=== PATIENT | female | born 1950 | race Caucasian/White ===

== ENCOUNTER 2021-09-20 16:02 | Emergency (ER) | payer OTHER, MEDICAID ==
[~2021-09-20] VITALS: Ht 149.9 cm; Wt 44.0 kg
[2021-09-20 16:42] VITALS: BP_SYST 117
--- NOTE | 2021-09-20 16:49 | NUR ---
Pt triaged and placed in waiting room. Dr. Madsen made aware.
--- NOTE | 2021-09-20 17:08 | NUR ---
Dr Madsen to waiting room to see patient.
--- NOTE | 2021-09-20 17:10 | NUR ---
Pt came in from home reporting lower back pain, chronic, due to skating roller derby in the past. Also reports PMH sz. Alert and oriented x 3. Ambulates with steady gait. Awaiting diagnostics per Dr Madsen.
[2021-09-20] MEDS ORDERED: levETIRAcetam 500 MG TABLET PO ONE (17:15)
[2021-09-20] MEDS ORDERED: HYDROcodone/ACETAMIN 10-325 MG TAB PO ONE (17:15)
--- NOTE | 2021-09-20 17:23 | NUR ---
Jose Juan that was ordered by Dr. Madsen has been given.
--- NOTE | 2021-09-20 17:24 | NUR ---
tax map technician drawing blood work in triage room. pt has no c/o.
[2021-09-20 17:41] LABS: BASOPHILS % (AUTO) 0.6 % (0.0-2.0); EOSINOPHILS # (AUTO) 0.4 K/uL (0.0-0.4); EOSINOPHILS % (AUTO) 5.7 % (0.0-4.0); HEMATOCRIT 35.3 % (36-48); HEMOGLOBIN 11.8 g/dL (12.0-16.0); LYMPHOCYTES # (AUTO) 1.6 K/uL (1.0-5.5); LYMPHOCYTES % (AUTO) 24.3 % (20.5-51.5); MEAN CORPUSCULAR HEMOGLOBIN 32 pg (27-31); MEAN CORPUSCULAR HGB CONC 34 % (32-36); MEAN CORPUSCULAR VOLUME 95 fL (79.0-98.0); MONOCYTES # (AUTO) 0.4 K/uL (0.0-1.0); MONOCYTES % (AUTO) 6.5 % (1.7-9.3); NEUTROPHILS % (AUTO) 62.9 % (40.0-70.0); PLATELET COUNT (AUTO) 431 K/uL (130-430); RED BLOOD CELL COUNT(AUTO) 3.72 MIL/uL (4.2-6.2); RED CELL DISTRIBUTION WIDTH 16.1 % (9.0-15.0); WHITE BLOOD COUNT (AUTO) 6.4 K/uL (4.8-10.8)
[2021-09-20 17:47] LABS: ANION GAP 5 (5-15); CALCIUM 9.8 mg/dL (8.4-11.0); CHLORIDE 107 mmol/L (98-107); CREATININE 0.81 mg/dL (0.55-1.30); GLUCOSE 94 mg/dL (70-99); POTASSIUM 4.1 mmol/L (3.5-5.1); SODIUM SERUM 138 mmol/L (136-145); UREA NITROGEN, BLOOD 12 mg/dL (8-21)
[2021-09-20 17:53] LABS: ALANINE AMINOTRANSFERASE 15 U/L (12-78); ALBUMIN 3.5 g/dL (3.4-4.8); ASPARTATE AMINOTRANSFERASE 17 U/L (10-37); TOTAL BILIRUBIN < 0.1 mg/dL (0.0-1.0)
[2021-09-20] MEDS ORDERED: HYDR-3917 PO (18:54)
[2021-09-20 19:21] VITALS: BP_SYST 117
--- NOTE | 2021-09-20 19:23 | NUR ---
Patient given written and verbal discharge instructions and verbalizes understanding. ER MD discussed with patient the results and treatment provided. Patient in stable condition. ID arm band removed. Rx of NORCO given. Patient educated on pain management and to follow up with PMD. Pain Scale 0/10. Opportunity for questions provided and answered. Medication side effect fact sheet provided.
== END 2021-09-20 19:21 | disposition home or self-care (01) ==
LOC: SED 16:02
DX: M54.9 Dorsalgia, unspecified (principal); R56.9 Unspecified convulsions
CPT/HCPCS: 36415; 80053; 85025; 99283

== ENCOUNTER 2021-09-21 13:23 | Emergency (ER) | payer OTHER, MEDICAID ==
[~2021-09-21] VITALS: Ht 149.9 cm; Wt 43.5 kg
[~2021-09-21 13:23] MED LIST: HYDR-3917 PO
[2021-09-21 14:18] VITALS: BP_SYST 129
--- NOTE | 2021-09-21 14:30 | NUR ---
pt triaged, vs stable, place pt back in waiting room adv that once we have room available we will call
--- NOTE | 2021-09-21 15:45 | NUR ---
PT AMBULATING IN LOBBY WITH STEADY GAIT
--- NOTE | 2021-09-21 16:38 | NUR ---
PT PLACED IN ER H1
--- NOTE | 2021-09-21 17:04 | NUR ---
ER DR. CHAPA EXAMINING PT
[2021-09-21] MEDS ORDERED: KETOROLAC TROMETHAMINE 30 MG VIAL IM ONE (17:30)
[2021-09-21 17:34] VITALS: BP_SYST 129
== END 2021-09-21 17:34 | disposition home or self-care (01) ==
LOC: SED 13:23
DX: S93.402A Sprain of unspecified ligament of left ankle, initial encounter (principal); M54.50 Low back pain, unspecified; F17.210 Nicotine dependence, cigarettes, uncomplicated; R56.9 Unspecified convulsions; X58.XXXA Exposure to other specified factors, initial encounter; Y93.89 Activity, other specified; Y92.89 Other specified places as the place of occurrence of the external cause; Y99.8 Other external cause status
CPT/HCPCS: 29540; 96372; 99283; J1885

== ENCOUNTER 2021-09-27 12:25 | Emergency (ER) | payer OTHER, MEDICAID ==
[~2021-09-27] VITALS: Ht 149.9 cm; Wt 44.5 kg
[2021-09-27 12:43] VITALS: BP_SYST 112
[2021-09-27] MEDS ORDERED: IPRATROPIUM/ALBUTEROL SULFATE 3 ML AMPUL.NEB (DUONEB) INH ONE (13:45)
[2021-09-27] MEDS ORDERED: LIDOCAINE PATCH 5% 1 EA TP SCH (13:45)
[2021-09-27] MEDS ORDERED: ALBUTEROL SULFATE 0.083% 2.5 MG/3 ML VIAL.NEB INH ONE (13:45)
[2021-09-27] MEDS ORDERED: predniSONE 20 MG TABLET PO ONE (13:45)
[2021-09-27] MEDS ORDERED: KETOROLAC TROMETHAMINE 15 MG VIAL IM ONE (13:45)
[2021-09-27] MEDS ORDERED: ALBMDI INH (14:13)
[2021-09-27] MEDS ORDERED: GUAI-723 PO (14:13)
[2021-09-27] MEDS ORDERED: PRED20TA PO (14:13)
[2021-09-27] MEDS ORDERED: BENZ100C92 PO (14:13)
[2021-09-27 14:33] VITALS: BP_SYST 112
== END 2021-09-27 14:33 | disposition home or self-care (01) ==
LOC: SED 12:25
DX: J06.9 Acute upper respiratory infection, unspecified (principal); G89.29 Other chronic pain; M54.6 Pain in thoracic spine; Z79.899 Other long term (current) drug therapy
CPT/HCPCS: 71046; 94640; 96372; 99283; J1885; J7512; J7613

== ENCOUNTER 2021-10-27 09:51 | Emergency (ER) | payer OTHER, MEDICAID ==
[~2021-10-27] VITALS: Ht 149.9 cm; Wt 44.0 kg
[~2021-10-27 09:51] MED LIST changes: +ALBMDI INH; +BENZ100C92 PO; +GUAI-723 PO; +PRED20TA PO
--- NOTE | 2021-10-27 09:55 | NUR ---
Patient to ER bed 2 to gown for evaluation. Side rails up. Report given to Marika.
[2021-10-27 10:01] VITALS: BP_SYST 139
--- NOTE | 2021-10-27 10:02 | NUR ---
Pt in bed #2 coming from home ambulatory with steady gait. Pt is A&Ox4. Pt c/o having sob x2 days. Pt's O2 saturation currently at 95% RA. No s/s of distress noted. Not using accessory muscles and respirations even and unlabored. No chest pain and denies n/v. Skin intact. NKA. Pt has hx of Bronchitis, CVA, Anuerysm, and seizures. Pt states she smokes about a pack of cigarettes a day. Connected pt to waste water worker. Bed in lowest position.
--- NOTE | 2021-10-27 10:14 | NUR ---
HAIDER Murrieta at bedside examining patient.
[2021-10-27] MEDS ORDERED: IPRATROPIUM BROM 0.5 MG/2.5 ML VIAL.NEB (ATROVENT) INH ONE (10:30)
--- NOTE | 2021-10-27 10:34 | NUR ---
RT at bedside providing breathing tx to pt.
--- NOTE | 2021-10-27 10:36 | NUR ---
computer systems technician at bedside.
[2021-10-27] MEDS ORDERED: NS 500 ML IV ONE (10:45)
[2021-10-27] MEDS ORDERED: cefTRIAXone 1 GM in D5W 50 ML IV ONE (10:45)
[2021-10-27] MEDS ORDERED: methylPREDNISolone SOD SUCC/PF 62.5 MG/ML VIAL IVP ONE (10:45)
[2021-10-27] MEDS ORDERED: AZITHROMYCIN 500 MG in NS 250 ML IV ONE (10:45)
[2021-10-27] MEDS ORDERED: ALBUTEROL SULFATE 0.083% 2.5 MG/3 ML VIAL.NEB INH ONE ×2 (10:45→13:00)
--- NOTE | 2021-10-27 10:46 | NUR ---
EKG performed at BS by myself (Marika LOPEZ). Physician given copy of EKG for review.
--- NOTE | 2021-10-27 10:58 | NUR ---
# 22 gauge angiocath placed to left wrist. Use of asceptic technique. Opsite placed over site. Blood return noted. Flushed with 10 cc of normal saline. No evidence of infiltration noted. Patient tolerated well.
[2021-10-27 11:04] LABS: BASOPHILS # (AUTO) 0.1 K/uL (0.0-0.2); BASOPHILS % (AUTO) 1.9 % (0.0-2.0); EOSINOPHILS # (AUTO) 0.4 K/uL (0.0-0.4); EOSINOPHILS % (AUTO) 8.9 % (0.0-4.0); HEMATOCRIT 34.7 % (36-48); HEMOGLOBIN 11.7 g/dL (12.0-16.0); LYMPHOCYTES # (AUTO) 1.1 K/uL (1.0-5.5); LYMPHOCYTES % (AUTO) 25.7 % (20.5-51.5); MEAN CORPUSCULAR HEMOGLOBIN 31 pg (27-31); MEAN CORPUSCULAR HGB CONC 34 % (32-36); MEAN CORPUSCULAR VOLUME 93 fL (79.0-98.0); MONOCYTES # (AUTO) 0.3 K/uL (0.0-1.0); MONOCYTES % (AUTO) 6.6 % (1.7-9.3); NEUTROPHILS # (AUTO) 2.4 K/uL (1.8-7.7); NEUTROPHILS % (AUTO) 56.9 % (40.0-70.0); PLATELET COUNT (AUTO) 268 K/uL (130-430); RED BLOOD CELL COUNT(AUTO) 3.74 MIL/uL (4.2-6.2); RED CELL DISTRIBUTION WIDTH 14.7 % (9.0-15.0); WHITE BLOOD COUNT (AUTO) 4.3 K/uL (4.8-10.8)
[2021-10-27] MEDS ORDERED: cefTRIAXone 1 GM VIAL ONE (11:09)
--- NOTE | 2021-10-27 11:15 | NUR ---
Chest X-Ray being done at bedside.
[2021-10-27 11:41] LABS: INR 0.9 (0.8-1.2); PROTHROMBIN TIME 9.9 SECS (9.5-12.5)
[2021-10-27] MEDS ORDERED: AZITHROMYCIN 500 MG/VIAL (ZITHROMAX) IV ONE (11:42)
[2021-10-27 12:14] LABS: ANION GAP 10 (5-15); CALCIUM 8.7 mg/dL (8.4-11.0); CHLORIDE 104 mmol/L (98-107); CREATININE 0.73 mg/dL (0.55-1.30); GLUCOSE 81 mg/dL (70-99); POTASSIUM 4.3 mmol/L (3.5-5.1); SODIUM SERUM 137 mmol/L (136-145); UREA NITROGEN, BLOOD 13 mg/dL (8-21)
[2021-10-27 12:25] LABS: ALANINE AMINOTRANSFERASE 15 U/L (12-78); ALBUMIN 3.6 g/dL (3.4-4.8); ASPARTATE AMINOTRANSFERASE 17 U/L (10-37)
[2021-10-27 12:55] LABS: TOTAL BILIRUBIN < 0.1 mg/dL (0.0-1.0)
[2021-10-27] MEDS ORDERED: PRED20TA PO (14:10)
[2021-10-27] MEDS ORDERED: ALBMDI INH (14:10)
[2021-10-27] MEDS ORDERED: ZIT250 PO (14:10)
[2021-10-27 14:29] VITALS: BP_SYST 129
--- NOTE | 2021-10-27 14:29 | NUR ---
Patient given written and verbal discharge instructions and verbalizes understanding. ER MD discussed with patient the results and treatment provided. Patient in stable condition. ID arm band removed. IV catheter removed intact and dressing applied, no active bleeding. Rx of ALBUTEROL, PREDNISONE, AND ZPAK given. Patient educated COPD SIGNS SYMPTOMS AND LIFESTYLE CHANGE. Opportunity for questions provided and answered. Medication side effect fact sheet provided.
== END 2021-10-27 14:29 | disposition home or self-care (01) ==
LOC: SED 09:51
DX: J20.9 Acute bronchitis, unspecified (principal); J44.1 Chronic obstructive pulmonary disease with (acute) exacerbation; F17.210 Nicotine dependence, cigarettes, uncomplicated
CPT/HCPCS: 36415; 71045; 80053; 83605; 83880; 84484; 85025; 85610; 87040; 93005; 94640; 96365; 96367; 96375; 99285; J0456; J0696; J2930; J7613; 96368

== ENCOUNTER 2022-09-30 12:30 | Emergency (ER) | payer OTHER, MEDICAID ==
[~2022-09-30] VITALS: Ht 149.9 cm; Wt 40.4 kg
[~2022-09-30 12:30] MED LIST changes: +ZIT250 PO
[2022-09-30 12:38] VITALS: BP_SYST 135
[2022-09-30] MEDS ORDERED: ALBMDI INH (12:42)
[2022-09-30] MEDS ORDERED: SOM350 PO (12:42)
[2022-09-30 12:50] VITALS: BP_SYST 135
[2022-10-01] MEDS ORDERED: ALBMDI INH (08:15)
[2022-10-01] MEDS ORDERED: SOM350 PO (08:15)
[2022-10-01] MEDS ORDERED: PRED20TA PO (08:15)
== END 2022-09-30 12:50 | disposition home or self-care (01) ==
LOC: SED 12:30
DX: J44.9 Chronic obstructive pulmonary disease, unspecified (principal); M54.50 Low back pain, unspecified; G89.29 Other chronic pain; R06.02 Shortness of breath; Z79.899 Other long term (current) drug therapy
CPT/HCPCS: 99283

== ENCOUNTER 2022-10-01 06:30 | Emergency (ER) | payer OTHER, MEDICAID ==
[~2022-10-01 06:30] MED LIST changes: +SOM350 PO
--- NOTE | 2022-10-01 06:30 | NUR ---
ER at bedside examining patient.
--- NOTE | 2022-10-01 06:30 | NUR ---
PT ROOMED TO BED 7, PT WAS PLACED ON CARDIAC MONITTORING. PT IN GOWN.
[2022-10-01 06:35] VITALS: BP_SYST 139
--- NOTE | 2022-10-01 06:50 | NUR ---
PT BIB SELF FROM HOME, AMBULATED TO BED 7. PT A&Ox4, ABLE TO MAKE NEEDS KNOWN. PT C/O LOWER BACK PAIN x3 DAYS. PT RATES PAIN 10/10/ PT DESCRIBES PAIN THROBBING. PT STATES SHE HAS SOB. PT DENIES N/V/D, FEVER AND CHILLS. PT DENIES CHEST PAIN. PT STATES SHE TOOK EXCEDRINE AT 0200. SAFETY MEASURES IN PLACE.
--- NOTE | 2022-10-01 07:24 | NUR ---
PT AWAKE AND ALERT, NO S/S OF DISCOMFORT NOTED AT THIS TIME. ENDORSED PT AND CARE TO ONCOMING NURSE JESSICA KRAUSE.
[2022-10-01 07:29] LABS: BASOPHILS # (AUTO) 0.1 K/uL (0.0-0.2); BASOPHILS % (AUTO) 0.9 % (0.0-2.0); EOSINOPHILS # (AUTO) 0.2 K/uL (0.0-0.4); EOSINOPHILS % (AUTO) 3.8 % (0.0-4.0); HEMOGLOBIN 13.8 g/dL (12.0-16.0); LYMPHOCYTES # (AUTO) 1.8 K/uL (1.0-5.5); LYMPHOCYTES % (AUTO) 30.7 % (20.5-51.5); MEAN CORPUSCULAR HEMOGLOBIN 31 pg (27-31); MEAN CORPUSCULAR HGB CONC 33 % (32-36); MEAN CORPUSCULAR VOLUME 95 fL (79.0-98.0); MONOCYTES # (AUTO) 0.5 K/uL (0.0-1.0); MONOCYTES % (AUTO) 8.4 % (1.7-9.3); NEUTROPHILS # (AUTO) 3.3 K/uL (1.8-7.7); NEUTROPHILS % (AUTO) 56.2 % (40.0-70.0); PLATELET COUNT (AUTO) 218 K/uL (130-430); RED BLOOD CELL COUNT(AUTO) 4.44 MIL/uL (4.2-6.2); RED CELL DISTRIBUTION WIDTH 14.9 % (9.0-15.0); WHITE BLOOD COUNT (AUTO) 5.9 K/uL (4.8-10.8)
[2022-10-01 07:48] LABS: ANION GAP 13 (5-15); CALCIUM 8.8 mg/dL (8.4-11.0); CHLORIDE 109 mmol/L (98-107); CREATININE 0.71 mg/dL (0.55-1.30); GLUCOSE 98 mg/dL (70-99); UREA NITROGEN, BLOOD 15 mg/dL (8-21)
[2022-10-01 07:54] LABS: ALANINE AMINOTRANSFERASE 14 U/L (12-78); ALBUMIN 3.9 g/dL (3.4-4.8); ASPARTATE AMINOTRANSFERASE 23 U/L (10-37); TOTAL BILIRUBIN 0.3 mg/dL (0.0-1.0)
[2022-10-01 08:08] LABS: BILIRUBIN,URINE NEGATIVE (NEGATIVE); BLOOD, URINE NEGATIVE (NEGATIVE); CLARITY/URINE CLEAR (CLEAR); COLOR,URINE YELLOW (YELLOW); GLUCOSE,URINE NEGATIVE (NEGATIVE); KETONES,URINE NEGATIVE (NEGATIVE); LEUKOCYTE ESTERASE ,URINE NEGATIVE (NEGATIVE); NITRITE, URINE NEGATIVE (NEGATIVE); PROTEIN URINE NEGATIVE (NEGATIVE); UROBILINOGEN,URINE 0.2 (0.2-1.0)
[2022-10-01] MEDS ORDERED: SOM350 PO (08:15)
[2022-10-01] MEDS ORDERED: PRED20TA PO (08:15)
[2022-10-01] MEDS ORDERED: ALBMDI INH (08:15)
[2022-10-01 08:29] LABS: ACETONE, SERUM NEGATIVE (NEGATIVE)
[2022-10-01] MEDS ORDERED: KETOROLAC TROMETHAMINE 30 MG VIAL IM ONE (08:30)
[2022-10-01 08:50] LABS: CREATINE KINASE MB 2.7 ng/mL (0-3.6)
[2022-10-01 08:53] VITALS: BP_SYST 135
--- NOTE | 2022-10-01 08:54 | NUR ---
Patient given written and verbal discharge instructions and verbalizes understanding. ER MD DR LATHAM discussed with patient the results and treatment provided. Patient in stable condition. ID arm band removed. Rx of ALBUTEROL, PREDNISONE, SOMA given. Patient educated on pain management and to follow up with PMD. Pain Scale 6/10. Opportunity for questions provided and answered. Medication side effect fact sheet provided.
== END 2022-10-01 08:54 | disposition home or self-care (01) ==
LOC: SED 06:30
DX: R53.1 Weakness (principal); Z79.899 Other long term (current) drug therapy
CPT/HCPCS: 99285; 71045; 80053; 82009; 82550; 82553; 85025; 84484; 36415; 93005; 96372; 83605; 81003; J1885

== ENCOUNTER 2022-10-05 08:26 | Emergency (ER) | payer OTHER, MEDICAID ==
[~2022-10-05] VITALS: Ht 149.9 cm; Wt 43.1 kg
[2022-10-05 08:30] VITALS: BP_SYST 161
--- NOTE | 2022-10-05 08:30 | NUR ---
Placed in room 07 . Placed on mini shifter, blood pressure machine and pulse oximeter. To gown for exam. Side rails up. Report given to TAMIE FLYNN AND TAMIE LUU.
--- NOTE | 2022-10-05 08:35 | NUR ---
Pt BIB self. C/O SOB with activity. Pt states hx of heavy smoking for past 40 years. pt states to smoke a pack a day. pt has hx of SOB. Pt denies NVD. AAOX4. PERRLA. No coughing noted. Accessory muscles being used upon inhalation. Pt able to speak full complete sentences. Pt in bed with side rails up.
--- NOTE | 2022-10-05 08:45 | NUR ---
ER at bedside examining patient.
[2022-10-05] MEDS ORDERED: KETOROLAC TROMETHAMINE 30 MG VIAL IM ONE (09:00)
[2022-10-05] MEDS ORDERED: predniSONE 20 MG TABLET PO ONE (09:00)
[2022-10-05] MEDS ORDERED: IPRATROPIUM/ALBUTEROL SULFATE 3 ML AMPUL.NEB (DUONEB) INH ONE (09:00)
--- NOTE | 2022-10-05 09:17 | NUR ---
RESPIRATORY THERAPIST BEDSIDE ADMINISTERING MEDICATION.
[2022-10-05] MEDS ORDERED: IPRATROPIUM/ALBUTEROL SULFATE 3 ML AMPUL.NEB (DUONEB) ONE (09:18)
[2022-10-05] MEDS ORDERED: PRED20TA PO (10:23)
[2022-10-05] MEDS ORDERED: PHEDM120 PO (10:29)
--- NOTE | 2022-10-05 10:31 | NUR ---
Patient given written and verbal discharge instructions and verbalizes understanding. ER MD discussed with patient the results and treatment provided. Patient in stable condition. ID arm band removed. Rx of PREDNISONE given. Patient educated on pain management and to follow up with PMD. Opportunity for questions provided and answered. Medication side effect fact sheet provided.
[2022-10-05 10:32] VITALS: BP_SYST 161
== END 2022-10-05 10:31 | disposition home or self-care (01) ==
LOC: SED 08:26
DX: J44.1 Chronic obstructive pulmonary disease with (acute) exacerbation (principal); F17.200 Nicotine dependence, unspecified, uncomplicated; Z79.899 Other long term (current) drug therapy
CPT/HCPCS: 99283; 96372; J7512; J1885

== ENCOUNTER 2022-10-11 15:57 | Emergency (ER) | payer OTHER, MEDICAID ==
[~2022-10-11] VITALS: Ht 149.9 cm; Wt 44.5 kg
[~2022-10-11 15:57] MED LIST changes: +PHEDM120 PO
[2022-10-11 16:10] VITALS: BP_SYST 121
[2022-10-11] MEDS ORDERED: LIDOCAINE PATCH 5% 1 EA TP ONE (19:15)
[2022-10-11] MEDS ORDERED: KETOROLAC TROMETHAMINE 30 MG VIAL IM ONE (19:15)
[2022-10-11] MEDS ORDERED: ACET-2634 PO (20:16)
[2022-10-11] MEDS ORDERED: LIDO1ADH77 TP (20:16)
[2022-10-11 20:22] VITALS: BP_SYST 132
[2022-10-12] MEDS ORDERED: NEU400 PO (21:05)
[2022-10-12] MEDS ORDERED: LEVE250T2 PO (21:05)
== END 2022-10-11 20:22 | disposition home or self-care (01) ==
LOC: SED 15:57
DX: M54.32 Sciatica, left side (principal); M54.50 Low back pain, unspecified; F17.200 Nicotine dependence, unspecified, uncomplicated; Z79.899 Other long term (current) drug therapy
CPT/HCPCS: 99283; 96372; J1885

== ENCOUNTER 2022-10-12 18:43 | Inpatient (IN) | payer OTHER, MEDICAID ==
[~2022-10-12] VITALS: Ht 149.9 cm; Wt 39.0 kg
[~2022-10-12 18:43] MED LIST changes: +ACET-2634 PO; +LIDO1ADH77 TP
[2022-10-12 18:52] VITALS: BP_SYST 132
--- NOTE | 2022-10-12 18:55 | NUR ---
Placed in room 06 . Placed on toy stuffer, blood pressure machine and pulse oximeter. To gown for exam. Side rails up.
[2022-10-12] MEDS ORDERED: IPRATROPIUM BROM 0.5 MG/2.5 ML VIAL.NEB (ATROVENT) INH ONE ×2 (19:22→19:30)
[2022-10-12] MEDS ORDERED: ALBUTEROL SULFATE 0.083% 2.5 MG/3 ML VIAL.NEB INH ONE ×2 (19:22→19:30)
--- NOTE | 2022-10-12 19:27 | NUR ---
RT at bedside.
[2022-10-12] MEDS ORDERED: ONDANSETRON HCL 4 MG/2 ML VIAL IVP ONE (19:30)
[2022-10-12] MEDS ORDERED: MORPHINE 4 MG INJ. 4 MG/ML VIAL IVP ONE (19:30)
--- NOTE | 2022-10-12 19:30 | NUR ---
PT PRESENTS TO ED WITH BACK PAIN AND ABD PAIN AND DIFFICULTY BREATHING PT STATES HER LOWER/MID RIGHT ABD FEELS LIKE SHE IS BEING PUNCHED IN HER STOMACH. 03/07 PAIN, ED MD MADE AWARE. CONNECTED TO VS MONITOR. BED LOWERED SAFETY RAILS UP, URINE COLLECTED STRAIGHT CATH URINE ELIGIO COLOR 20CC COLLECTED URINE DIP DOCUMENTED PT TOLERATED WELL, ED MD AWARE
[2022-10-12 19:52] LABS: HEMATOCRIT 38.2 % (36-48); HEMOGLOBIN 13.1 g/dL (12.0-16.0); MEAN CORPUSCULAR HEMOGLOBIN 32 pg (27-31); MEAN CORPUSCULAR HGB CONC 34 % (32-36); MEAN CORPUSCULAR VOLUME 93 fL (79.0-98.0); PLATELET COUNT (AUTO) 326 K/uL (130-430); RED CELL DISTRIBUTION WIDTH 14.8 % (9.0-15.0); WHITE BLOOD COUNT (AUTO) 2.4 K/uL (4.8-10.8)
--- NOTE | 2022-10-12 19:55 | NUR ---
# 20 gauge angiocath placed to LFA. Use of asceptic technique. Opsite placed over site. Blood return noted. Blood for lab drawn from site. Flushed with 10 cc of normal saline. No evidence of infiltration noted. Patient tolerated well.
[2022-10-12 20:10] LABS: ALANINE AMINOTRANSFERASE 7 U/L (12-78); ALBUMIN 2.7 g/dL (3.4-4.8); ANION GAP 14 (5-15); ASPARTATE AMINOTRANSFERASE 14 U/L (10-37); CALCIUM 8.3 mg/dL (8.4-11.0); CHLORIDE 99 mmol/L (98-107); CREATININE 0.82 mg/dL (0.55-1.30); GLUCOSE 110 mg/dL (70-99); TOTAL BILIRUBIN 0.5 mg/dL (0.0-1.0); UREA NITROGEN, BLOOD 37 mg/dL (8-21)
[2022-10-12 20:12] LABS: BAND % (MANUAL) 43 % (0-6); BASOPHILS % (MANUAL) 0 % (0-2); EOSINOPHILS % (MANUAL) 2 % (0-7); LYMPHOCYTES % (MANUAL) 9 % (20-46); MONOCYTES % (MANUAL) 20 % (0-11)
--- NOTE | 2022-10-12 20:46 | NUR ---
Patient taken to CT.
[2022-10-12] MEDS ORDERED: LEVE250T2 PO (21:05)
[2022-10-12] MEDS ORDERED: NEU400 PO (21:05)
--- NOTE | 2022-10-12 21:05 | NUR ---
Med Rec completed. Information provided by patient.
[2022-10-12] MEDS ORDERED: NACL 0.9% 1,000 ML IV ONE (21:15)
--- NOTE | 2022-10-12 21:40 | NUR ---
MD DR BENTON STATED THE NG TUBE ORDER IS A NURSING INTERVENTION TO BE STARTED IN THE CASE PT EXHIBITS N/V. CURRENTLY PT DENIES N/V. ORDER IS FOR LOW INTERMITENT SUCTION.
[2022-10-12] MEDS ORDERED: KCL 20 mEq in D5/0.45NS 1000mL 1,000 ML IV ONE ×2 (21:45→23:10)
--- NOTE | 2022-10-12 21:45 | NUR ---
Admit bed requested Patient will be admitted to care of Dr. BENTON. Admitted to TELEMETRY unit. Diagnosis ABDOMINAL PAIN Inpatient (Yes or No) YES Observation (Yes or No) NO Orientation concerns or request close to nursing station (Yes or No) NO Covid Status PENDING On vent or bipap NO Isolation requirements NO Needs a sitter NO From Home (Yes or if No enter name of facility) YES Requires Dialysis (Yes or No) NO Med Rec Completed (Yes of No) COMPLETED
--- NOTE | 2022-10-12 22:49 | NUR ---
Patient will be admitted to care of DR BENTON. Admitted to TELE unit. Will go to room 116A. Belongings list completed. Complete and up to date summary report printed. SBAR report to JOSE RN be given at bedside with opportunity for questions.
[2022-10-12] MEDS: PANTOPRAZOLE SODIUM 40 MG/VIAL (PROTONIX) IVP SCH (22:50)
[2022-10-12] MEDS: MORPHINE 4 MG INJ. 4 MG/ML VIAL IVP PRN (22:51)
[2022-10-12] MEDS ORDERED: PANTOPRAZOLE SODIUM 40 MG/VIAL (PROTONIX) ONE (22:51)
[2022-10-12 23:08] VITALS: BP_SYST 104
[2022-10-12] MEDS ORDERED: metroNIDAZOLE 500 mg/NS 200 ML IV ONE (23:09)
[2022-10-12] MEDS ORDERED: PIPERACILLIN/TAZOBACTAM 4.5 GM/VIAL (ZOSYN) IV ONE (23:10)
[2022-10-12] MEDS: metroNIDAZOLE 500 mg/NS 100 ML IV SCH (23:13)
[2022-10-12] MEDS: PIPERACILLIN/TAZO 4.5 GM in NS 100 ML IV SCH (23:56)
[2022-10-13 00:34] VITALS: BP_SYST 93
[2022-10-13] MEDS ORDERED: NS 500 ML IV ONE (01:30)
[2022-10-13] MEDS ORDERED: HYDROcodone/ACETAMIN 7.5-325 MG TAB PO PRN (01:30)
[2022-10-13 02:08] VITALS: BP_SYST 93
[2022-10-13] MEDS: ALBUTEROL SULFATE 0.083% 2.5 MG/3 ML VIAL.NEB INH PRN ×2 (03:08→15:40)
[2022-10-13] MEDS: IPRATROPIUM BROM 0.5 MG/2.5 ML VIAL.NEB (ATROVENT) INH PRN ×2 (03:09→15:40)
[2022-10-13 05:16] LABS: BASOPHILS % (AUTO) 0.1 % (0.0-2.0); EOSINOPHILS % (AUTO) 0.5 % (0.0-4.0); HEMATOCRIT 32.4 % (36-48); HEMOGLOBIN 10.9 g/dL (12.0-16.0); LYMPHOCYTES # (AUTO) 0.2 K/uL (1.0-5.5); LYMPHOCYTES % (AUTO) 9.5 % (20.5-51.5); MEAN CORPUSCULAR HEMOGLOBIN 31 pg (27-31); MEAN CORPUSCULAR HGB CONC 34 % (32-36); MEAN CORPUSCULAR VOLUME 93 fL (79.0-98.0); MONOCYTES # (AUTO) 0.1 K/uL (0.0-1.0); NEUTROPHILS # (AUTO) 1.4 K/uL (1.8-7.7); PLATELET COUNT (AUTO) 264 K/uL (130-430); RED BLOOD CELL COUNT(AUTO) 3.48 MIL/uL (4.2-6.2); RED CELL DISTRIBUTION WIDTH 14.9 % (9.0-15.0)
--- NOTE | 2022-10-13 05:20 | NUR ---
HOOK CATH: #16 FR Hook catheter with inserted with use of sterile technique. Bulb inflated with 10 cc sterile water. Immediate return of 200 cc virginia urine noted. Bedside drainage bag placed below level of bladder. Urine sample collected and sent to lab at 0535. Pt tolerated procedure well.
[2022-10-13 05:43] LABS: BILIRUBIN,URINE 3+ (NEGATIVE); BLOOD, URINE NEGATIVE (NEGATIVE); COLOR,URINE ORANGE (YELLOW); GLUCOSE,URINE NEGATIVE (NEGATIVE); KETONES,URINE NEGATIVE (NEGATIVE); LEUKOCYTE ESTERASE ,URINE NEGATIVE (NEGATIVE); PROTEIN URINE 2+ (NEGATIVE)
--- NOTE | 2022-10-13 05:45 | NUR ---
NG TUBE PLACEMENT: # 14 FR NG tube placed to right nare. Placement checked by auscultation of instilled air into stomach and aspiration of gastric contents. Tubing taped in place to prevent dislodging. Patient tolerated well.
[2022-10-13 05:48] LABS: ALANINE AMINOTRANSFERASE 8 U/L (12-78); ANION GAP 14 (5-15); ASPARTATE AMINOTRANSFERASE 11 U/L (10-37); CHLORIDE 105 mmol/L (98-107); CREATININE 0.77 mg/dL (0.55-1.30); GLUCOSE 112 mg/dL (70-99); TOTAL BILIRUBIN 0.5 mg/dL (0.0-1.0); UREA NITROGEN, BLOOD 29 mg/dL (8-21)
[2022-10-13 05:54] LABS: PROTHROMBIN TIME 10.5 SECS (9.5-12.5)
[2022-10-13] MEDS: LR 1,000 ML IV SCH ×3 (05:54→15:59)
--- NOTE | 2022-10-13 06:15 | NUR ---
PATIENT RESTING: Patient resting quietly. No acute distress noted. Vital signs within normal range.
[2022-10-13] MEDS: metroNIDAZOLE 500 mg/NS 100 ML IV SCH ×3 (06:19→22:29)
[2022-10-13] MEDS: PIPERACILLIN/TAZO 4.5 GM in NS 100 ML IV SCH ×3 (06:59→22:30)
[2022-10-13 07:28] LABS: CLARITY/URINE HAZY (CLEAR)
[2022-10-13 07:38] LABS: NEUTROPHILS % (AUTO) 81.9 % (40.0-70.0); WHITE BLOOD COUNT (AUTO) 1.8 K/uL (4.8-10.8)
--- NOTE | 2022-10-13 08:00 | NUR ---
Dr. Sheth came rounds and assessed the patient, made aware of patient's WBC 1.8. No new order at this time.
[2022-10-13 08:28] LABS: BACTERIA,URINE None Seen /HPF (None Seen)
[2022-10-13 08:29] LABS: NITRITE, URINE POSITIVE (NEGATIVE); RBC,URINE 0-3 /HPF (0-3); WBC,URINE 0-3 /HPF (0-3)
[2022-10-13 08:49] VITALS: BP_SYST 94
--- NOTE | 2022-10-13 08:53 | NUR ---
PULMONARY CONSUL CALLED AYANA GUTHRIE FOR A CNSULT DX COPD.
--- NOTE | 2022-10-13 08:56 | NUR ---
HEMATOLOGY /ONCOLOGY CALLED CONSULTED FOR NEUTROPENIA SPOKE WITH VI.
[2022-10-13] MEDS ORDERED: DIATR MEGLU/DIATRIZ SOD 30 ML SOLUTION PO ONE (09:59)
[2022-10-13] MEDS: PANTOPRAZOLE SODIUM 40 MG/VIAL (PROTONIX) IVP SCH (10:33)
[2022-10-13 11:30] VITALS: BP_SYST 96
[2022-10-13] MEDS: MORPHINE 4 MG INJ. 4 MG/ML VIAL IVP PRN ×2 (15:51→22:29)
[2022-10-13 17:33] VITALS: BP_SYST 111
[2022-10-13] MEDS ORDERED: LR 500 ML IV ONE (19:00)
--- NOTE | 2022-10-13 19:15 | NUR ---
RECEIVED REPORT ON PATIENT FROM JESSICA LOPEZ, ASSUMED CARE, AND STARTED ASSESSMENT.
[2022-10-13] MEDS: IPRATROPIUM/ALBUTEROL SULFATE 3 ML AMPUL.NEB (DUONEB) INH SCH (19:43)
[2022-10-13] MEDS: BUDESONIDE 0.5 MG/2 ML AMPUL.NEB INH SCH (19:44)
[2022-10-13 20:22] LABS: ANION GAP 11 (5-15); CALCIUM 7.9 mg/dL (8.4-11.0); CHLORIDE 100 mmol/L (98-107); CREATININE 0.79 mg/dL (0.55-1.30); GLUCOSE 74 mg/dL (70-99); UREA NITROGEN, BLOOD 31 mg/dL (8-21)
--- NOTE | 2022-10-13 22:30 | NUR ---
PATIENT C/O ABDOMINAL PAIN @ 03/07 AND REQUESTED PAIN MEDICATION. MEDICATED PT WITH MORPHINE 4MG IVP FOR PAIN PER MD ORDERS. WILL CONTINUE TO MONITOR AND ASSESS FOR SAFETY AND COMFORT.
[2022-10-14 00:16] VITALS: BP_SYST 95
[2022-10-14] MEDS: IPRATROPIUM/ALBUTEROL SULFATE 3 ML AMPUL.NEB (DUONEB) INH SCH ×4 (01:42→19:26)
[2022-10-14] MEDS: MORPHINE 4 MG INJ. 4 MG/ML VIAL IVP PRN ×3 (03:14→20:28)
--- NOTE | 2022-10-14 03:27 | NUR ---
PATIENT CONTINUE TO REQUEST PAIN MEDICATION FOR THE PAST TWO HOURS. IN SPITE OF REPEATEDLY BEING TOLD THAT THE MEDICATION CON ONLY BE GIVEN EVERY 4 HOURS SHE CONTINUES TO MAKE THE REQUEST. MEDICATED PATIENT WITH MORPHINE 4MG IVP FOR PAIN PER MD ORDERS. WILL CONTINUE TO MNITOR AND ASSESS FOR SAFETY AND COMFORT.
[2022-10-14 05:24] LABS: BASOPHILS % (AUTO) 0.2 % (0.0-2.0); EOSINOPHILS % (AUTO) 0.4 % (0.0-4.0); HEMATOCRIT 33.7 % (36-48); HEMOGLOBIN 11.3 g/dL (12.0-16.0); LYMPHOCYTES # (AUTO) 0.2 K/uL (1.0-5.5); LYMPHOCYTES % (AUTO) 3.4 % (20.5-51.5); MEAN CORPUSCULAR HEMOGLOBIN 31 pg (27-31); MEAN CORPUSCULAR HGB CONC 34 % (32-36); MEAN CORPUSCULAR VOLUME 93 fL (79.0-98.0); MONOCYTES # (AUTO) 0.2 K/uL (0.0-1.0); MONOCYTES % (AUTO) 2.9 % (1.7-9.3); NEUTROPHILS # (AUTO) 6.1 K/uL (1.8-7.7); NEUTROPHILS % (AUTO) 93.1 % (40.0-70.0); PLATELET COUNT (AUTO) 291 K/uL (130-430); RED BLOOD CELL COUNT(AUTO) 3.62 MIL/uL (4.2-6.2); RED CELL DISTRIBUTION WIDTH 15.6 % (9.0-15.0); WHITE BLOOD COUNT (AUTO) 6.5 K/uL (4.8-10.8)
[2022-10-14 05:51] LABS: ANION GAP 10 (5-15); CHLORIDE 103 mmol/L (98-107); GLUCOSE 79 mg/dL (70-99); UREA NITROGEN, BLOOD 32 mg/dL (8-21)
[2022-10-14] MEDS: metroNIDAZOLE 500 mg/NS 100 ML IV SCH ×3 (06:50→22:20)
[2022-10-14] MEDS: PIPERACILLIN/TAZO 4.5 GM in NS 100 ML IV SCH ×3 (06:58→22:20)
[2022-10-14] MEDS: BUDESONIDE 0.5 MG/2 ML AMPUL.NEB INH SCH ×2 (07:33→19:28)
[2022-10-14 08:00] VITALS: BP_SYST 105
--- NOTE | 2022-10-14 08:00 | NUR ---
No complaints,v/s stable
--- NOTE | 2022-10-14 08:05 | NUR ---
REPORT GIVEN TO JESSICA JAIME, AND CARE WAS TURNED OVER TO HIM.
[2022-10-14 08:09] LABS: TOTAL IRON BIND. CAPACITY 132 ug/dL (250-450)
[2022-10-14] MEDS: PANTOPRAZOLE SODIUM 40 MG/VIAL (PROTONIX) IVP SCH (09:00)
[2022-10-14] MEDS ORDERED: NALOXONE HCL 0.4 MG/ML AMP (NARCAN) IVP PRN ×2 (10:45)
[2022-10-14] MEDS ORDERED: HYDROmorphone 1 MG/ML INJ. CARTRIDGE IVP PRN ×2 (10:45)
[2022-10-14] MEDS ORDERED: BUPIVACAINE LIPOSOME/PF 266 MG/20 ML VIAL INFIL ONE (10:46)
[2022-10-14] MEDS ORDERED: ACETAMINOPHEN I.V. 1000 MG 100 ML IV ONE (10:49)
--- NOTE | 2022-10-14 11:00 | NUR ---
Transferred to OR,family notified
[2022-10-14 11:18] VITALS: BP_SYST 110
[2022-10-14] MEDS ORDERED: SUCCINYLCHOLINE CHLORIDE 20 MG/ML(QUELICIN) ONE (11:44)
[2022-10-14] MEDS ORDERED: ROCURONIUM BROMIDE 10 MG/ML (ZEMURON) ONE (11:44)
[2022-10-14] MEDS ORDERED: DEXAMETHASONE SOD PHOSPHATE 4 MG/ML VIAL ONE (11:44)
[2022-10-14] MEDS ORDERED: fentaNYL CITRATE/PF 100 MCG/2 ML AMP ONE (11:44)
[2022-10-14] MEDS ORDERED: WATER FOR IRRIGATION,STERILE 1,000 ML IRRIG.SOLN IR ONE (11:44)
[2022-10-14] MEDS ORDERED: PROPOFOL 200MG/ 20ML VIAL (DIPRIVAN) IV ONE (11:44)
[2022-10-14] MEDS ORDERED: NS 1000 ML IV.SOLN IV ONE (11:44)
[2022-10-14] MEDS ORDERED: DESFLURANE 15 MIN GAS INH ONE (11:44)
[2022-10-14] MEDS ORDERED: CEFAZOLIN 1 GM IVPB PREMIX 50 ML IV ONE (11:44)
[2022-10-14] MEDS ORDERED: SUGAMMADEX SODIUM 200 MG/2 ML VIAL IV ONE (11:44)
[2022-10-14] MEDS ORDERED: ONDANSETRON HCL 4 MG/2 ML VIAL ONE (11:44)
[2022-10-14] MEDS ORDERED: NS IRRIG SOLN 5000 ML IR ONE (11:44)
[2022-10-14 13:10] VITALS: BP_SYST 123
--- NOTE | 2022-10-14 14:00 | NUR ---
Returned from pacu ,received report from naren Goodrich stable,no complaints,abdominal dressing clean dry ,intact.
[2022-10-14] MEDS ORDERED: D5LR IV SCH (15:00)
[2022-10-14] MEDS ORDERED: POTASSIUM CHLORIDE IV SCH (15:00)
--- NOTE | 2022-10-14 19:00 | NUR ---
Medicated once for abdominal pain with good results,no output from n/g to liws,report given to Hussain
[2022-10-14 20:00] VITALS: BP_SYST 122
--- NOTE | 2022-10-14 23:15 | NUR ---
PT REMOVED IV FOUND IV CATHETER OUT. PT STATED SHE TOOK IT OUR BECAUSE IT WAS HURT. NEED TO OBTAIN NEW IV.
[2022-10-14 23:19] VITALS: BP_SYST 122
[2022-10-15] MEDS: IPRATROPIUM/ALBUTEROL SULFATE 3 ML AMPUL.NEB (DUONEB) INH SCH ×4 (01:43→19:25)
[2022-10-15] MEDS: MORPHINE 4 MG INJ. 4 MG/ML VIAL IVP PRN ×5 (01:53→20:36)
--- NOTE | 2022-10-15 02:10 | NUR ---
IV REMOVED AGAIN PT HAD IV AT [facility] BUT ACCIDENTLY PT REMOVED IT AGAIN. NEED NEW IV. PT REPORTED SHE IS THIRSTY. PT IS NPO. BED IS LOWEST POSITION. SAFETY CHECKS IN PLACE. CONTINUE TO MONITOR
--- NOTE | 2022-10-15 02:24 | NUR ---
Opening Note PT LYING IN BED AND EYES OPEN. TOW FAMILY MEMBERS AT THE BEDSIDE. BREATHING EVEN AND NONLABORED VIA NASAL CANNULAR 2L. REPORTED BACK PAIN AND 10/10. SURGICAL INCISION IS COVERED DRESSING. IV IS PATENT AND IV RUNNING AT RFA. BED ALARM ON. SAFETY CHECKS IN PLACE. CALL LIGHT IN REACH. CONTINUE TO MONITOR Addendum: 10/15/22 at 0239 by Hussain Pettit LVN TIME CORRECTION 10/14/[id number]
[2022-10-15 06:34] LABS: BASOPHILS % (AUTO) 0.2 % (0.0-2.0); HEMATOCRIT 32.1 % (36-48); HEMOGLOBIN 10.8 g/dL (12.0-16.0); LYMPHOCYTES # (AUTO) 0.2 K/uL (1.0-5.5); MEAN CORPUSCULAR HEMOGLOBIN 32 pg (27-31); MEAN CORPUSCULAR HGB CONC 34 % (32-36); MEAN CORPUSCULAR VOLUME 94 fL (79.0-98.0); MONOCYTES # (AUTO) 0.3 K/uL (0.0-1.0); MONOCYTES % (AUTO) 2.9 % (1.7-9.3); NEUTROPHILS # (AUTO) 8.2 K/uL (1.8-7.7); NEUTROPHILS % (AUTO) 94.9 % (40.0-70.0); PLATELET COUNT (AUTO) 290 K/uL (130-430); RED BLOOD CELL COUNT(AUTO) 3.43 MIL/uL (4.2-6.2); RED CELL DISTRIBUTION WIDTH 15.8 % (9.0-15.0); WHITE BLOOD COUNT (AUTO) 8.6 K/uL (4.8-10.8)
[2022-10-15 06:46] LABS: ALANINE AMINOTRANSFERASE 15 U/L (12-78); ALBUMIN 1.9 g/dL (3.4-4.8); ANION GAP 13 (5-15); ASPARTATE AMINOTRANSFERASE 30 U/L (10-37); CALCIUM 8.5 mg/dL (8.4-11.0); CHLORIDE 110 mmol/L (98-107); CREATININE 0.79 mg/dL (0.55-1.30); GLUCOSE 99 mg/dL (70-99); TOTAL BILIRUBIN 0.4 mg/dL (0.0-1.0); UREA NITROGEN, BLOOD 39 mg/dL (8-21)
[2022-10-15] MEDS: PIPERACILLIN/TAZO 4.5 GM in NS 100 ML IV SCH ×3 (06:55→21:04)
[2022-10-15] MEDS: metroNIDAZOLE 500 mg/NS 100 ML IV SCH ×3 (06:55→22:38)
[2022-10-15] MEDS: BUDESONIDE 0.5 MG/2 ML AMPUL.NEB INH SCH ×2 (07:19→19:45)
--- NOTE | 2022-10-15 07:30 | NUR ---
Initial notes Received patient AAOx4 with periods of forgetfulness. Complain of mild abdominal discomfort, respiration even and unlabored oxygen saturation 92% on 2L nasal canula. NGT to right nares intact noted brown drainage in tubing line. Abdominal surgical site covered with abdominal pad no drainage noted, bowel sounds hypoactive. Vera catheter draining virginia color urine to gravity. IV infusing left forearm patient. Continue to maintain safety precaution, bed in low position and call light w/in reached.
--- NOTE | 2022-10-15 07:36 | NUR ---
CLOSING NOTE PT LYING IN BED AND EYES OPEN. PT CONFUSED AND FORGETFUL. NEW IV ACCESS ON LEFT FOREARM 24G. NO S/S OF ACUTE DISTRESS OR PAIN. BREATHING EVEN AND NONLABORED. SAFETY CHECKS IN PLACE. CALL LIGHT IN REACH. ENDORSED TO DAY SHIFT NURSE.
[2022-10-15 07:55] VITALS: BP_SYST 132
[2022-10-15 08:06] LABS: FOLATE (FOLIC ACID) 7.2 ng/mL (>3.0)
[2022-10-15] MEDS: PANTOPRAZOLE SODIUM 40 MG/VIAL (PROTONIX) IVP SCH (09:10)
[2022-10-15 12:00] VITALS: BP_SYST 128
[2022-10-15] MEDS: KCL 30mEq in D5/0.45NS 1000 mL 1,000 ML IV SCH ×3 (14:00→20:37)
[2022-10-15 16:00] VITALS: BP_SYST 130
[2022-10-15 20:00] VITALS: BP_SYST 137
[2022-10-16] VITALS: BP_SYST 129
[2022-10-16] MEDS: IPRATROPIUM/ALBUTEROL SULFATE 3 ML AMPUL.NEB (DUONEB) INH SCH ×4 (00:40→19:41)
[2022-10-16] MEDS: KCL 30mEq in D5/0.45NS 1000 mL 1,000 ML IV SCH (04:19)
[2022-10-16] MEDS: MORPHINE 4 MG INJ. 4 MG/ML VIAL IVP PRN ×6 (04:19→20:53)
--- NOTE | 2022-10-16 04:30 | NUR ---
Called RT for a breathing treatment.
[2022-10-16] MEDS: metroNIDAZOLE 500 mg/NS 100 ML IV SCH ×3 (05:17→21:13)
[2022-10-16 06:05] LABS: BASOPHILS % (AUTO) 0.1 % (0.0-2.0); EOSINOPHILS % (AUTO) 0.6 % (0.0-4.0); HEMATOCRIT 29.6 % (36-48); LYMPHOCYTES # (AUTO) 0.4 K/uL (1.0-5.5); LYMPHOCYTES % (AUTO) 6.9 % (20.5-51.5); MEAN CORPUSCULAR HEMOGLOBIN 31 pg (27-31); MEAN CORPUSCULAR HGB CONC 34 % (32-36); MEAN CORPUSCULAR VOLUME 93 fL (79.0-98.0); MONOCYTES # (AUTO) 0.3 K/uL (0.0-1.0); MONOCYTES % (AUTO) 4.9 % (1.7-9.3); NEUTROPHILS # (AUTO) 5.4 K/uL (1.8-7.7); NEUTROPHILS % (AUTO) 87.5 % (40.0-70.0); PLATELET COUNT (AUTO) 251 K/uL (130-430); RED CELL DISTRIBUTION WIDTH 15.6 % (9.0-15.0); WHITE BLOOD COUNT (AUTO) 6.2 K/uL (4.8-10.8)
[2022-10-16] MEDS: PIPERACILLIN/TAZO 4.5 GM in NS 100 ML IV SCH ×3 (06:10→22:10)
[2022-10-16 06:13] LABS: ANION GAP 10 (5-15); CALCIUM 7.8 mg/dL (8.4-11.0); CHLORIDE 114 mmol/L (98-107); CREATININE 0.63 mg/dL (0.55-1.30); GLUCOSE 130 mg/dL (70-99); UREA NITROGEN, BLOOD 31 mg/dL (8-21)
--- NOTE | 2022-10-16 06:25 | NUR ---
NGT re-inserted Pt pulled out NG tube. Pt stated she was dreaming and just pulled it out. Re-inserted 16F NG tube. Placement confirmed with another RN. Pt tolerated procedure.
--- NOTE | 2022-10-16 06:32 | NUR ---
CXR at bedside to confirm NGT placement.
[2022-10-16] MEDS: BUDESONIDE 0.5 MG/2 ML AMPUL.NEB INH SCH ×2 (07:11→19:55)
[2022-10-16 07:36] VITALS: BP_SYST 155
--- NOTE | 2022-10-16 08:00 | NUR ---
Initial notes Received patient AAOx4 with periods of forgetfulness. Complain of mild abdominal discomfort, respiration even and unlabored oxygen saturation 92-94% on 2L nasal canula. NGT to right nares intermittent suction noted brown drainage in tubing line. Abdominal surgical site covered with abdominal pad no drainage noted, bowel sounds hypoactive. Vera catheter draining virginia color urine to gravity. IV infusing right forearm patient. Continue to maintain safety precaution, bed in low position and call light w/in reached.
[2022-10-16] MEDS: PANTOPRAZOLE SODIUM 40 MG/VIAL (PROTONIX) IVP SCH (08:04)
[2022-10-16] MEDS: DEXTROMET/BENZOCAIN/MENTHOL SF 1 LOZENGE MM PRN ×2 (09:55→17:00)
[2022-10-16] MEDS ORDERED: KCL 20 mEq in D5/0.45NS 1000mL 1,000 ML IV SCH (11:00)
[2022-10-16 11:19] VITALS: BP_SYST 158
[2022-10-16 15:23] VITALS: BP_SYST 135
--- NOTE | 2022-10-16 16:00 | NUR ---
Charge nurse verbalizes if patient remove NGT do not insert per , will endorse to oncoming nurse
[2022-10-16] MEDS: KCL 10 mEq in D5/0.45NS 1000mL 1,000 ML IV SCH (17:00)
[2022-10-16 19:00] VITALS: BP_SYST 149
--- NOTE | 2022-10-16 19:00 | NUR ---
closing Patient resting in bed with family at bedside, respiration even and unlabored oxygen saturation 92-94% on 2L nasal canula. NGT to right nares intermittent suction noted brown drainage in tubing line. Abdominal surgical site covered with abdominal dressing intact. Vera catheter draining virginia color urine to gravity. IV infusing right forearm patient. Medicated throughout shift Continue to maintain safety precaution, bed in low position and call light w/in reached.
--- NOTE | 2022-10-16 19:15 | NUR ---
change of shift.pt.presents s/p surgery.pt.presents dsg intact absent drainage/inflammation.pt.presents blevins cath intact; patent.pt.presents iv access intact;patent iv fluids infusing.02 therapy administered via nasal cannulae 02-sat%=94%. call light/telephone w/in access of the pt.
[2022-10-16 20:00] VITALS: BP_SYST 143
--- NOTE | 2022-10-16 20:00 | NUR ---
pt.assessed.v/s assessed values wnl.o2 sat%=94%.pt.stated pain present pt.apprised pain medication morphine due@2030p. pt's presents npo diet status.ngtube intact location rt.nares suction low.blevins cath intact.pt.assessed for cleanliness pt. repositioned.call light/telephone placed w/in access of the pt.
--- NOTE | 2022-10-16 21:00 | NUR ---
2200p medication flagyl abx ivpb administered@this hour.
--- NOTE | 2022-10-16 22:00 | NUR ---
pt.assessed.pt.quiescent.02-mon%=94%.per flacc pain mgx pt.absent facial grimaces/body posturing.pt.assessed for cleanliness pt.repositioned.gen jones.call light/telephone placed w/in access of the pt. Addendum: 10/16/22 at 2304 by Juan Manuel Castellanos RN zosyn abx ivpb 2200p dose administered.
--- NOTE | 2022-10-17 | NUR ---
pt.assessed.v/s assessed values wnl.pt.suctioned.02-sat%=94%.iv access/blevins cath intact;patent.pt.assessed for cleanliness pt.repositioned.call light/telephone placed w/in access of the pt.
[2022-10-17] MEDS: guaiFENesin 200 MG/CODEINE 20 MG/ 10 ML UDC PO PRN ×2 (00:23→05:15)
[2022-10-17] MEDS: IPRATROPIUM/ALBUTEROL SULFATE 3 ML AMPUL.NEB (DUONEB) INH SCH ×4 (01:00→19:36)
[2022-10-17 01:25] VITALS: BP_SYST 143
--- NOTE | 2022-10-17 01:30 | NUR ---
pt.requested medication;pain.morphine;4mg ivp administered.to assess the efficacy of the pain medication per pain mgx protocol.
[2022-10-17] MEDS: MORPHINE 4 MG INJ. 4 MG/ML VIAL IVP PRN ×6 (01:36→20:20)
--- NOTE | 2022-10-17 02:00 | NUR ---
pt.assessed.pt.quiescent.per flacc pain mgx pt.absent facial grimaces/body posturing.ng-tube,iv access, blevins cath intact;patent.pt.assessed for cleanliness pt.repositioned.call light/telephone placed w/in access of the pt.
--- NOTE | 2022-10-17 04:00 | NUR ---
pt.assessed.pt.quiescent;awake.02-sat%=94%.no c/o pain,nausea.no requests posited@this hour.iv access,blevins cath intact;patent.pt.assessed for cleanliness pt.repositioned.call light/telephone placed w/in access of the pt.
[2022-10-17 04:32] LABS: BASOPHILS % (AUTO) 0.1 % (0.0-2.0); EOSINOPHILS # (AUTO) 0.1 K/uL (0.0-0.4); EOSINOPHILS % (AUTO) 1.7 % (0.0-4.0); HEMATOCRIT 30.1 % (36-48); LYMPHOCYTES # (AUTO) 0.4 K/uL (1.0-5.5); LYMPHOCYTES % (AUTO) 7.8 % (20.5-51.5); MEAN CORPUSCULAR HEMOGLOBIN 31 pg (27-31); MEAN CORPUSCULAR HGB CONC 33 % (32-36); MEAN CORPUSCULAR VOLUME 93 fL (79.0-98.0); MONOCYTES # (AUTO) 0.3 K/uL (0.0-1.0); MONOCYTES % (AUTO) 5.3 % (1.7-9.3); NEUTROPHILS # (AUTO) 4.6 K/uL (1.8-7.7); NEUTROPHILS % (AUTO) 85.1 % (40.0-70.0); PLATELET COUNT (AUTO) 228 K/uL (130-430); RED BLOOD CELL COUNT(AUTO) 3.23 MIL/uL (4.2-6.2); RED CELL DISTRIBUTION WIDTH 16.1 % (9.0-15.0); WHITE BLOOD COUNT (AUTO) 5.4 K/uL (4.8-10.8)
[2022-10-17 04:43] LABS: ANION GAP 9 (5-15); CALCIUM 8.1 mg/dL (8.4-11.0); CHLORIDE 112 mmol/L (98-107); CREATININE 0.49 mg/dL (0.55-1.30); GLUCOSE 85 mg/dL (70-99); UREA NITROGEN, BLOOD 18 mg/dL (8-21)
[2022-10-17] MEDS: KCL 10 mEq in D5/0.45NS 1000mL 1,000 ML IV SCH ×3 (05:14→16:18)
[2022-10-17] MEDS: metroNIDAZOLE 500 mg/NS 100 ML IV SCH ×3 (05:14→23:58)
[2022-10-17] MEDS: DEXTROMET/BENZOCAIN/MENTHOL SF 1 LOZENGE MM PRN ×2 (05:15→23:56)
[2022-10-17] MEDS: PIPERACILLIN/TAZO 4.5 GM in NS 100 ML IV SCH ×3 (05:18→23:59)
--- NOTE | 2022-10-17 06:00 | NUR ---
pt.assessed.pt.requested medication pain,throat lozenge,robitussin.medications administered.morphine;4mg ivp administered. to assess the efficacy of the pain medication per pain mgx protocol.iv access,blevins cath intact;patent.pt.assessed for cleanliness pt.repositioned.o2-sat%=94%.call light/telephone placed w/in access of the pt.
[2022-10-17] MEDS: BUDESONIDE 0.5 MG/2 ML AMPUL.NEB INH SCH ×2 (06:56→19:00)
[2022-10-17 08:32] VITALS: BP_SYST 162
[2022-10-17] MEDS: ONDANSETRON HCL 4 MG/2 ML VIAL IVP PRN (09:31)
[2022-10-17] MEDS: PANTOPRAZOLE SODIUM 40 MG/VIAL (PROTONIX) IVP SCH (09:32)
[2022-10-17 11:33] VITALS: BP_SYST 149
[2022-10-17 11:35] VITALS: BP_SYST 148; BP_SYST 153
[2022-10-17] MEDS ORDERED: ENOXAPARIN SODIUM 30 MG/0.3 ML SYRINGE SUBCUT ONE (12:15)
[2022-10-17 12:36] LABS: FERRITIN 289 ng/mL (15-150)
[2022-10-17 15:31] VITALS: BP_SYST 135
--- NOTE | 2022-10-17 20:00 | NUR ---
Received pt in bed. Pt awake and oriented. Noticed o2 sat only 77-78% w/o o2. Encouraged to keep N/C O2 2l/min. Mid-abdomen incision intact with beto.Tolerated clear liquid diet. Breathing treatment given by RT. Medicated Morphine 4 mg and Zofran 4 mg ivp for abdominal pain and nausea.
--- NOTE | 2022-10-17 22:24 | NUR ---
RD Recommendation RD Recommendations * Continue on clear liquid diet per MD Rx * Advance diet within 1-3 days as tolerated and appropriate per MD Rx -If unable to advance diet, consider alternative nutrition support * Recommend Ensure Clear TID + Gil TID to help meet nutrient needs Monitor & evaluate diet advancement, PO intake, GI, skin, labs Please refer to RD Assessment for details RODRIGO HODGSON Addendum: 10/17/22 at [address] Amended: Links added.
[2022-10-18 00:12] VITALS: BP_SYST 137
[2022-10-18] MEDS: IPRATROPIUM/ALBUTEROL SULFATE 3 ML AMPUL.NEB (DUONEB) INH SCH ×4 (00:40→19:55)
[2022-10-18] MEDS: MORPHINE 4 MG INJ. 4 MG/ML VIAL IVP PRN ×7 (04:01→22:20)
[2022-10-18 04:54] LABS: ANION GAP 8 (5-15); CALCIUM 7.8 mg/dL (8.4-11.0); CHLORIDE 110 mmol/L (98-107); CREATININE 0.52 mg/dL (0.55-1.30); GLUCOSE 122 mg/dL (70-99); UREA NITROGEN, BLOOD 20 mg/dL (8-21)
[2022-10-18] MEDS: metroNIDAZOLE 500 mg/NS 100 ML IV SCH ×3 (05:43→21:05)
[2022-10-18] MEDS: ONDANSETRON HCL 4 MG/2 ML VIAL IVP PRN ×3 (05:46→22:35)
--- NOTE | 2022-10-18 06:07 | NUR ---
Pt slept after Morphine. Used bedpan- virginia colored urine. No BM and no flatus. Cont IVF and Zosyn/ Flagyl as ordered. Educated pt stop smoking.Cont Seizure precaution. Side rails padded. Tolerated clear liquid diet.
--- NOTE | 2022-10-18 06:42 | NUR ---
Updated pt's condition to Dr Sheth this am. Changed diet to Full liquid with ensure with each meal.
[2022-10-18] MEDS: PIPERACILLIN/TAZO 4.5 GM in NS 100 ML IV SCH ×3 (06:57→22:21)
[2022-10-18] MEDS: BUDESONIDE 0.5 MG/2 ML AMPUL.NEB INH SCH ×2 (07:25→19:55)
[2022-10-18 07:51] VITALS: BP_SYST 139
[2022-10-18] MEDS: PANTOPRAZOLE SODIUM 40 MG/VIAL (PROTONIX) IVP SCH (08:31)
[2022-10-18] MEDS: ENOXAPARIN SODIUM 30 MG/0.3 ML SYRINGE SUBCUT SCH (08:32)
[2022-10-18] MEDS ORDERED: NALOXONE HCL 0.4 MG/ML AMP (NARCAN) IVP PRN (11:00)
[2022-10-18] MEDS: KCL 10 mEq in D5/0.45NS 1000mL 1,000 ML IV SCH ×2 (11:00→17:26)
[2022-10-18 12:48] VITALS: BP_SYST 121
--- NOTE | 2022-10-18 15:36 | NUR ---
PHYSICAL THERAPY CO-SIGN The Physical Therapy Progress Notes documented by Sales Representative [facility] To Door have been reviewed. Reviewed/Co-Signed by: Pio Ramos Documentation Done by:NOREEN PENG Addendum: 10/18/22 at 1536 by Pio Ramos PT Amended: Links added.
[2022-10-18] MEDS: DEXTROMET/BENZOCAIN/MENTHOL SF 1 LOZENGE MM PRN (16:34)
[2022-10-18 17:17] VITALS: BP_SYST 119
[2022-10-18] MEDS: guaiFENesin 200 MG/CODEINE 20 MG/ 10 ML UDC PO PRN (17:21)
[2022-10-18 18:51] VITALS: BP_SYST 126
[2022-10-18 20:34] VITALS: BP_SYST 130
[2022-10-19] MEDS: IPRATROPIUM/ALBUTEROL SULFATE 3 ML AMPUL.NEB (DUONEB) INH SCH ×4 (00:22→19:26)
[2022-10-19 00:30] VITALS: BP_SYST 119
--- NOTE | 2022-10-19 03:05 | NUR ---
Patient reporting shortness of breath. Wheezes noted. O2 93% on 2L NC, BP 128/81, HR 102. Patient repositioned and head of bed elevated with some relief. Called RT for PRN breathing treatment.
[2022-10-19] MEDS: ALBUTEROL SULFATE 0.083% 2.5 MG/3 ML VIAL.NEB INH PRN (03:18)
[2022-10-19 05:01] LABS: BASOPHILS % (AUTO) 0.2 % (0.0-2.0); EOSINOPHILS # (AUTO) 0.1 K/uL (0.0-0.4); EOSINOPHILS % (AUTO) 1.7 % (0.0-4.0); HEMATOCRIT 30.2 % (36-48); HEMOGLOBIN 10.2 g/dL (12.0-16.0); LYMPHOCYTES # (AUTO) 0.5 K/uL (1.0-5.5); LYMPHOCYTES % (AUTO) 9.8 % (20.5-51.5); MEAN CORPUSCULAR HEMOGLOBIN 31 pg (27-31); MEAN CORPUSCULAR HGB CONC 34 % (32-36); MEAN CORPUSCULAR VOLUME 93 fL (79.0-98.0); MONOCYTES # (AUTO) 0.2 K/uL (0.0-1.0); MONOCYTES % (AUTO) 3.6 % (1.7-9.3); NEUTROPHILS # (AUTO) 4.7 K/uL (1.8-7.7); NEUTROPHILS % (AUTO) 84.7 % (40.0-70.0); PLATELET COUNT (AUTO) 205 K/uL (130-430); RED BLOOD CELL COUNT(AUTO) 3.24 MIL/uL (4.2-6.2); RED CELL DISTRIBUTION WIDTH 15.9 % (9.0-15.0); WHITE BLOOD COUNT (AUTO) 5.6 K/uL (4.8-10.8)
[2022-10-19] MEDS: metroNIDAZOLE 500 mg/NS 100 ML IV SCH ×2 (05:21→15:53)
[2022-10-19] MEDS: MORPHINE 4 MG INJ. 4 MG/ML VIAL IVP PRN (05:21)
--- NOTE | 2022-10-19 05:23 | NUR ---
Page Dr. Domenic Lambert waiting for call back
[2022-10-19 05:25] LABS: ANION GAP 9 (5-15); CHLORIDE 109 mmol/L (98-107); CREATININE 0.61 mg/dL (0.55-1.30); GLUCOSE 129 mg/dL (70-99); UREA NITROGEN, BLOOD 27 mg/dL (8-21)
--- NOTE | 2022-10-19 05:48 | NUR ---
DR. BENTON Patient's urine output is red this morning. Still having shortness of breath that improved slightly after PRN breathing treatment, but crackles noted. 93% on 3L NC, HR 113, BP 132/75. Notified Dr. Benton. Received order to hold IV fluids, chest X-ray this morning, and UA/urine culture.
[2022-10-19] MEDS: PIPERACILLIN/TAZO 4.5 GM in NS 100 ML IV SCH ×2 (06:11→15:53)
[2022-10-19] MEDS: BUDESONIDE 0.5 MG/2 ML AMPUL.NEB INH SCH ×2 (07:15→19:40)
[2022-10-19 08:47] VITALS: BP_SYST 131
[2022-10-19] MEDS ORDERED: traMADol HCL HCL 50 MG TABLET (ULTRAM) PO ONE (09:15)
[2022-10-19] MEDS: PANTOPRAZOLE SODIUM 40 MG/VIAL (PROTONIX) IVP SCH (09:44)
[2022-10-19] MEDS: ENOXAPARIN SODIUM 30 MG/0.3 ML SYRINGE SUBCUT SCH (09:45)
[2022-10-19 11:14] VITALS: BP_SYST 132
[2022-10-19] MEDS: traMADol HCL HCL 50 MG TABLET (ULTRAM) PO SCH ×2 (13:00→19:10)
--- NOTE | 2022-10-19 14:12 | NUR ---
PHYSICAL THERAPY CO-SIGN The Physical Therapy Progress Notes documented by Respiratory Therapist have been reviewed. Reviewed/Co-Signed by: Pio Ramos Documentation Done by:NOREEN PENG Addendum: 10/19/22 at 1412 by Pio Ramos PT Amended: Links added.
[2022-10-19 15:03] VITALS: BP_SYST 120
[2022-10-19 20:00] VITALS: BP_SYST 119
[2022-10-20] MEDS: IPRATROPIUM/ALBUTEROL SULFATE 3 ML AMPUL.NEB (DUONEB) INH SCH ×4 (00:01→20:01)
[2022-10-20] MEDS: traMADol HCL HCL 50 MG TABLET (ULTRAM) PO SCH ×4 (00:07→21:44)
[2022-10-20] MEDS: guaiFENesin 200 MG/CODEINE 20 MG/ 10 ML UDC PO PRN ×2 (01:11→23:49)
[2022-10-20 01:38] VITALS: BP_SYST 125
--- NOTE | 2022-10-20 03:30 | NUR ---
DR. BENTON called ordered a 12 lead EKG for the patient. Order noted and carried out.
[2022-10-20] MEDS: BUDESONIDE 0.5 MG/2 ML AMPUL.NEB INH SCH ×2 (07:21→20:01)
[2022-10-20 08:35] LABS: ANION GAP 5 (5-15); CALCIUM 8.2 mg/dL (8.4-11.0); CHLORIDE 110 mmol/L (98-107); CREATININE 0.41 mg/dL (0.55-1.30); GLUCOSE 100 mg/dL (70-99); UREA NITROGEN, BLOOD 24 mg/dL (8-21)
[2022-10-20 08:37] VITALS: BP_SYST 145
[2022-10-20] MEDS: PANTOPRAZOLE SODIUM 40 MG/VIAL (PROTONIX) IVP SCH (10:28)
[2022-10-20] MEDS: ENOXAPARIN SODIUM 30 MG/0.3 ML SYRINGE SUBCUT SCH (10:29)
[2022-10-20 11:16] VITALS: BP_SYST 152
--- NOTE | 2022-10-20 13:24 | NUR ---
SENT PACKET TO [facility] 2 WEEKS. WAITING APPOVEAL
--- NOTE | 2022-10-20 14:33 | NUR ---
PATIENT WAS ACCEPTED [facility] SHE WILL BE IN ROOM 102B
--- NOTE | 2022-10-20 14:54 | NUR ---
PHYSICAL THERAPY CO-SIGN The Physical Therapy Progress Notes documented by Freight Flow Sales Leader have been reviewed. Reviewed/Co-Signed by: Pio Ramos Documentation Done by:NOREEN PENG Addendum: 10/20/22 at 1454 by Pio Ramos PT Amended: Links added.
[2022-10-20 16:17] VITALS: BP_SYST 141
[2022-10-20] MEDS ORDERED: BENZOCAINE/MENTHOL 1 EACH LOZENGE MM PRN (17:30)
--- NOTE | 2022-10-20 19:55 | NUR ---
Nutrition F/U Admitting Diagnosis Abdominal Pain Reviewed Pertinent Medical/Surgical Hx Medical Record Patient Medical History Comment: Per H&P, History of cerebral aneurysm clipped at age 37 on the right side, peptic ulcer disease in the past, especially at age 20, migraine headaches, stroke, age of 16, frequent pneumonias and bronchitis, gastroesophageal reflux disease, polyarthritis, chronic anemia and now with significant neutropenia. Per progress note (10/17/22), Dr. Wayne, COPD stable, s/p perforated bowel secondary to duodenal ulcer status post surgery doing well. G-tube has been removed, patient currently on clear liquid diet. Subjective Information: RD met w/ pt at bedside this evening. Pt is POD 6 s/p ex lap w/ narayan patch d/t abd pain/perforated duodenal ulcer. Pt had a hoarse voice but was able to communicate w/ simple answers. She reported some N this morning, which subsided. BM x1 today, bit of D reported. She stated she is eating little by little, and trying her best. She attested to appetite for solid foods as well. RD weighed pt w/ bedscale: 114# -- pt did not feel this was accurate and stated she is closer to 90#. Current Diet Order/Nutrition Support: Full liquid, Ensure Sx TID x2 days Patient/Significant Other Able To Verbalize Education Provided Not Indicated Pertinent Medications: Reviewed Pertinent Labs: H/H 10.2 L/30.2 L, Cl 110 H, CRE 0.41 L, Ca 8.2 L, ALB 1.9 L, Vit B12 >2000H Height (Feet) 4 feet Height (Inches) 11.00 inches Weight (Pounds) 86 pounds -- stable since 10/17 Patient Weight 39.009 kg Body Mass Index 17.37 kg/m2 Usual Weight 100 lbs %UBW 86 %IBW 88 [place]/Adjusted Body Weight IBW 98 lbs. +/- 10%; ABW 109 lbs. for geriatric maintenance Recent Weight Change Yes - Patient reports weight loss in the past couple of weeks Weight Status Underweight Gastrointestinal Symptoms Constipation Last BM October 12, 2022 Food Allergies per patient NKFA Usual Diet At Home Regular Skin Integrity Comment: Pedro score: 15 -- Sx wound noted to abd; L/R foot w/ scabs Current % PO 24% average x8 meal records Estimated Energy Expenditure (kcals/day) 2251-7790 kcals/day (30-32 kcals/kg of ABW 50 kg for geriatric maintenance/Sx healing) Estimated Protein Required (g/day) 50-75 gm/day (1.0-1.5 gm/kg of ABW 50 gm for geriatric maintenance/Sx healing) Estimated Fluid Required (l/day) 1.5-1.6 L/day (1 mL/kcal or per MD Rx) Problem/Etiology/Signs/Symptoms * Inadequate protein/energy intake r/t diet Rx AEB previously NPO, currently on clear liquid diet, inadequate PO intake x4 days. *Diet advanced * Altered nutrition-related lab values r/t current medical condition AEB labs Hgb 10L, Hct 30.1L, Cl 112H, Creat 0.49L, Ca 8.1L, Alb 1.9L. *Ongoing * Altered GI function r/t alteration in gastrointestinal tract function AEB limitation of PO intakes due to GI symptoms. *Improving Expected Outcomes/Goals * Advance diet as tolerated/per MD Rx within 1-3 days; PO intake to meet at least 75% of estimated nutrient needs without GI complications * Improved/stable nutrition-related lab values (ongoing) * Maintain skin integrity (ongoing/met) * Stabilize weight, no significant weight changes during hospital stay (ongoing) Dietitian Recommendations * Continue Full Liquid diet (ONS Ensure TID comes standard w/ current diet; ONS yields 1050 kcal/day) * Gil BID to promote wound healing * Consider advance diet as tolerated (Soft (low-fiber/bland) diet) Follow Up High Risk: F/U in 2-3 days
--- NOTE | 2022-10-20 19:55 | NUR ---
OPENING NOTE PT LYING IN BED AND ON BREATHING TREATMENT. A/OX3. BREATHING EVEN AND NONLABORED VIA NASAL CANNULAR 2L. LUNG SOUNDS DIMINISHED ON BILATERAL UPPER LOBES. NO S/S OF ACUTE DISTRESS. PT REPORTED CHRONIC BACK PAIN. SURGICAL INCISION WITH DEYVI ON MIDLINE ABD.SKIN IS INTACT. SAFETY CHECKS IN PLACE. CALL LIGHT IN REACH. CONTINUE TO MONITOR
--- NOTE | 2022-10-20 20:05 | NUR ---
Dietitian Recommendations * Continue Full Liquid diet (ONS Ensure TID comes standard w/ current diet; ONS yields 1050 kcal/day) * Gil BID to promote wound healing * Consider advance diet as tolerated (Soft (low-fiber/bland) diet) LP, MS, RD Please refer to Nutrition F/U for details.
[2022-10-20] MEDS: ALBUTEROL SULFATE 0.083% 2.5 MG/3 ML VIAL.NEB INH PRN (22:37)
[2022-10-20] MEDS: IPRATROPIUM BROM 0.5 MG/2.5 ML VIAL.NEB (ATROVENT) INH PRN (22:37)
--- NOTE | 2022-10-20 23:30 | NUR ---
COUGH MED PT REQUESTED COUGH AND PAIN MEDICATION. GIVEN ROBITUSSIN PRESCRIBED. INFORMED PT THAT SHE NEEDS TO WAIT 3HRS FOR NEXT AVAILABLE NEXT DOSE.
[2022-10-21 00:11] VITALS: BP_SYST 150
[2022-10-21] MEDS: IPRATROPIUM/ALBUTEROL SULFATE 3 ML AMPUL.NEB (DUONEB) INH SCH ×5 (01:30→20:09)
[2022-10-21 02:56] VITALS: BP_SYST 138
[2022-10-21] MEDS: traMADol HCL HCL 50 MG TABLET (ULTRAM) PO SCH (03:31)
[2022-10-21] MEDS: ALBUTEROL SULFATE 0.083% 2.5 MG/3 ML VIAL.NEB INH PRN (03:44)
[2022-10-21] MEDS: IPRATROPIUM BROM 0.5 MG/2.5 ML VIAL.NEB (ATROVENT) INH PRN (03:44)
[2022-10-21 05:08] LABS: BASOPHILS % (AUTO) 0.5 % (0.0-2.0); EOSINOPHILS # (AUTO) 0.1 K/uL (0.0-0.4); EOSINOPHILS % (AUTO) 1.1 % (0.0-4.0); HEMATOCRIT 25.3 % (36-48); HEMOGLOBIN 8.5 g/dL (12.0-16.0); LYMPHOCYTES # (AUTO) 0.5 K/uL (1.0-5.5); LYMPHOCYTES % (AUTO) 8.9 % (20.5-51.5); MEAN CORPUSCULAR HEMOGLOBIN 32 pg (27-31); MEAN CORPUSCULAR HGB CONC 34 % (32-36); MEAN CORPUSCULAR VOLUME 94 fL (79.0-98.0); MONOCYTES # (AUTO) 0.5 K/uL (0.0-1.0); MONOCYTES % (AUTO) 9.3 % (1.7-9.3); NEUTROPHILS # (AUTO) 4.2 K/uL (1.8-7.7); NEUTROPHILS % (AUTO) 80.2 % (40.0-70.0); PLATELET COUNT (AUTO) 302 K/uL (130-430); RED BLOOD CELL COUNT(AUTO) 2.71 MIL/uL (4.2-6.2); RED CELL DISTRIBUTION WIDTH 15.8 % (9.0-15.0); WHITE BLOOD COUNT (AUTO) 5.2 K/uL (4.8-10.8)
[2022-10-21 05:58] LABS: ANION GAP 5 (5-15); CALCIUM 7.9 mg/dL (8.4-11.0); CHLORIDE 105 mmol/L (98-107); CREATININE 0.37 mg/dL (0.55-1.30); GLUCOSE 97 mg/dL (70-99); UREA NITROGEN, BLOOD 18 mg/dL (8-21)
[2022-10-21] MEDS: BUDESONIDE 0.5 MG/2 ML AMPUL.NEB INH SCH ×3 (07:17→20:09)
--- NOTE | 2022-10-21 07:41 | NUR ---
CLOSING NOTE PT LYING IN BED AND EYES OPEN. BREATHING EVEN AND NONLABORED VIA NASAL CANNULAR 2L.. NO S/S OF ACUTE DISTRESS. SURGICAL INCISION ON ABD IS INTACT. SAFETY CHECKS IN PLACE. CALL LIGHT IN REACH. ENDORSED DAY SHIFT NURSE
[2022-10-21 09:04] VITALS: BP_SYST 138
[2022-10-21] MEDS: FERROUS SULFATE 325 MG TABLET.DR PO SCH ×2 (10:07→22:07)
[2022-10-21] MEDS: traMADol HCL HCL 50 MG TABLET (ULTRAM) PO PRN ×3 (10:07→22:09)
[2022-10-21] MEDS: ENOXAPARIN SODIUM 30 MG/0.3 ML SYRINGE SUBCUT SCH (10:07)
[2022-10-21] MEDS: PANTOPRAZOLE SODIUM 40 MG/VIAL (PROTONIX) IVP SCH (10:08)
[2022-10-21 11:18] VITALS: BP_SYST 133
--- NOTE | 2022-10-21 15:13 | NUR ---
DR. BENTON MADE AWARE THAT PATIENT'S HAVING LOOSE STOOLS, DARK THAT SMELLS BLOOD. ALSO, MD'S AWARE OF THE H/H GOING DOWN. ORDER RECEIVED TO COLLECT STOOL FOR OB, ANTI -ACID MED, AND TYPE AND SCREEN. PATIENT AND DAUGHTER, JEFF UPDATED ON NEW MEDICATION AND PLAN OF CARE. PATIENT ENDORSED TO MARK ANTHONY FOR CONTINUITY OF CARE.
--- NOTE | 2022-10-21 15:15 | NUR ---
Transfer Nurse Notes: Patient laying in bed. A/O x 4, patient speaks Icelandic. Patient breathing even on room air. No pain, mild distress, no SOB. Patient is on a clear liquid diet, RFA 20G. Bed is locked in lowest position. Call light within reach, all needs met, will continue with plan of care. Report given by Khloe.
[2022-10-21 16:01] VITALS: BP_SYST 132
--- NOTE | 2022-10-21 16:30 | NUR ---
Late Noon Nurse Notes: Patient laying in bed. No pain, no distress, no SOB. Bed is locked in lowest position. Call light within reach, all needs met, will continue with plan of care.
[2022-10-21] MEDS: SUCRALFATE 1 GM TABLET PO SCH (18:04)
--- NOTE | 2022-10-21 18:28 | NUR ---
Spirometer Nurse Notes: Reminded patient of importance of using the spirometer every hour and encouraged patient to turn, deep breath and cough.
--- NOTE | 2022-10-21 18:45 | NUR ---
Closing Nurse Notes: Patient stable, A/O x4, Turkish speaking. Patient breathing even and unlabored on 2L nasal cannula. No pain, no distress, no SOB. Bed is locked in lowest position. Patient's occult stool tested positive, awaiting urine results. Call light within reach, all needs met, will endorse to shift mechanic nurse.
--- NOTE | 2022-10-21 19:36 | NUR ---
Stat CBC Order Nurse Notes: Dr. Sheth called and ordered a CBC stat for patient. Dr. Sheth wants a return call with results to
[2022-10-21 20:00] VITALS: BP_SYST 116
[2022-10-21 21:10] LABS: HEMATOCRIT 22.2 % (36-48); HEMOGLOBIN 7.7 g/dL (12.0-16.0); MEAN CORPUSCULAR HEMOGLOBIN 32 pg (27-31); MEAN CORPUSCULAR HGB CONC 35 % (32-36); MEAN CORPUSCULAR VOLUME 93 fL (79.0-98.0); PLATELET COUNT (AUTO) 352 K/uL (130-430); RED BLOOD CELL COUNT(AUTO) 2.39 MIL/uL (4.2-6.2); RED CELL DISTRIBUTION WIDTH 15.4 % (9.0-15.0); WHITE BLOOD COUNT (AUTO) 6.2 K/uL (4.8-10.8)
[2022-10-21 21:24] LABS: BAND % (MANUAL) 11 % (0-6); LYMPHOCYTES % (MANUAL) 10 % (20-46); MONOCYTES % (MANUAL) 11 % (0-11)
[2022-10-21 21:49] LABS: BASOPHILS % (MANUAL) 0 % (0-2); EOSINOPHILS % (MANUAL) 0 % (0-7)
[2022-10-21] MEDS: PANTOPRAZOLE SODIUM 40 MG TAB PO SCH (22:38)
--- NOTE | 2022-10-21 23:21 | NUR ---
OPENING NOTES: Patient received from AM shift nurse during shift change. Patient is AAA&Ox4 able to make needs with family at beside and call light within reach. Chest rise is even and unlabored on 2L via NC but was noted to be receiving a breathing TX. Patient has ABD SUGERY ON 10/14 and surgical site is JM clean dry with noted sutures no redness or discharge noted. New orders were placed for stat CBC and to call Dr. Sheth when results were in. Will resume care and continue to monitor. 2229: Patient has been assessed as indicated, patient care has been provided and patient has received scheduled 2100 medications and requested PRN. CBC labs results were in and spoke to Dr. Cormier. Received new TO orders for. 2 UNITS of PRBC, PT,PTT, Protonix to be switched from IV to PO starting tonight, hold Lovenox, and to follow up with GI consult in the morning. Orders noted and carried out. 2300: Consent was obtained for Blood. Consent and Blood requisitions were completed and take to BLOOD BANK. Patient is in bed resting with no noted s/s of distress at this time and CASH ROOM CLERK is providing care.
[2022-10-22] MEDS: SUCRALFATE 1 GM TABLET PO SCH ×4 (00:15→17:41)
[2022-10-22 00:16] VITALS: BP_SYST 142
[2022-10-22] MEDS: IPRATROPIUM/ALBUTEROL SULFATE 3 ML AMPUL.NEB (DUONEB) INH SCH ×3 (00:32→19:58)
[2022-10-22] MEDS: [UNRECOGNIZED DRUG - OTHER] MM PRN (00:38)
--- NOTE | 2022-10-22 00:45 | NUR ---
BLOOD TRANSFUSION: 1 of 2 units PRBC started at 0010 as ordered. V/S were assessed and were noted WNL. 0015: IV site noted to be leaking blood transfusion was stopped and new IV started on different site. 0025: BLOOD was restarted as ordered. 0045: V/S were reassessed as indicated after 15 minutes. V/S WNL. Infusion rate was increased to 150ml/hr. Patient is tolerating infusion well. No s/s of distress is noted. RT at bedside administrating scheduled breathing TX. Will continue to monitor.
--- NOTE | 2022-10-22 02:53 | NUR ---
BLOOD TRANSFUSION: 1 OUT 2 UNITS OF PRBC completed ended at 0245. V/S were assessed and noted WNL. Patient tolerated infusion well. 0250: 2 OUT 2 unit of PRBC started at 0250. Will continue to monitor.
--- NOTE | 2022-10-22 03:15 | NUR ---
CONSULTATION PAGED REASON FOR CONSULTATION: BLOOD IN STOOL WAS CONSULT CALLED? Y PERSON WHO WAS NOTIFIED: LARRY CONSULTING PHYSICIAN: DR ANGELA PETER SYSTEM OPERATOR INDUSTRIAL WASTE TREATMENT TECHNICIAN SPECIALTY: GI INDUSTRIAL WASTE TREATMENT TECHNICIAN PHONE NUMBER: [phone] REQUESTING PHYSICIAN: NOLA BENTON
--- NOTE | 2022-10-22 05:57 | NUR ---
BLOOD TRANSFUSION: 2 UNITS OF PRBC completed 2/2 bag ended at 0545. Patient is now resting, V/S noted WNL, chest rise is even and unlabored on 2L via NC.
--- NOTE | 2022-10-22 07:30 | NUR ---
MORNING ROUNDS: PATIENT AWAKE,LYING ON THE BED. BLOOD TRANSFUSION JUST FINISHED. VITAL SIGNS TAKEN,AFEBRILE. STABLE. CALL LIGHT WITH IN REACH. BED LOCKED AT LOWEST POSITION. CONDITION GUARDED.
[2022-10-22 07:50] LABS: BASOPHILS % (AUTO) 0.5 % (0.0-2.0); EOSINOPHILS % (AUTO) 0.7 % (0.0-4.0); HEMOGLOBIN 11.9 g/dL (12.0-16.0); LYMPHOCYTES # (AUTO) 0.5 K/uL (1.0-5.5); LYMPHOCYTES % (AUTO) 8.5 % (20.5-51.5); MEAN CORPUSCULAR HEMOGLOBIN 31 pg (27-31); MEAN CORPUSCULAR HGB CONC 34 % (32-36); MONOCYTES # (AUTO) 0.5 K/uL (0.0-1.0); MONOCYTES % (AUTO) 9.6 % (1.7-9.3); NEUTROPHILS # (AUTO) 4.6 K/uL (1.8-7.7); NEUTROPHILS % (AUTO) 80.7 % (40.0-70.0); PLATELET COUNT (AUTO) 308 K/uL (130-430); RED CELL DISTRIBUTION WIDTH 15.2 % (9.0-15.0); WHITE BLOOD COUNT (AUTO) 5.6 K/uL (4.8-10.8)
[2022-10-22 07:55] LABS: PROTHROMBIN TIME 10.8 SECS (9.5-12.5)
[2022-10-22 07:59] LABS: ALANINE AMINOTRANSFERASE 11 U/L (12-78); ALBUMIN 1.6 g/dL (3.4-4.8); ANION GAP 4 (5-15); ASPARTATE AMINOTRANSFERASE 17 U/L (10-37); CHLORIDE 103 mmol/L (98-107); CREATININE 0.37 mg/dL (0.55-1.30); GLUCOSE 96 mg/dL (70-99); TOTAL BILIRUBIN 0.6 mg/dL (0.0-1.0); UREA NITROGEN, BLOOD 17 mg/dL (8-21)
[2022-10-22 08:00] VITALS: BP_SYST 147
[2022-10-22 08:11] LABS: MEAN CORPUSCULAR VOLUME 90 fL (79.0-98.0)
[2022-10-22] MEDS: PANTOPRAZOLE SODIUM 40 MG TAB PO SCH ×2 (09:34→20:43)
[2022-10-22] MEDS: FERROUS SULFATE 325 MG TABLET.DR PO SCH ×2 (09:35→20:43)
[2022-10-22] MEDS: guaiFENesin 200 MG/CODEINE 20 MG/ 10 ML UDC PO PRN ×2 (09:38→14:34)
[2022-10-22 11:49] VITALS: BP_SYST 146
--- NOTE | 2022-10-22 12:08 | NUR ---
CONSULT ENT HOARSENESS OF THE VOICE DEVON DANIELS [phone] S/W SOFIE BANKS
[2022-10-22] MEDS: NYSTATIN 500,000 UNITS/5 ML UDC PO SCH ×2 (12:19→17:41)
--- NOTE | 2022-10-22 12:30 | NUR ---
ENT CALLED BACK: SPOKE WITH DR PEACE,HE WILL NOT BE ABLE TO SEE PT THIS WEEK,HE WILL BE [place] OF TOWN,HE CAN SEE PATIENT OUT PATIENT.
[2022-10-22] MEDS: traMADol HCL HCL 50 MG TABLET (ULTRAM) PO PRN ×2 (13:04→19:51)
--- NOTE | 2022-10-22 15:58 | NUR ---
CM: DC Barriers: pt received PRBC this am. sp Exlap with patch for perforated Duodenal ulcer. GI consult for positive stool OB, non active bleeding at this time. Dr Sheth hold transfer to [facility]. Pt has bed ready once stable for discharge. LYNN Lin and RN Leesa aware.
[2022-10-22 18:01] VITALS: BP_SYST 148
--- NOTE | 2022-10-22 18:14 | NUR ---
END OF SHIFT: NOT IN ANY RESPIRATORY DISTRESS. PATIENT HAVING DINNER. CALL LIGHT WITH IN REACH. BED LOCKED AT LOWEST POSITION. NO ACTIVE BLEEDING NOTED THIS TIME.
[2022-10-22 19:43] VITALS: BP_SYST 149
[2022-10-22] MEDS: ONDANSETRON HCL 4 MG/2 ML VIAL IVP PRN (20:12)
[2022-10-22] MEDS: BUDESONIDE 0.5 MG/2 ML AMPUL.NEB INH SCH (20:21)
--- NOTE | 2022-10-22 20:55 | NUR ---
OPENING NOTE PT LYING IN BED AND EYES OPEN. BREATHING EVEN AND NONLABORED VIS NASAL CANNULAR O2 2L. DENIED PAIN. PT WEARING IPC. NO ACUTE S/S OF DISTRESS OR PAIN. SAFETY CHECKS IN PLACE. CALL LIGHT IN REACH. CONTINUE TO MONITOR
--- NOTE | 2022-10-22 23:45 | NUR ---
BLEEDING PT ACTIVELY BLEEDING FROM ANUS. BLOOD IS BRIGHT RED. PT REPORTED ABD PAIN 6/10. VITAL IS 99.6F, BP 142/83, HR 111, O2 SAT 99%. CONTINUE TO MONITOR
[2022-10-23] VITALS (12 sets, daily range): BP systolic 101–145
[2022-10-23] MEDS: NYSTATIN 500,000 UNITS/5 ML UDC PO SCH ×5 (00:23→23:23)
[2022-10-23] MEDS: SUCRALFATE 1 GM TABLET PO SCH ×5 (00:23→23:23)
--- NOTE | 2022-10-23 00:40 | NUR ---
BLOODY STOOL PT HAS 3 TIMES BLOOD STOOL WITHIN AN HOUR. BRIGHT RED COLOR. THE AMOUNT GETTING SMALLER.
--- NOTE | 2022-10-23 00:58 | NUR ---
CALLED DR BENTON. NOTIFIED PT HAS BLOODY STOOL [address] ORDERED STAT CBC. DR DOESN'T WANT PT NPO. CONTINUE TO MONITOR
[2022-10-23] MEDS: IPRATROPIUM/ALBUTEROL SULFATE 3 ML AMPUL.NEB (DUONEB) INH SCH ×4 (01:09→19:20)
[2022-10-23 02:00] LABS: BASOPHILS % (AUTO) 0.3 % (0.0-2.0); EOSINOPHILS % (AUTO) 0.6 % (0.0-4.0); HEMATOCRIT 30.5 % (36-48); HEMOGLOBIN 10.5 g/dL (12.0-16.0); LYMPHOCYTES # (AUTO) 0.5 K/uL (1.0-5.5); LYMPHOCYTES % (AUTO) 7.3 % (20.5-51.5); MEAN CORPUSCULAR HEMOGLOBIN 31 pg (27-31); MEAN CORPUSCULAR HGB CONC 35 % (32-36); MEAN CORPUSCULAR VOLUME 88 fL (79.0-98.0); MONOCYTES # (AUTO) 0.2 K/uL (0.0-1.0); MONOCYTES % (AUTO) 3.6 % (1.7-9.3); NEUTROPHILS # (AUTO) 5.8 K/uL (1.8-7.7); NEUTROPHILS % (AUTO) 88.2 % (40.0-70.0); PLATELET COUNT (AUTO) 353 K/uL (130-430); RED BLOOD CELL COUNT(AUTO) 3.45 MIL/uL (4.2-6.2); RED CELL DISTRIBUTION WIDTH 15.1 % (9.0-15.0); WHITE BLOOD COUNT (AUTO) 6.6 K/uL (4.8-10.8)
--- NOTE | 2022-10-23 04:43 | NUR ---
ROUNDING NOTE PT LYING IN BED AND EYES CLOSED. BREATHING EVEN VIA NASAL CANNULAR O2 2L. NO BLOOD STOOL AT THIS MOMENT. BP 140/62/ HR 107. SAFETY CHECKS IN PLACE. CALL LIGHT IN REACH. CONTINUE TO MONITOR
[2022-10-23] MEDS ORDERED: POTASSIUM CHLORIDE 10 MEQ in NACL 0.9% 1,000 ML IV SCH (05:00)
--- NOTE | 2022-10-23 05:22 | NUR ---
BLEEDING PT LYING IN BED AND EYES OPEN. FOUND BLOOD FROM ANUS. 5 TIMES SINCE 0000. A/OX2. BP 136/68. SAFETY CHECKS IN PLACE. CALL LIGHT IN REACH. CONTINUE TO MONITOR
[2022-10-23 05:39] LABS: BASOPHILS % (AUTO) 0.4 % (0.0-2.0); EOSINOPHILS % (AUTO) 0.7 % (0.0-4.0); HEMATOCRIT 29.6 % (36-48); HEMOGLOBIN 10.2 g/dL (12.0-16.0); LYMPHOCYTES # (AUTO) 0.5 K/uL (1.0-5.5); LYMPHOCYTES % (AUTO) 7.8 % (20.5-51.5); MEAN CORPUSCULAR HEMOGLOBIN 31 pg (27-31); MEAN CORPUSCULAR HGB CONC 35 % (32-36); MEAN CORPUSCULAR VOLUME 89 fL (79.0-98.0); MONOCYTES # (AUTO) 0.5 K/uL (0.0-1.0); MONOCYTES % (AUTO) 6.9 % (1.7-9.3); NEUTROPHILS # (AUTO) 5.8 K/uL (1.8-7.7); NEUTROPHILS % (AUTO) 84.2 % (40.0-70.0); PLATELET COUNT (AUTO) 352 K/uL (130-430); RED BLOOD CELL COUNT(AUTO) 3.33 MIL/uL (4.2-6.2); RED CELL DISTRIBUTION WIDTH 15.6 % (9.0-15.0); WHITE BLOOD COUNT (AUTO) 6.9 K/uL (4.8-10.8)
[2022-10-23 05:58] LABS: ANION GAP 3 (5-15); CALCIUM 7.5 mg/dL (8.4-11.0); CHLORIDE 102 mmol/L (98-107); CREATININE 0.35 mg/dL (0.55-1.30); GLUCOSE 85 mg/dL (70-99); UREA NITROGEN, BLOOD 16 mg/dL (8-21)
[2022-10-23] MEDS ORDERED: KCL 10 mEq in 50 mL (PREMIX) 50 ML IV ONE (06:18)
[2022-10-23] MEDS: BUDESONIDE 0.5 MG/2 ML AMPUL.NEB INH SCH ×2 (07:13→19:21)
--- NOTE | 2022-10-23 07:30 | NUR ---
MORNING ROUNDS: PATIENT ON SEMI ALMONTE'S POSITION. ON O2 2L/NC,WITH GOOD SATURATION.IV AT LEFT UPPER ARM INTACT. MID ABDOMEN WITH DEYVI ON,INTACT.NO DRAINAGE/ODOR. OPEN TO AIR.CALL LIGHT WITH IN REACH. BED LOCKED AT LOWEST POSITION. CONTINUE TO MONITOR.
--- NOTE | 2022-10-23 07:31 | NUR ---
CLOSING NOTE PT LYING IN BED AND EYES CLOSED. BREATHING EVEN AND NONLABORED VIS NASAL CANNULAR O2 2L. PT HAD 6 TIMES BLOODY STOOL DURING R D ENGINEER. SAFETY CHECKS IN PLACE. CALL LIGHT IN REACH. ENDORSED TO DAY SHIFT NURSE
--- NOTE | 2022-10-23 07:32 | NUR ---
SURGEON ROUNDS: PER DR BENTON PATIENT NOT STABLE TO BE DISCHARGE. PATIENT HAD A LARGE BLOODY STOOL LAST NIGHT.
[2022-10-23] MEDS: PANTOPRAZOLE SODIUM 40 MG TAB PO SCH ×2 (08:31→20:36)
[2022-10-23] MEDS: FERROUS SULFATE 325 MG TABLET.DR PO SCH ×2 (08:31→20:36)
[2022-10-23] MEDS: POTASSIUM CHLORIDE 10 MEQ in NACL 0.9% 1,000 ML IV SCH (08:32)
--- NOTE | 2022-10-23 08:32 | NUR ---
IV FLUIDS: IV FLUIDS WITH KCL 10MEQ STARTED ORDERED.
[2022-10-23] MEDS: traMADol HCL HCL 50 MG TABLET (ULTRAM) PO PRN ×3 (08:42→20:39)
--- NOTE | 2022-10-23 09:37 | NUR ---
GI ROUNDS: PATIENT SEEN BY DR MILLER,NEEDS TO BE CLEARED BY SURGEON.POSSIBLE EGD/COLONOSCOPY ON MONDAY OR MONDAY.
--- NOTE | 2022-10-23 09:47 | NUR ---
Nutrition F/U RD reviewed pts current EMR including diet hx, physician notes, nursing notes, pertinent labs/meds/procedures, care trends and care activity. Medical History Comment: Per H&P, History of cerebral aneurysm clipped at age 37 on the right side, peptic ulcer disease in the past, especially at age 20, migraine headaches, stroke, age of 16, frequent pneumonias and bronchitis, gastroesophageal reflux disease, polyarthritis, chronic anemia and now with significant neutropenia. Per progress note (10/17/22), Dr. Wayne, COPD stable, s/p perforated bowel secondary to duodenal ulcer status post surgery doing well. G-tube has been removed, patient currently on clear liquid diet. 10/23: Pt had blood in stool x 3 (bright red color). does not want pt NPO at this time. Subjective Information: RD met w/ pt at bedside this morning. She attested that her appetite is growing. Pt requested a hamgburger; RD discussed that she is on FLD currently but will request that we can advance diet soon. Pt understands. Pt reports GI symptoms: N/D. Pt denies any FA. RD checked bedscale [id number] likely inaccurate d/t linens and equipment on bed. RN said that there are no plans to advance diet d/t recent GI issues. Per EMR review: abd soft, non-distended w/ active bowel sounds; Pedro 15 w/ incision on abd; LABS: Na 135 L, Cre 0.35 L, Ca 7.5 L. Pt is not meeting nutritional needs at this time. Current Diet Order/Nutrition Support Full liquid, Ensure surgery TID x 5 days; Gil BID x 3 days % PO intake Negligible avg of 21% x 9 meal records Last BM 10/22 x 2 Estimated Energy Expenditure (kcals/day) 5737-5015 kcals/day (30-32 kcals/kg of ABW 50 kg for geriatric maintenance/Sx healing) Estimated Protein Required (g/day) 50-75 gm/day (1.0-1.5 gm/kg of ABW 50 gm for geriatric maintenance/Sx healing) Estimated Fluid Required (l/day) 1.5-1.6 L/day (1 mL/kcal or per MD Rx) Problem/Etiology/Signs/Symptoms * Inadequate protein/energy intake r/t diet Rx AEB previously NPO, currently on clear liquid diet, inadequate PO intake x4 days. *Diet advanced * Altered nutrition-related lab values r/t current medical condition AEB labs Hgb 10L, Hct 30.1L, Cl 112H, Creat 0.49L, Ca 8.1L, Alb 1.9L. *Ongoing * Altered GI function r/t alteration in gastrointestinal tract function AEB limitation of PO intakes due to GI symptoms. *Improving Expected Outcomes/Goals * Advance diet as tolerated/per MD Rx within 1-3 days; PO intake to meet at least 75% of estimated nutrient needs without GI complications * Improved/stable nutrition-related lab values (ongoing) * Maintain skin integrity (ongoing/met) * Stabilize weight, no significant weight changes during hospital stay (ongoing) Dietitian Recommendations * Continue Full Liquid diet (ONS Ensure TID comes standard w/ current diet; ONS yields 1050 kcal/day) * Continue Gil BID to promote wound healing * Consider advance diet as tolerated (Soft (low-fiber/bland) diet) Follow up *High risk : f/u in 2-3 days ISAIAH, MPH, RD
--- NOTE | 2022-10-23 09:53 | NUR ---
Dietitian Recommendations * Continue Full Liquid diet (ONS Ensure TID comes standard w/ current diet; ONS yields 1050 kcal/day) * Continue Gil BID to promote wound healing * Consider advance diet as tolerated (Soft (low-fiber/bland) diet) GS, MPH, RD Please refer to Nutrition F/U for further details. Thanks!
--- NOTE | 2022-10-23 13:07 | NUR ---
PAIN MEDS: DUE PO ULTRAM GIVEN PER REQUEST. NO PROBLEM.
[2022-10-23 15:38] LABS: EOSINOPHILS # (AUTO) 0.1 K/uL (0.0-0.4); HEMATOCRIT 28.6 % (36-48); HEMOGLOBIN 9.7 g/dL (12.0-16.0); LYMPHOCYTES # (AUTO) 0.7 K/uL (1.0-5.5); NEUTROPHILS % (AUTO) 75.8 % (40.0-70.0)
[2022-10-23 15:41] LABS: BASOPHILS % (AUTO) 0.5 % (0.0-2.0); EOSINOPHILS % (AUTO) 0.9 % (0.0-4.0); LYMPHOCYTES % (AUTO) 11.1 % (20.5-51.5); MEAN CORPUSCULAR HEMOGLOBIN 31 pg (27-31); MEAN CORPUSCULAR HGB CONC 34 % (32-36); MEAN CORPUSCULAR VOLUME 91 fL (79.0-98.0); MONOCYTES # (AUTO) 0.8 K/uL (0.0-1.0); MONOCYTES % (AUTO) 11.7 % (1.7-9.3); PLATELET COUNT (AUTO) 343 K/uL (130-430); RED BLOOD CELL COUNT(AUTO) 3.15 MIL/uL (4.2-6.2); RED CELL DISTRIBUTION WIDTH 15.3 % (9.0-15.0); WHITE BLOOD COUNT (AUTO) 6.6 K/uL (4.8-10.8)
--- NOTE | 2022-10-23 18:30 | NUR ---
EVENING ROUNDS: DAUGHTER AT THE BEDSIDE. NO NEEDS THIS TIME. STABLE.
--- NOTE | 2022-10-23 21:00 | NUR ---
Tolerating po well no nausea no abdominal pain , on continuos IV hydration , discussed plan of care , medication , hygiene verbalized understanding., monitoring for symptoms of bleeding.
--- NOTE | 2022-10-24 00:09 | NUR ---
PATIENT RESTING: Patient resting quietly. No acute distress noted. Vital signs within normal range.
[2022-10-24 00:19] VITALS: BP_SYST 133
[2022-10-24] MEDS: IPRATROPIUM/ALBUTEROL SULFATE 3 ML AMPUL.NEB (DUONEB) INH SCH ×4 (01:41→20:04)
[2022-10-24] MEDS: POTASSIUM CHLORIDE 10 MEQ in NACL 0.9% 1,000 ML IV SCH (05:05)
[2022-10-24] MEDS: NYSTATIN 500,000 UNITS/5 ML UDC PO SCH ×3 (05:05→17:30)
[2022-10-24] MEDS: SUCRALFATE 1 GM TABLET PO SCH ×3 (05:05→17:30)
[2022-10-24] MEDS: traMADol HCL HCL 50 MG TABLET (ULTRAM) PO PRN ×2 (05:05→13:52)
[2022-10-24 05:08] LABS: BASOPHILS % (AUTO) 0.6 % (0.0-2.0); EOSINOPHILS # (AUTO) 0.1 K/uL (0.0-0.4); EOSINOPHILS % (AUTO) 0.9 % (0.0-4.0); HEMATOCRIT 27.3 % (36-48); HEMOGLOBIN 9.2 g/dL (12.0-16.0); LYMPHOCYTES # (AUTO) 0.5 K/uL (1.0-5.5); LYMPHOCYTES % (AUTO) 9.2 % (20.5-51.5); MEAN CORPUSCULAR HEMOGLOBIN 31 pg (27-31); MEAN CORPUSCULAR HGB CONC 34 % (32-36); MEAN CORPUSCULAR VOLUME 91 fL (79.0-98.0); MONOCYTES # (AUTO) 0.6 K/uL (0.0-1.0); MONOCYTES % (AUTO) 10.1 % (1.7-9.3); NEUTROPHILS # (AUTO) 4.4 K/uL (1.8-7.7); NEUTROPHILS % (AUTO) 79.2 % (40.0-70.0); PLATELET COUNT (AUTO) 407 K/uL (130-430); WHITE BLOOD COUNT (AUTO) 5.6 K/uL (4.8-10.8)
[2022-10-24 05:29] LABS: ALANINE AMINOTRANSFERASE 13 U/L (12-78); ALBUMIN 1.3 g/dL (3.4-4.8); ANION GAP 5 (5-15); ASPARTATE AMINOTRANSFERASE 23 U/L (10-37); CALCIUM 7.3 mg/dL (8.4-11.0); CHLORIDE 97 mmol/L (98-107); CREATININE 0.35 mg/dL (0.55-1.30); GLUCOSE 77 mg/dL (70-99); TOTAL BILIRUBIN 0.3 mg/dL (0.0-1.0); UREA NITROGEN, BLOOD 17 mg/dL (8-21)
--- NOTE | 2022-10-24 06:52 | NUR ---
No significant changes the whole night , no bowel movement , tolerating po well , needs attended.
[2022-10-24] MEDS: BUDESONIDE 0.5 MG/2 ML AMPUL.NEB INH SCH ×2 (07:14→20:04)
[2022-10-24] MEDS: FERROUS SULFATE 325 MG TABLET.DR PO SCH ×2 (07:59→22:16)
[2022-10-24] MEDS: PANTOPRAZOLE SODIUM 40 MG TAB PO SCH ×2 (07:59→22:16)
[2022-10-24 08:00] VITALS: BP_SYST 139
--- NOTE | 2022-10-24 08:26 | NUR ---
PHYSICAL THERAPY CO-SIGN The Physical Therapy Progress Notes documented by Dog Show Judge have been reviewed. Reviewed/Co-Signed by: Pio Ramos Documentation Done by:NOREEN PENG Addendum: 10/24/22 at 6667 by Pio Ramos PT Amended: Links added.
[2022-10-24] MEDS ORDERED: POTASSIUM CHLORIDE 10 MEQ in D5NS 1,000 ML IV SCH (08:45)
[2022-10-24] MEDS: MORPHINE 4 MG INJ. 4 MG/ML VIAL IVP PRN ×2 (09:21→18:25)
[2022-10-24 12:15] VITALS: BP_SYST 131
[2022-10-24] MEDS: [UNRECOGNIZED DRUG - OTHER] MM PRN (12:37)
--- NOTE | 2022-10-24 13:05 | NUR ---
PHYSICAL THERAPY CO-SIGN The Physical Therapy Progress Notes documented by Funeral Home Location Manager have been reviewed. Reviewed/Co-Signed by: Pio Ramos Documentation Done by:NOREEN PENG Addendum: 10/24/22 at 1305 by Pio Ramos PT Amended: Links added.
[2022-10-24] MEDS: ACETYLCYSTEINE 20% 4 ML VIAL (RT) INH SCH ×2 (14:05→20:04)
[2022-10-24 15:39] LABS: HEMATOCRIT 26.6 % (36-48); HEMOGLOBIN 9.1 g/dL (12.0-16.0); MEAN CORPUSCULAR HEMOGLOBIN 31 pg (27-31); MEAN CORPUSCULAR HGB CONC 34 % (32-36); MEAN CORPUSCULAR VOLUME 91 fL (79.0-98.0); PLATELET COUNT (AUTO) 433 K/uL (130-430); RED BLOOD CELL COUNT(AUTO) 2.94 MIL/uL (4.2-6.2); WHITE BLOOD COUNT (AUTO) 5.5 K/uL (4.8-10.8)
[2022-10-24 16:00] VITALS: BP_SYST 133
[2022-10-24 16:02] LABS: BAND % (MANUAL) 8 % (0-6); BASOPHILS % (MANUAL) 0 % (0-2); EOSINOPHILS % (MANUAL) 0 % (0-7); LYMPHOCYTES % (MANUAL) 8 % (20-46); MONOCYTES % (MANUAL) 5 % (0-11)
--- NOTE | 2022-10-24 18:29 | NUR ---
Pt c/o 03/07 pain. Alternated between Ultram and Morphine, which relives pain to tolerable level. No blood noted in stools today.
[2022-10-24 19:00] VITALS: BP_SYST 106
[2022-10-24 20:00] VITALS: BP_SYST 106
[2022-10-25 00:20] VITALS: BP_SYST 135
--- NOTE | 2022-10-25 00:30 | NUR ---
RECEIVED PT ATT, AOX4,EVEN AND UNLABORED BREATHING, RFA SALINE LOCK AND PATENT, WILL CONTINUE WITH POC
[2022-10-25] MEDS: IPRATROPIUM/ALBUTEROL SULFATE 3 ML AMPUL.NEB (DUONEB) INH SCH ×4 (01:02→18:51)
[2022-10-25] MEDS: ACETYLCYSTEINE 20% 4 ML VIAL (RT) INH SCH ×4 (01:04→18:50)
[2022-10-25] MEDS: SUCRALFATE 1 GM TABLET PO SCH ×5 (01:27→23:25)
[2022-10-25] MEDS: NYSTATIN 500,000 UNITS/5 ML UDC PO SCH ×4 (01:27→17:08)
[2022-10-25] MEDS: MORPHINE 4 MG INJ. 4 MG/ML VIAL IVP PRN ×3 (03:02→23:26)
[2022-10-25 04:08] LABS: BASOPHILS % (AUTO) 0.6 % (0.0-2.0); EOSINOPHILS # (AUTO) 0.1 K/uL (0.0-0.4); HEMATOCRIT 26.8 % (36-48); HEMOGLOBIN 9.1 g/dL (12.0-16.0); LYMPHOCYTES # (AUTO) 0.5 K/uL (1.0-5.5); MEAN CORPUSCULAR HEMOGLOBIN 31 pg (27-31); MEAN CORPUSCULAR HGB CONC 34 % (32-36); MEAN CORPUSCULAR VOLUME 90 fL (79.0-98.0); MONOCYTES # (AUTO) 0.4 K/uL (0.0-1.0); MONOCYTES % (AUTO) 7.9 % (1.7-9.3); NEUTROPHILS # (AUTO) 4.7 K/uL (1.8-7.7); NEUTROPHILS % (AUTO) 82.5 % (40.0-70.0); PLATELET COUNT (AUTO) 480 K/uL (130-430); RED BLOOD CELL COUNT(AUTO) 2.97 MIL/uL (4.2-6.2); RED CELL DISTRIBUTION WIDTH 15.1 % (9.0-15.0); WHITE BLOOD COUNT (AUTO) 5.7 K/uL (4.8-10.8)
[2022-10-25 04:20] LABS: ANION GAP 4 (5-15); CALCIUM 7.2 mg/dL (8.4-11.0); CHLORIDE 97 mmol/L (98-107); CREATININE 0.34 mg/dL (0.55-1.30); GLUCOSE 93 mg/dL (70-99); UREA NITROGEN, BLOOD 15 mg/dL (8-21)
--- NOTE | 2022-10-25 06:51 | NUR ---
PT ATT, AOX4, EVEN AND UNLABORED BREATHING, DENIED SOB, CP,OR ANY PAIN ATT, NO CHANGES DURING SHIFT, TOLERATING FULL LIQ DIET, BEDREST, VOIDING, RFA SALINE LOCK AND PATENT, WILL ENDORSE TO AM SHIFT
[2022-10-25] MEDS: traMADol HCL HCL 50 MG TABLET (ULTRAM) PO PRN ×2 (07:28→20:43)
[2022-10-25] MEDS: BUDESONIDE 0.5 MG/2 ML AMPUL.NEB INH SCH ×2 (07:45→18:50)
[2022-10-25 08:00] VITALS: BP_SYST 133
[2022-10-25] MEDS: FERROUS SULFATE 325 MG TABLET.DR PO SCH ×2 (08:31→20:41)
[2022-10-25] MEDS: PANTOPRAZOLE SODIUM 40 MG TAB PO SCH ×2 (08:31→20:41)
[2022-10-25 11:37] VITALS: BP_SYST 112
--- NOTE | 2022-10-25 11:58 | NUR ---
SPOKE WITH DR BENTON, ASKED THAT HOSPITALIST BE CONSULTED. PER DR BENTON, A MARGIEIWAL FOR CONSULT. DR STAHL ON THE FLOOR, INFORMED OF CONSULT
[2022-10-25] MEDS ORDERED: CEFEPIME 1 GM in D5W 50 ML IV ONE (14:00)
--- NOTE | 2022-10-25 14:27 | NUR ---
PHYSICAL THERAPY CO-SIGN The Physical Therapy Progress Notes documented by Certified Cytotechnologist have been reviewed. Reviewed/Co-Signed by: Pio Ramos Documentation Done by:NOREEN PENG Addendum: 10/25/22 at 1427 by Pio Ramos PT Amended: Links added.
--- NOTE | 2022-10-25 17:17 | NUR ---
ST EVALUATION COMPLETED. ST TX NOT INDICATED AT THIS TIME. RECOMMEND CONTINUE WITH [facility] SOFT DIET WITH THIN LIQUIDS. DISTANT SUPERVISION AND FULL ASPIRATION PRECAUTIONS
--- NOTE | 2022-10-25 17:50 | NUR ---
Started pt on Seroquel today. Pt has been calm and not kicking today. Pt talks to self. Able to swallow meds with water and no problems.
--- NOTE | 2022-10-25 17:50 | NUR ---
Found pt at 0700 without oxygen on and saturating in the 50%. Pt hyperventilated until in the 90s. Pt placed on 2L/NC and saturating in the mid 90s. Pt 87% at noon. On 5L/NC to maintain oxygen level in the mid 90s. Speech eval done today. Pt is eating very little with no appetite.
[2022-10-25 18:14] VITALS: BP_SYST 137
[2022-10-25 20:00] VITALS: BP_SYST 119
[2022-10-25] MEDS: CEFEPIME 1 GM in D5W 50 ML IV SCH (20:42)
[2022-10-25] MEDS ORDERED: ENOXAPARIN SODIUM 30 MG/0.3 ML SYRINGE SUBCUT SCH (21:00)
[2022-10-26] MEDS: ACETYLCYSTEINE 20% 4 ML VIAL (RT) INH SCH ×4 (00:40→19:16)
[2022-10-26] MEDS: IPRATROPIUM/ALBUTEROL SULFATE 3 ML AMPUL.NEB (DUONEB) INH SCH ×4 (00:40→19:16)
[2022-10-26 02:14] VITALS: BP_SYST 121
[2022-10-26] MEDS: SUCRALFATE 1 GM TABLET PO SCH ×3 (05:17→17:53)
[2022-10-26] MEDS: NYSTATIN 500,000 UNITS/5 ML UDC PO SCH ×4 (05:17→17:53)
[2022-10-26 05:52] LABS: BASOPHILS # (AUTO) 0.1 K/uL (0.0-0.2); BASOPHILS % (AUTO) 1.3 % (0.0-2.0); EOSINOPHILS # (AUTO) 0.1 K/uL (0.0-0.4); EOSINOPHILS % (AUTO) 0.8 % (0.0-4.0); HEMATOCRIT 23.7 % (36-48); LYMPHOCYTES # (AUTO) 0.6 K/uL (1.0-5.5); LYMPHOCYTES % (AUTO) 9.9 % (20.5-51.5); MEAN CORPUSCULAR HEMOGLOBIN 31 pg (27-31); MEAN CORPUSCULAR HGB CONC 34 % (32-36); MEAN CORPUSCULAR VOLUME 91 fL (79.0-98.0); MONOCYTES # (AUTO) 0.7 K/uL (0.0-1.0); MONOCYTES % (AUTO) 10.5 % (1.7-9.3); NEUTROPHILS # (AUTO) 4.9 K/uL (1.8-7.7); NEUTROPHILS % (AUTO) 77.5 % (40.0-70.0); PLATELET COUNT (AUTO) 505 K/uL (130-430); RED BLOOD CELL COUNT(AUTO) 2.61 MIL/uL (4.2-6.2); RED CELL DISTRIBUTION WIDTH 14.8 % (9.0-15.0); WHITE BLOOD COUNT (AUTO) 6.4 K/uL (4.8-10.8)
[2022-10-26 06:17] LABS: ANION GAP 3 (5-15); CALCIUM 7.4 mg/dL (8.4-11.0); CHLORIDE 97 mmol/L (98-107); GLUCOSE 87 mg/dL (70-99); UREA NITROGEN, BLOOD 23 mg/dL (8-21)
[2022-10-26] MEDS: BUDESONIDE 0.5 MG/2 ML AMPUL.NEB INH SCH ×2 (07:06→19:45)
--- NOTE | 2022-10-26 07:30 | NUR ---
Morning Rounds: Patient on breathing treatment during rounds. Call light with in reach.Safety measures rendered.Bed alarm on. Iv saline lock at right upper arm. Continue to monitor.Stable. Addendum: 10/26/22 at 0936 by Dolores Bran RN on o2 2l/nc,o2 saturation=94%-95%.
[2022-10-26 08:00] VITALS: BP_SYST 118
[2022-10-26] MEDS: CEFEPIME 1 GM in D5W 50 ML IV SCH ×2 (08:36→21:19)
[2022-10-26] MEDS: FERROUS SULFATE 325 MG TABLET.DR PO SCH ×2 (08:36→21:18)
[2022-10-26] MEDS: PANTOPRAZOLE SODIUM 40 MG TAB PO SCH ×2 (08:36→21:18)
[2022-10-26] MEDS: traMADol HCL HCL 50 MG TABLET (ULTRAM) PO PRN ×3 (08:37→21:39)
--- NOTE | 2022-10-26 10:15 | NUR ---
IV STARTED: ANOTHER IV STARTED USING G#22 AT RIGHT HAND, INTACT.
--- NOTE | 2022-10-26 11:00 | NUR ---
BT INITIATION: Consent signed per patient agreeing to administration of blood. Blood has been type and crossmatched. Blood sent from blood bank. Information on unit of blood checked against patient wristband at bedside by two nurses. All information matches. Patient or responsible libertarian informed of potential complications associated with blood transfusion. Informed of possible transfusion reaction symptoms. Aware of need to notify nurse at once of itching, shortness of breath, flushing, feeling of impending doom, or other symptoms not previously present. Vital signs taken within 5 minutes prior to initiation of transfusion. RN will remain with patient for first 15 minutes of transfusion at which time vital signs will be re-assessed.
[2022-10-26 12:11] VITALS: BP_SYST 132
--- NOTE | 2022-10-26 14:00 | NUR ---
BLOOD TRANSFUSION DONE: VITAL SIGNS TAKEN POST BLOOD TRANSFUSION. STABLE AND AFEBRILE.
--- NOTE | 2022-10-26 15:17 | NUR ---
PHYSICAL THERAPY CO-SIGN The Physical Therapy Progress Notes documented by Peoplesoft Developer have been reviewed. Reviewed/Co-Signed by: Pio Ramos Documentation Done by:NOREEN PENG Addendum: 10/26/22 at 1517 by Pio Ramos PT Amended: Links added.
--- NOTE | 2022-10-26 16:20 | NUR ---
BLOOD DRAWN: BLOOD DRAWN 2 HOURS POST BLOOD TRANSFUSION ORDERED BY DR BENTON.
[2022-10-26 16:52] LABS: HEMATOCRIT 28.1 % (36-48); HEMOGLOBIN 9.5 g/dL (12.0-16.0); MEAN CORPUSCULAR HEMOGLOBIN 31 pg (27-31); MEAN CORPUSCULAR HGB CONC 34 % (32-36); MEAN CORPUSCULAR VOLUME 91 fL (79.0-98.0); PLATELET COUNT (AUTO) 440 K/uL (130-430); RED BLOOD CELL COUNT(AUTO) 3.09 MIL/uL (4.2-6.2); RED CELL DISTRIBUTION WIDTH 14.8 % (9.0-15.0)
[2022-10-26 17:17] LABS: BAND % (MANUAL) 62 % (0-6); BASOPHILS % (MANUAL) 0 % (0-2); EOSINOPHILS % (MANUAL) 0 % (0-7); LYMPHOCYTES % (MANUAL) 12 % (20-46); METAMYELOCYTES % 1 % (0-0); MONOCYTES % (MANUAL) 3 % (0-11)
[2022-10-26 17:31] VITALS: BP_SYST 128
--- NOTE | 2022-10-26 19:00 | NUR ---
EVENING ROUNDS: FAMILY AT THE BEDSIDE. NO ACUTE DISTRESS.
[2022-10-26 20:00] VITALS: BP_SYST 122
--- NOTE | 2022-10-26 21:41 | NUR ---
Pain med Patient reporting severe pain 10/10 to abdomen, and also to left shoulder (old chronic injury). Administered Ultram as ordered.
[2022-10-27] VITALS: BP_SYST 120
[2022-10-27] MEDS: IPRATROPIUM/ALBUTEROL SULFATE 3 ML AMPUL.NEB (DUONEB) INH SCH ×4 (01:05→19:21)
[2022-10-27] MEDS: SUCRALFATE 1 GM TABLET PO SCH ×4 (01:06→17:26)
[2022-10-27] MEDS: NYSTATIN 500,000 UNITS/5 ML UDC PO SCH ×4 (01:07→17:25)
[2022-10-27 05:34] LABS: BASOPHILS % (AUTO) 0.3 % (0.0-2.0); EOSINOPHILS % (AUTO) 0.3 % (0.0-4.0); HEMATOCRIT 27.3 % (36-48); HEMOGLOBIN 8.9 g/dL (12.0-16.0); LYMPHOCYTES # (AUTO) 0.5 K/uL (1.0-5.5); LYMPHOCYTES % (AUTO) 6.5 % (20.5-51.5); MEAN CORPUSCULAR HEMOGLOBIN 30 pg (27-31); MEAN CORPUSCULAR HGB CONC 33 % (32-36); MEAN CORPUSCULAR VOLUME 91 fL (79.0-98.0); MONOCYTES # (AUTO) 0.5 K/uL (0.0-1.0); MONOCYTES % (AUTO) 6.9 % (1.7-9.3); NEUTROPHILS # (AUTO) 6.8 K/uL (1.8-7.7); PLATELET COUNT (AUTO) 497 K/uL (130-430); RED BLOOD CELL COUNT(AUTO) 2.99 MIL/uL (4.2-6.2); RED CELL DISTRIBUTION WIDTH 14.9 % (9.0-15.0); WHITE BLOOD COUNT (AUTO) 7.9 K/uL (4.8-10.8)
[2022-10-27 06:04] LABS: ANION GAP 4 (5-15); C-REACTIVE PROTEIN QUANT 20.3 mg/dL (0-0.5); CALCIUM 7.3 mg/dL (8.4-11.0); CHLORIDE 97 mmol/L (98-107); CREATININE 0.26 mg/dL (0.55-1.30); GLUCOSE 83 mg/dL (70-99); UREA NITROGEN, BLOOD 24 mg/dL (8-21)
--- NOTE | 2022-10-27 06:15 | NUR ---
Dr. Sheth rounds at bedside to see patient.
[2022-10-27] MEDS: traMADol HCL HCL 50 MG TABLET (ULTRAM) PO PRN (06:42)
--- NOTE | 2022-10-27 06:42 | NUR ---
Meds, bed maldonado Scheduled meds given and also Ultram for severe pain, reporting abdominal pain 01/05. Requested bed maldonado and she voided 300 ml light virginia urine. Repositioned for comfort. Safety precautions in place, will endorse care.
[2022-10-27 07:08] LABS: ERYTHROCYTE SEDIMENTATION RATE 38 MM/HR (0-20)
[2022-10-27] MEDS: BUDESONIDE 0.5 MG/2 ML AMPUL.NEB INH SCH ×2 (07:17→19:45)
[2022-10-27] MEDS: ACETYLCYSTEINE 20% 4 ML VIAL (RT) INH SCH ×3 (07:18→19:21)
--- NOTE | 2022-10-27 07:25 | NUR ---
MORNING ROUNDS: PATIENT AWAKE DURING ROUNDS.WITH DAUGHTER AT THE BEDSIDE. ON O2 2L/NC,GOOD SATURATION. CALL LIGHT WITH IN REACH. BED LOCKED AT LOWEST POSITION. DENIES ANY PAIN. NOT IN ANY RESPIRATORY DISTRESS.
[2022-10-27] MEDS: CEFEPIME 1 GM in D5W 50 ML IV SCH ×2 (08:13→22:13)
[2022-10-27] MEDS: FERROUS SULFATE 325 MG TABLET.DR PO SCH ×2 (09:00→22:13)
[2022-10-27] MEDS: PANTOPRAZOLE SODIUM 40 MG TAB PO SCH ×2 (09:00→22:13)
--- NOTE | 2022-10-27 10:04 | NUR ---
GI LAB: PATIENT TO GI LAB VIA GURNEY BY GI STAFF IN STABLE CONDITION.
[2022-10-27] MEDS ORDERED: fentaNYL CITRATE/PF 100 MCG/2 ML AMP ONE (10:36)
[2022-10-27] MEDS ORDERED: MIDAZOLAM HCL 5 MG/5 ML VIAL ONE (10:37)
[2022-10-27] MEDS ORDERED: BENZOCAINE 20% 0.5mL UD SPRAY MM ONE (10:41)
--- NOTE | 2022-10-27 11:14 | NUR ---
CONSULTATION PAGED REASON FOR CONSULTATION:HYPONATREMIA WAS CONSULT CALLED?Y PERSON WHO WAS NOTIFIED:[place] CONSULTING PHYSICIAN:DWAYNE TALBERT TIRE BLADDER MAKER SPECIALTY:NEPHRO TIRE BLADDER MAKER PHONE NUMBER:[phone] REQUESTING PHYSICIAN:ISAMAR GONZALEZ
[2022-10-27] MEDS ORDERED: NACL 0.9% 1,000 ML IV SCH (11:15)
--- NOTE | 2022-10-27 11:28 | NUR ---
Back from Gi Lab: Patient back from gi lab.Patient is drowsy.No acute distress. Continue to monitor.
[2022-10-27 12:03] VITALS: BP_SYST 103
[2022-10-27] MEDS ORDERED: SODIUM CHLORIDE 3% *HI-ALERT* 500 ML IV SCH (14:30)
--- NOTE | 2022-10-27 14:54 | NUR ---
PHYSICAL THERAPY CO-SIGN The Physical Therapy Progress Notes documented by Accounts Payable Lead have been reviewed. Reviewed/Co-Signed by: Eric Owen Documentation Done by:NOREEN PENG Addendum: 10/27/22 at 1454 by Eric Owen PT Amended: Links added.
--- NOTE | 2022-10-27 16:21 | NUR ---
MIDLINE PLACEMENT: MIDLINE PLACED ASEPTICALLY BY PICC LINE NURSE NOLA.TIME OUT RENDERED CORRECTLY. OKAY TO USED PER PICC LINE NURSE.
[2022-10-27] MEDS ORDERED: BISACODYL 5 MG TABLET.DR (DULCOLAX) PO ONE (17:00)
[2022-10-27 17:38] VITALS: BP_SYST 105
[2022-10-27] MEDS ORDERED: GOLYTELY / COLYTE SOLUTION 4 LITERS PO ONE (18:00)
--- NOTE | 2022-10-27 18:39 | NUR ---
EVENING ROUNDS STARTED PATIENT ON GOLYTELY,SON AT THE BEDSIDE. TO CALL GI DOCTOR IF NOT TOLERATED THE GOLYTELY. CALL LIGHT WITH IN REACH. BED LOCKED AT LOWEST POSITION. CONTINUE TO MONITOR.
--- NOTE | 2022-10-27 19:20 | NUR ---
RECEIVED REPORT ON PATIENT FROM JESSICA BENTON, ASSUMED CARE, AND STARTED ASSESSMENT.
[2022-10-27 20:01] VITALS: BP_SYST 121
[2022-10-27] MEDS: methylPREDNISolone SOD SUCC/PF 62.5 MG/ML VIAL IVP SCH (22:12)
[2022-10-28] VITALS (14 sets, daily range): BP systolic 98–148
[2022-10-28] MEDS: IPRATROPIUM/ALBUTEROL SULFATE 3 ML AMPUL.NEB (DUONEB) INH SCH ×4 (00:37→19:36)
[2022-10-28] MEDS: ACETYLCYSTEINE 20% 4 ML VIAL (RT) INH SCH ×4 (00:52→19:35)
[2022-10-28] MEDS: SUCRALFATE 1 GM TABLET PO SCH ×4 (01:37→23:50)
[2022-10-28] MEDS: methylPREDNISolone SOD SUCC/PF 62.5 MG/ML VIAL IVP SCH (05:54)
[2022-10-28] MEDS: NYSTATIN 500,000 UNITS/5 ML UDC PO SCH ×4 (05:57→23:50)
[2022-10-28] MEDS: BUDESONIDE 0.5 MG/2 ML AMPUL.NEB INH SCH ×2 (07:06→19:56)
--- NOTE | 2022-10-28 07:14 | NUR ---
REPORT GIVEN TO TAMIE GONZALES, AND CARE WAS TURNED OVER TO HER.
[2022-10-28 07:33] LABS: BASOPHILS % (AUTO) 0.1 % (0.0-2.0); HEMATOCRIT 28.8 % (36-48); HEMOGLOBIN 9.7 g/dL (12.0-16.0); LYMPHOCYTES # (AUTO) 0.3 K/uL (1.0-5.5); LYMPHOCYTES % (AUTO) 5.2 % (20.5-51.5); MEAN CORPUSCULAR HEMOGLOBIN 31 pg (27-31); MEAN CORPUSCULAR HGB CONC 34 % (32-36); MEAN CORPUSCULAR VOLUME 91 fL (79.0-98.0); MONOCYTES # (AUTO) 0.1 K/uL (0.0-1.0); MONOCYTES % (AUTO) 2.2 % (1.7-9.3); NEUTROPHILS % (AUTO) 92.5 % (40.0-70.0); PLATELET COUNT (AUTO) 533 K/uL (130-430); RED BLOOD CELL COUNT(AUTO) 3.16 MIL/uL (4.2-6.2); RED CELL DISTRIBUTION WIDTH 15.1 % (9.0-15.0); WHITE BLOOD COUNT (AUTO) 5.4 K/uL (4.8-10.8)
[2022-10-28] MEDS ORDERED: SIMETHICONE 40 MG/0.6 ML ML ONE (07:39)
[2022-10-28 07:53] LABS: ALANINE AMINOTRANSFERASE 14 U/L (12-78); ALBUMIN 1.3 g/dL (3.4-4.8); ANION GAP 6 (5-15); ASPARTATE AMINOTRANSFERASE 19 U/L (10-37); C-REACTIVE PROTEIN QUANT 22.6 mg/dL (0-0.5); CALCIUM 7.6 mg/dL (8.4-11.0); CHLORIDE 100 mmol/L (98-107); CREATININE 0.32 mg/dL (0.55-1.30); GLUCOSE 125 mg/dL (70-99); PHOSPHORUS 3.1 mg/dL (2.7-4.5); THYROID STIMULATING HORMONE 0.84 uIu/mL (0.34-4.82); TOTAL BILIRUBIN 0.3 mg/dL (0.0-1.0); UREA NITROGEN, BLOOD 20 mg/dL (8-21)
[2022-10-28 08:19] LABS: ERYTHROCYTE SEDIMENTATION RATE 46 MM/HR (0-20)
--- NOTE | 2022-10-28 08:25 | NUR ---
Opening Nurse Notes: Patient laying in bed. A/O x 4, patient speaks Cape Verdean. Patient breathing even 2L nasal cannula. No pain, no distress, no SOB. Bed is locked in lowest position. Call light within reach, all needs met, will continue with plan of care. Patient has orders for a colonoscopy today.
--- NOTE | 2022-10-28 08:30 | NUR ---
inserted ng tube right nares auscultated and aspirated to check for placement. Patient tolerated well.
[2022-10-28] MEDS: PANTOPRAZOLE SODIUM 40 MG TAB PO SCH ×2 (09:00→19:55)
[2022-10-28] MEDS: FERROUS SULFATE 325 MG TABLET.DR PO SCH ×2 (09:00→19:55)
--- NOTE | 2022-10-28 09:53 | NUR ---
Nurse Notes for GI: Patient GI not running clear at this time. Informed GI lab.
--- NOTE | 2022-10-28 10:08 | NUR ---
GI MD DR Galina FIGUEROA WAS CALLED, RE: TO CONFIRM IF HE WANTS TO ORDER A TAP ENEMA. SPOKE TO VARUN.
[2022-10-28] MEDS ORDERED: MIDAZOLAM HCL 5 MG/5 ML VIAL ONE (11:24)
[2022-10-28] MEDS ORDERED: fentaNYL CITRATE/PF 100 MCG/2 ML AMP ONE (11:24)
[2022-10-28] MEDS ORDERED: ONDANSETRON HCL 4 MG/2 ML VIAL ONE (11:37)
[2022-10-28] MEDS ORDERED: CALCIUM CHLORIDE 1 GM in NS 100 ML IV ONE (12:00)
--- NOTE | 2022-10-28 12:20 | NUR ---
Afternoon Nurse Notes: Patient in bed in stable condition. No pain, moderate distress, no SOB. Bed is locked in lowest position. Call light within reach, all needs met, will continue with plan of care.
--- NOTE | 2022-10-28 13:03 | NUR ---
ATTENDING MD DR Betsy BENTON WAS CALLED, RE: FOR FLUID OVERLOAD. SPOKE TO JASPER.
--- NOTE | 2022-10-28 13:28 | NUR ---
A F/U CALL RE: FLUID OVERLOAD TO ATTENDING MD DR BENTON WAS CALLED. SPOKE TO KIM.
--- NOTE | 2022-10-28 14:04 | NUR ---
RN DID NOT CLEAR PATIENT FOR PT TREATMENT TODAY D/T LETHARGIC FROM PROCEDURE.
--- NOTE | 2022-10-28 14:09 | NUR ---
ICU Transfer Nurse Notes: Report given to JESSICA Vazquez. Patient taken to ICU due to SOB, difficulty breathing, unstable HR, and tachycardia.
--- NOTE | 2022-10-28 14:25 | NUR ---
REPORT RECEIVED FROM JAKE LOPEZ, ALL CARES ASSUMED. PT A&Ox4, VOICE IS RASPY. PT HAS LABORED BREATHING, ON NRB 15L. HR 130. PT COMPLAINING OF 8/10 ABDOMINAL PAIN. 7/10 BACK PAIN. ADVISED DURING REPORT THAT PAIN MEDICATION IS NOT DUE FOR PT UNTIL 1900 DUE TO PROCEDURE. PT HAS LARGE DARK RED STOOL. WILL INSERT HOOK PER DR BENTON.
[2022-10-28] MEDS: CEFEPIME 1 GM in D5W 50 ML IV SCH ×2 (14:36→19:56)
--- NOTE | 2022-10-28 14:36 | NUR ---
0900 IV ABX NOT GIVEN D/T PREP FOR COLONOSCOPY
[2022-10-28] MEDS ORDERED: levETIRAcetam 500 MG TABLET PO SCH (15:00)
[2022-10-28] MEDS ORDERED: GABAPENTIN 400 MG CAPSULE PO SCH (15:00)
--- NOTE | 2022-10-28 15:44 | NUR ---
Received a call from Dr Wayne-he stated the patient needed an ENT consult for sore throat. He asked if I would reach out to Dr Larry Berry to see if he would consult. I left a message for Dr Berry for consult [phone]. [facility] agreed to Medicare rates for the consult.
--- NOTE | 2022-10-28 16:20 | NUR ---
SPOKE WITH DR BENTON REGARDING BLEEDING SCAN, PT IS NOT STABLE ENOUGH FOR SCAN. ORDER ON HOLD. TAXI SERVICER MADE AWARE. DR BENTON GAVE VERBAL ORDER FOR ANOTHER STAT CBC AT 1700.
[2022-10-28 17:53] LABS: HEMATOCRIT 27.9 % (36-48); HEMOGLOBIN 9.1 g/dL (12.0-16.0); MEAN CORPUSCULAR HEMOGLOBIN 30 pg (27-31); MEAN CORPUSCULAR HGB CONC 33 % (32-36); PLATELET COUNT (AUTO) 553 K/uL (130-430); RED BLOOD CELL COUNT(AUTO) 3.01 MIL/uL (4.2-6.2); RED CELL DISTRIBUTION WIDTH 15.1 % (9.0-15.0); WHITE BLOOD COUNT (AUTO) 17.7 K/uL (4.8-10.8)
[2022-10-28 17:55] LABS: MEAN CORPUSCULAR VOLUME 93 fL (79.0-98.0)
[2022-10-28 18:06] LABS: BAND % (MANUAL) 8 % (0-6); BASOPHILS % (MANUAL) 0 % (0-2); EOSINOPHILS % (MANUAL) 0 % (0-7); LYMPHOCYTES % (MANUAL) 6 % (20-46); MONOCYTES % (MANUAL) 8 % (0-11)
[2022-10-28] MEDS: MORPHINE 4 MG INJ. 4 MG/ML VIAL IVP PRN (19:55)
[2022-10-29] VITALS (24 sets, daily range): BP systolic 97–132
[2022-10-29] MEDS: ACETYLCYSTEINE 20% 4 ML VIAL (RT) INH SCH ×4 (01:00→19:30)
[2022-10-29] MEDS: IPRATROPIUM/ALBUTEROL SULFATE 3 ML AMPUL.NEB (DUONEB) INH SCH ×4 (01:00→19:30)
[2022-10-29] MEDS: MORPHINE 4 MG INJ. 4 MG/ML VIAL IVP PRN ×2 (03:12→20:46)
[2022-10-29] MEDS: NYSTATIN 500,000 UNITS/5 ML UDC PO SCH ×4 (04:52→23:10)
[2022-10-29] MEDS: SUCRALFATE 1 GM TABLET PO SCH ×4 (04:52→23:09)
[2022-10-29 05:29] LABS: HEMATOCRIT 24.8 % (36-48); HEMOGLOBIN 8.2 g/dL (12.0-16.0); LYMPHOCYTES # (AUTO) 0.6 K/uL (1.0-5.5); LYMPHOCYTES % (AUTO) 3.4 % (20.5-51.5); MEAN CORPUSCULAR HEMOGLOBIN 30 pg (27-31); MEAN CORPUSCULAR HGB CONC 33 % (32-36); MEAN CORPUSCULAR VOLUME 92 fL (79.0-98.0); MONOCYTES # (AUTO) 0.8 K/uL (0.0-1.0); MONOCYTES % (AUTO) 4.6 % (1.7-9.3); NEUTROPHILS # (AUTO) 15.9 K/uL (1.8-7.7); PLATELET COUNT (AUTO) 468 K/uL (130-430); RED BLOOD CELL COUNT(AUTO) 2.71 MIL/uL (4.2-6.2); RED CELL DISTRIBUTION WIDTH 15.1 % (9.0-15.0); WHITE BLOOD COUNT (AUTO) 17.2 K/uL (4.8-10.8)
[2022-10-29 06:44] LABS: ERYTHROCYTE SEDIMENTATION RATE 26 MM/HR (0-20)
[2022-10-29 07:03] LABS: ANION GAP 4 (5-15); C-REACTIVE PROTEIN QUANT 17.1 mg/dL (0-0.5); CHLORIDE 103 mmol/L (98-107); CREATININE 0.35 mg/dL (0.55-1.30); GLUCOSE 129 mg/dL (70-99); PHOSPHORUS 2.5 mg/dL (2.7-4.5); UREA NITROGEN, BLOOD 20 mg/dL (8-21)
[2022-10-29] MEDS: BUDESONIDE 0.5 MG/2 ML AMPUL.NEB INH SCH ×2 (07:13→19:50)
[2022-10-29] MEDS ORDERED: POTASSIUM CHLORIDE 20 MEQ TAB.PRT.SR PO ONE (07:15)
[2022-10-29] MEDS: FERROUS SULFATE 325 MG TABLET.DR PO SCH ×2 (09:23→21:16)
[2022-10-29] MEDS: PANTOPRAZOLE SODIUM 40 MG TAB PO SCH ×2 (09:23→21:16)
[2022-10-29] MEDS: CEFEPIME 1 GM in D5W 50 ML IV SCH ×2 (09:24→21:16)
[2022-10-29] MEDS: traMADol HCL HCL 50 MG TABLET (ULTRAM) PO PRN ×2 (09:24→14:01)
--- NOTE | 2022-10-29 10:09 | NUR ---
Called Dr. Sedrick Marks with a consult,spoke with Lindsay from the exchange
[2022-10-29] MEDS ORDERED: K PHOS 30 MM in NS 250 ML IV ONE (11:00)
--- NOTE | 2022-10-29 19:21 | NUR ---
Nutrition F/U RD reviewed pts current EMR including diet hx, physician notes, nursing notes, pertinent labs/meds/procedures, care trends and care activity. Medical History Comment: Per H&P, History of cerebral aneurysm clipped at age 37 on the right side, peptic ulcer disease in the past, especially at age 20, migraine headaches, stroke, age of 16, frequent pneumonias and bronchitis, gastroesophageal reflux disease, polyarthritis, chronic anemia and now with significant neutropenia. Per progress note (10/17/22), Dr. Wayne, COPD stable, s/p perforated bowel secondary to duodenal ulcer status post surgery doing well. G-tube has been removed, patient currently on clear liquid diet. 10/23: Pt had blood in stool x 3 (bright red color). does not want pt NPO at this time. Per Progress note (10/29/22) patient with blood in stools, continues in ICU. Perforated viscus, peritonitis Antibiotics, leukopenia with left shift secondary to bone marrow suppression from infection, grade 2 neutropenia. Patient currently on full liquid diet. Subjective Information: RD met w/ pt at bedside this afternoon with son at bedside. She attested that her appetite is not currently very good. Per son, patient did not want to drink anything, he reports he had to force her to drink Ensure. However, patient reports she drinks the Gil when she gets it. RD checked bedscale [id number]#, likely inaccurate d/t linens and equipment on bed. Attending RN out on lunch during RD rounds, spoke with covering RN who attested she did not know of any plan to advance diet due to GI issues, however, she suspects the MD will assess and consider the patient for diet advancement tomorrow. Per EMR review: abd rigid and distended w/ hypoactive bowel sounds; Pedro 15 w/ incision on abd; Pt is not meeting nutritional needs at this time. Patient appeared emaciated and thin with sunken eyes and cheeks; son reports he thinks patient has lost a lot of weight although unclear on how much as bed weight seems to be inaccurate. Labs: 10/29/22: Hgb 8.2L, HCt 24.8L, K+ 3.3L, Glucose 129H, Ca 8.0L, Phosphorus 2.5L, CRP 17.1H Current Diet Order/Nutrition Support Full liquid, Ensure surgery TID x 5 days; Gil BID x 3 days % PO intake Negligible avg of 8% x 8 meal records; patient refused x3 meals Last BM / x 5 diarrhea per patient Estimated Energy Expenditure (kcals/day) 8391-3516 kcals/day (30-32 kcals/kg of ABW 50 kg for geriatric maintenance/Sx healing) Estimated Protein Required (g/day) 50-75 gm/day (1.0-1.5 gm/kg of ABW 50 gm for geriatric maintenance/Sx healing) Estimated Fluid Required (l/day) 1.5-1.6 L/day (1 mL/kcal or per MD Rx) Problem/Etiology/Signs/Symptoms * Inadequate protein/energy intake r/t diet Rx AEB inadequate PO intake likely x2 weeks per EMR documentation (ongoing) * Altered nutrition-related lab values r/t current medical condition AEB labs (10/29/22) Hgb 8.2L, HCt 24.8L, K+ 3.3L, Glucose 129H, Ca 8.0L, Phosphorus 2.5L, CRP 17.1H. (Ongoing) * Altered GI function r/t alteration in gastrointestinal tract function AEB limitation of PO intakes due to GI symptoms. (ongoing) Expected Outcomes/Goals * Advance diet as tolerated/per MD Rx within 1-3 days; PO intake to meet at least 75% of estimated nutrient needs without GI complications * Improved/stable nutrition-related lab values (ongoing) * Maintain skin integrity (ongoing/met) * Stabilize weight, no significant weight changes during hospital stay (ongoing) Dietitian Recommendations * Continue Full Liquid diet (ONS Ensure TID comes standard w/ current diet; ONS yields 1050 kcal/day) * Recommend staff continue to encourage PO intakes * Recommend increase Gil TID to promote wound healing and help meet nutrient needs * Consider advance diet as tolerated (Soft (low-fiber/bland) diet) Follow up *High risk : f/u in 2-3 days RM, JAVIERN
--- NOTE | 2022-10-29 19:25 | NUR ---
Dietitian Recommendations * Continue Full Liquid diet (ONS Ensure TID comes standard w/ current diet; ONS yields 1050 kcal/day) * Recommend staff continue to encourage PO intakes * Recommend increase Gil TID to promote wound healing and help meet nutrient needs * Consider advance diet as tolerated (Soft (low-fiber/bland) diet) Monitor weight trends, PO intake, GI, skin, labs RM, RDN
[2022-10-29] MEDS ORDERED: metroNIDAZOLE 500 mg/NS 100 ML IV ONE (21:17)
[2022-10-29] MEDS: metroNIDAZOLE 500 mg/NS 100 ML IV SCH (23:09)
[2022-10-30] VITALS (13 sets, daily range): BP systolic 110–136
[2022-10-30] MEDS: ACETYLCYSTEINE 20% 4 ML VIAL (RT) INH SCH ×4 (01:05→19:00)
[2022-10-30] MEDS: IPRATROPIUM/ALBUTEROL SULFATE 3 ML AMPUL.NEB (DUONEB) INH SCH ×4 (01:05→19:00)
[2022-10-30] MEDS: MORPHINE 4 MG INJ. 4 MG/ML VIAL IVP PRN (02:30)
[2022-10-30 06:02] LABS: EOSINOPHILS # (AUTO) 0.1 K/uL (0.0-0.4); EOSINOPHILS % (AUTO) 0.3 % (0.0-4.0); HEMATOCRIT 24.8 % (36-48); HEMOGLOBIN 8.3 g/dL (12.0-16.0); LYMPHOCYTES # (AUTO) 0.9 K/uL (1.0-5.5); LYMPHOCYTES % (AUTO) 5.7 % (20.5-51.5); MEAN CORPUSCULAR HEMOGLOBIN 31 pg (27-31); MEAN CORPUSCULAR HGB CONC 34 % (32-36); MEAN CORPUSCULAR VOLUME 92 fL (79.0-98.0); MONOCYTES # (AUTO) 0.8 K/uL (0.0-1.0); NEUTROPHILS # (AUTO) 14.6 K/uL (1.8-7.7); PLATELET COUNT (AUTO) 453 K/uL (130-430); RED CELL DISTRIBUTION WIDTH 14.9 % (9.0-15.0); WHITE BLOOD COUNT (AUTO) 16.4 K/uL (4.8-10.8)
[2022-10-30 06:31] LABS: ERYTHROCYTE SEDIMENTATION RATE 40 MM/HR (0-20)
[2022-10-30] MEDS: SUCRALFATE 1 GM TABLET PO SCH ×3 (06:36→18:11)
[2022-10-30] MEDS: NYSTATIN 500,000 UNITS/5 ML UDC PO SCH ×3 (06:37→18:11)
--- NOTE | 2022-10-30 06:50 | NUR ---
Contacted Dr Hope ([facility]) to report low urine output for the night 150 ml. Orders received to start maintenance fluids NS @ 70 ml/h. will continue to monitor.
[2022-10-30] MEDS: NACL 0.9% 1,000 ML IV SCH (07:00)
[2022-10-30] MEDS: BUDESONIDE 0.5 MG/2 ML AMPUL.NEB INH SCH ×2 (07:16→19:30)
[2022-10-30 07:39] LABS: ALANINE AMINOTRANSFERASE 16 U/L (12-78); ALBUMIN 1.3 g/dL (3.4-4.8); ANION GAP 4 (5-15); ASPARTATE AMINOTRANSFERASE 18 U/L (10-37); C-REACTIVE PROTEIN QUANT 21.7 mg/dL (0-0.5); CALCIUM 8.5 mg/dL (8.4-11.0); CHLORIDE 98 mmol/L (98-107); CREATININE 0.45 mg/dL (0.55-1.30); GLUCOSE 107 mg/dL (70-99); TOTAL BILIRUBIN 0.2 mg/dL (0.0-1.0); UREA NITROGEN, BLOOD 31 mg/dL (8-21)
--- NOTE | 2022-10-30 08:00 | NUR ---
PATIENT RECEIVED ALERT AND ORIENTED X3;MAEX3 WITH LEFT ARM WEAKNESS; PT ON 4L NC WITH SATS>93%; ST ON TELEMETRY;PT TOLERATING FULL LIQUID DIET; HOOK TO DD WITH SMALL AMOUNT OF YELLOW URINE;NO DISTRESS NOTED
[2022-10-30] MEDS: PANTOPRAZOLE SODIUM 40 MG TAB PO SCH ×2 (08:23→20:17)
[2022-10-30] MEDS: FERROUS SULFATE 325 MG TABLET.DR PO SCH ×2 (08:24→20:17)
[2022-10-30] MEDS: traMADol HCL HCL 50 MG TABLET (ULTRAM) PO PRN ×3 (08:25→18:12)
--- NOTE | 2022-10-30 08:30 | NUR ---
PT C/O HEADACHE 01/05-MEDICATED WITH ULTRAM PER ORDER;WILL CONTINUE TO MONITOR
[2022-10-30] MEDS: CEFEPIME 1 GM in D5W 50 ML IV SCH ×2 (09:24→20:18)
[2022-10-30] MEDS: metroNIDAZOLE 500 mg/NS 100 ML IV SCH ×2 (09:25→20:57)
--- NOTE | 2022-10-30 11:30 | NUR ---
PT TRANSFERRED TO TELE-ROOM#121A; NO DISTRESS NOTED;REPORT GIVEN TO KHANH
--- NOTE | 2022-10-30 11:41 | NUR ---
RECEIVED PATIENT FROM JESSICA BENITEZ. TRANSFERRED PATIENT TO [facility] BED. APPLIED TELEMETRY BOX. BREATHING IS EVEN AND UNLABORED ON 4L NC 97%. IV FLUIDS CONNECTED AND RUNNING PRESCRIBED. NO S/S OF DISTRESS OR PAIN NOTED. HOOK CATH IS DRAINING TO GRAVITY YELLOW URINE. BLOOD PRESSURE 115/65, HEART RATE 108, OXYGEN 97% , RESPIRATIONS 15, TEMP 97. SAFETY CHECKS MADE AND CALL LIGHT WITHIN REACH.
--- NOTE | 2022-10-30 18:48 | NUR ---
CLOSING NOTES: PATIENT IN BED WATCHING TV. NO S/S OF DISTRESS OR PAIN REPORTED. BREATHING IS EVEN AND UNLABORED ON 4L NC 94%. IV FLUIDS ARE RUNNING PRESCRIBED. HOOK CATH DRAINING TO GRAVITY. ALL NEEDS MET AT THIS TIME, SAFETY CHECKS MADE AND CALL LIGHT WITHIN REACH. WILL ENDORSE TO PIPE BOWLS PAINT TRIMMER NURSE.
[2022-10-31 00:09] VITALS: BP_SYST 145
[2022-10-31] MEDS: ACETYLCYSTEINE 20% 4 ML VIAL (RT) INH SCH ×3 (01:11→12:58)
[2022-10-31] MEDS: IPRATROPIUM/ALBUTEROL SULFATE 3 ML AMPUL.NEB (DUONEB) INH SCH ×3 (01:11→12:58)
[2022-10-31] MEDS: SUCRALFATE 1 GM TABLET PO SCH ×3 (01:46→12:30)
[2022-10-31] MEDS: NYSTATIN 500,000 UNITS/5 ML UDC PO SCH ×3 (01:46→12:29)
[2022-10-31] MEDS: NACL 0.9% 1,000 ML IV SCH (01:47)
[2022-10-31 05:42] LABS: BASOPHILS % (AUTO) 0.2 % (0.0-2.0); EOSINOPHILS # (AUTO) 0.1 K/uL (0.0-0.4); EOSINOPHILS % (AUTO) 0.7 % (0.0-4.0); HEMATOCRIT 26.6 % (36-48); HEMOGLOBIN 8.7 g/dL (12.0-16.0); LYMPHOCYTES # (AUTO) 0.7 K/uL (1.0-5.5); LYMPHOCYTES % (AUTO) 5.6 % (20.5-51.5); MEAN CORPUSCULAR HEMOGLOBIN 30 pg (27-31); MEAN CORPUSCULAR HGB CONC 33 % (32-36); MEAN CORPUSCULAR VOLUME 93 fL (79.0-98.0); MONOCYTES # (AUTO) 0.4 K/uL (0.0-1.0); MONOCYTES % (AUTO) 3.2 % (1.7-9.3); NEUTROPHILS % (AUTO) 90.3 % (40.0-70.0); PLATELET COUNT (AUTO) 432 K/uL (130-430); RED BLOOD CELL COUNT(AUTO) 2.88 MIL/uL (4.2-6.2); RED CELL DISTRIBUTION WIDTH 15.1 % (9.0-15.0); WHITE BLOOD COUNT (AUTO) 13.3 K/uL (4.8-10.8)
[2022-10-31] MEDS: traMADol HCL HCL 50 MG TABLET (ULTRAM) PO PRN (06:14)
--- NOTE | 2022-10-31 06:25 | NUR ---
Closing notes/Pain Pt awake, resting in bed. No s/s distress. Pt has thick light greenish phlegm. IVF infusing at ordered rate WILLIAM midline. Pt c/o headache 12/05, medicated with Ultram PO as needed. Call light within reach. Bed low, locked, siderails up x3, alarm on. To endorse to AM nurse.
[2022-10-31 06:37] LABS: ALANINE AMINOTRANSFERASE 16 U/L (12-78); ALBUMIN 1.3 g/dL (3.4-4.8); ANION GAP 4 (5-15); ASPARTATE AMINOTRANSFERASE 22 U/L (10-37); C-REACTIVE PROTEIN QUANT 16.7 mg/dL (0-0.5); CALCIUM 8.5 mg/dL (8.4-11.0); CHLORIDE 99 mmol/L (98-107); CREATININE 0.37 mg/dL (0.55-1.30); GLUCOSE 122 mg/dL (70-99); TOTAL BILIRUBIN 0.2 mg/dL (0.0-1.0); UREA NITROGEN, BLOOD 27 mg/dL (8-21)
[2022-10-31 07:18] LABS: ERYTHROCYTE SEDIMENTATION RATE 58 MM/HR (0-20)
[2022-10-31] MEDS: BUDESONIDE 0.5 MG/2 ML AMPUL.NEB INH SCH (07:28)
--- NOTE | 2022-10-31 07:30 | NUR ---
MORNING ROUNDS: PATIENT MAINTAINED ON O2 3L/NC,GOOD SATURATION. IV MIDLINE AT WILLIAM,INTACT. HOOK DRAINING TO ELIGIO URINE. SAFETY MEASURES RENDERED. STABLE.
[2022-10-31 08:49] VITALS: BP_SYST 126
[2022-10-31] MEDS: FERROUS SULFATE 325 MG TABLET.DR PO SCH (08:50)
[2022-10-31] MEDS: metroNIDAZOLE 500 mg/NS 100 ML IV SCH (08:51)
[2022-10-31] MEDS: CEFEPIME 1 GM in D5W 50 ML IV SCH (08:51)
[2022-10-31] MEDS: PANTOPRAZOLE SODIUM 40 MG TAB PO SCH (08:51)
--- NOTE | 2022-10-31 10:09 | NUR ---
CONSULTATION FOLLOW-UP REASON FOR CONSULTATION: HOARSENESS OF VOICE WAS CONSULT CALLED? Y PERSON WHO WAS NOTIFIED: [place] CONSULTING PHYSICIAN: HONEY PROCESSOR SPECIALTY: PRIMER EXPEDITOR AND DRIER PHONE NUMBER: [phone] REQUESTING PHYSICIAN:DR.SANDOUK URIBE DOES NOT ACCEPT THE PATIENT'S INSURANCE
--- NOTE | 2022-10-31 10:20 | NUR ---
ENT: DR PEACE CAN NOT SEE PATIENT THIS TIME DUE TO INSURANCE.
[2022-10-31 11:36] VITALS: BP_SYST 134
--- NOTE | 2022-10-31 12:48 | NUR ---
PHYSICAL THERAPY CO-SIGN The Physical Therapy Progress Notes documented by [employer] have been reviewed. Reviewed/Co-Signed by: Eric Owen Documentation Done by:NOREEN PENG Addendum: 10/31/22 at 1248 by Eric Owen PT Amended: Links added.
--- NOTE | 2022-10-31 15:04 | NUR ---
DC ORDER: WITH ORDERS FROM DR Carroll STAHL.DC TRANSFER TO SNF WHEN IS AVAILABLE,CLEARED BY SURGEON.CONTINUE HOME MEDS AND IV ANTIBIOTICS ORDERED.
[2022-10-31] MEDS ORDERED: PRO40 PO (15:10)
[2022-10-31] MEDS ORDERED: SUCR1TAB31 PO (15:10)
[2022-10-31] MEDS ORDERED: CEFE1FRO IV (15:10)
[2022-10-31] MEDS ORDERED: TRAM50TA2 PO (15:10)
[2022-10-31] MEDS ORDERED: Ferrous Sulfate PO (15:10)
[2022-10-31] MEDS ORDERED: FLAPM500 IV (15:10)
--- NOTE | 2022-10-31 15:46 | NUR ---
SPOKE TO PATIENTS DAUGHTER LET HER KNOW THAT HER MOM WILL ARRIVE AT [facility] BY 4:30. MOTIVE IS HERE TO TAKE HER.
[2022-10-31 16:00] VITALS: BP_SYST 146
--- NOTE | 2022-10-31 16:00 | NUR ---
REPORT: REPORT GIVEN TO CHANI DOUGLAS FROM [facility].
--- NOTE | 2022-10-31 16:45 | NUR ---
DISCHARGE TRANSFER NOTES: TRANSFER PACKETS AND PERSONAL BELONGINGS SEND TOGETHER WITH THE PATIENT GOING TO [facility]. MIDLINE ACCESS, LEFT UPPER ARM, KEPT FOR IV ANTIBIOTIC CONTINUATION. KEPT HOOK WELL ORDERED. [facility] TRANSPORTED PATIENT TO [facility] IN STABLE CONDITION.
== END 2022-10-31 16:45 | DRG 329 ==
LOC: SED 18:43 → STU 21:33 → SMU 10-16 15:47 → SIC 10-28 13:50 → STU 10-30 11:05
PROVIDERS: ADMIT Surgery; ATTEND Surgery
PROC: 0DU907Z Supplement Duodenum with Autologous Tissue Substitute, Open Approach (ICD-10-PCS; principal; 2022-10-14 10:20)
PROC: 30233N1 Transfusion of Nonautologous Red Blood Cells into Peripheral Vein, Percutaneous Approach (ICD-10-PCS; 2022-10-21)
PROC: 0DB78ZX Excision of Stomach, Pylorus, Via Natural or Artificial Opening Endoscopic, Diagnostic (ICD-10-PCS; 2022-10-27)
PROC: 0DJD8ZZ Inspection of Lower Intestinal Tract, Via Natural or Artificial Opening Endoscopic (ICD-10-PCS; 2022-10-28)
DX: K26.6 Chronic or unspecified duodenal ulcer with both hemorrhage and perforation (principal); A41.9 Sepsis, unspecified organism; K65.9 Peritonitis, unspecified; E43 Unspecified severe protein-calorie malnutrition; J96.00 Acute respiratory failure, unspecified whether with hypoxia or hypercapnia; D62 Acute posthemorrhagic anemia; E87.1 Hypo-osmolality and hyponatremia; Z68.1 Body mass index [BMI] 19.9 or less, adult; K29.71 Gastritis, unspecified, with bleeding; M54.9 Dorsalgia, unspecified; J43.9 Emphysema, unspecified; D70.9 Neutropenia, unspecified; K21.9 Gastro-esophageal reflux disease without esophagitis; M13.0 Polyarthritis, unspecified; G40.909 Epilepsy, unspecified, not intractable, without status epilepticus; D75.839 Thrombocytosis, unspecified; E88.09 Other disorders of plasma-protein metabolism, not elsewhere classified; E87.6 Hypokalemia; E83.39 Other disorders of phosphorus metabolism; E83.51 Hypocalcemia; B96.89 Other specified bacterial agents as the cause of diseases classified elsewhere; Z20.822 Contact with and (suspected) exposure to COVID-19; G43.909 Migraine, unspecified, not intractable, without status migrainosus; Z87.891 Personal history of nicotine dependence; Z86.73 Personal history of transient ischemic attack (TIA), and cerebral infarction without residual deficits; Z80.8 Family history of malignant neoplasm of other organs or systems; Z63.4 Disappearance and death of family member
CPT/HCPCS: 36415; 36600; 43239; 70490; 71045; 72100-TC; 73521; 74018; 76376; 80048; 80053; 81000; 82272; 82533; 82607; 82728; 82746; 82803; 83540; 83550; 83735; 83880; 84100; 84443; 84484; 85007; 85025; 85027; 85610-TC; 85651-TC; 85730-TC; 86140; 86886; 86900; 86901; 86920; 87040; 87081; 87086; 88305; 88312; 88313; 92610-GN; 93005; 93306; 93970; 94010; 94640; 94668; 94760; 96361; 96374; 96375; 97110-GP; 97112-GP; 97116-GP; 97530-GP; 99285; C9113; C9290; G0378; J0131; J0330; J0690; J0692; J1100; J1170; J1650; J2250; J2270; J2405; J2543; J2704; J2930; J3010; J3480; J3490; J7030; J7042; J7050; J7060; J7120; J7608; J7613; J7626; P9021; Q9964

== ENCOUNTER 2022-11-02 12:15 | Inpatient (IN) | payer OTHER, MEDICAID ==
[~2022-11-02] VITALS: Ht 154.9 cm; Wt 49.9 kg
[2022-11-02] VITALS (15 sets, daily range): BP systolic 94–131
[~2022-11-02 12:15] MED LIST changes: -ACET-2634 PO; -ALBMDI INH; -BENZ100C92 PO; +CEFE1FRO IV; +ETOMIDATE 20 MG/ 10 ML VIAL (AMIDATE) ONE; +FLAPM500 IV; +Ferrous Sulfate PO; -GUAI-723 PO; -HYDR-3917 PO; +LEVE250T2 PO; -LIDO1ADH77 TP; +NEU400 PO; -PHEDM120 PO; -PRED20TA PO; +PRO40 PO; -SOM350 PO; +SUCR1TAB31 PO; +TRAM50TA2 PO; -ZIT250 PO
--- NOTE | 2022-11-02 12:15 | NUR ---
Placed in room 01 . Placed on medical translator, blood pressure machine and pulse oximeter. To gown for exam. Side rails up.
--- NOTE | 2022-11-02 12:15 | NUR ---
Patient not known to be of full code status. Patient medicated with [12] mg of [Etomidate] for sedation prior to placement of ET tube. Respiratory therapy at bedside prior to placement. Size [7.5, 20 @lip ] ET tube placed by Dr Madsen. Cuff inflated with [10] cc air. Auscultation of breath sounds over bilateral chest wall. ET tube secured with [ ET securement strap]. O2 sats [100]% . PCXR ordered to check tube placement.
--- NOTE | 2022-11-02 12:16 | NUR ---
Dr Madsen evaluating patient at bedside
--- NOTE | 2022-11-02 12:17 | NUR ---
Sherri cortes in [facility] - 11/02/22 at 1221 by [email or web address] Pt brought from [facility] with c/o altered and SOB,
--- NOTE | 2022-11-02 12:17 | NUR ---
Pt brought from [facility] with c/o SOB since yesterday at 1700,pt become altered today with O2 70% at the facility, pt arrived on NRB mask with O2 sat 97% , GCS, 1,1,1 pt afebrile, skin pink and dry,afebrile, folley cath in place and picline on L upper arm, shallow respirations, will cont to monitor.
--- NOTE | 2022-11-02 12:17 | NUR ---
Note sebastian in EDM - 11/02/22 at 1227 by [email or web address] Pt brought from [facility] with c/o SOB since yesterday at 1700,pt become altered today with O2 70% at the facility, pt arrived on NRB mask with O2 sat 97% , GCS, 1,1,1 pt afebrile, skin pink and dry,afebrile, folley cath in place and picline on L upper arm, shallow respirations, will cont to monitor.
--- NOTE | 2022-11-02 12:18 | NUR ---
RT NOTE: 1212 Patient was intubated with size 7.5 ETT, MAC 3 blade. ETT secured at 20cm gum line, awaiting for CXray to check proper tube placement. Patient was intubated by Dr Madsen in one attempt. EtCO2 color change noted. Patient suctioned via ETT due to secretions backing up in the tube. Bilateral breath sounds noted, no gastric sound noted while ventilating patient with ambu bag. 1218 Patient placed on charted settings. Will obtain ABG after 30 mins.
--- NOTE | 2022-11-02 12:19 | NUR ---
CALL PLACED TO [facility] AND SPOKE WITH NURSING TO FAX OVER PTS PAPERWORK, ESPECIALLY THE POLST. ONLY MED SHEET WAS BROUGHT WITH PT. MEDICS CALLED TO [facility] AND TOLD PT IS FULL CODE
--- NOTE | 2022-11-02 12:20 | NUR ---
Bilateral arms swelling noted, BP cuff placed on L lower extremitie.
[2022-11-02] MEDS ORDERED: NS 1000 ML IV.SOLN IV ONE (12:30)
[2022-11-02] MEDS ORDERED: PIPERACILLIN/TAZO 4.5GM/DEX-IS 100 ML IV SCH (12:30)
[2022-11-02] MEDS ORDERED: ETOMIDATE 20 MG/ 10 ML VIAL (AMIDATE) IVP ONE (12:30)
[2022-11-02] MEDS ORDERED: CEFE1VIA10 IV (12:40)
[2022-11-02] MEDS ORDERED: ACET325T39 PO (12:40)
[2022-11-02] MEDS ORDERED: GABA-331 PO (12:40)
[2022-11-02] MEDS ORDERED: SUCR1TAB PO (12:40)
[2022-11-02] MEDS ORDERED: ACET500T95 PO (12:40)
[2022-11-02] MEDS ORDERED: FURO-150 PO (12:40)
[2022-11-02] MEDS ORDERED: LEVE100S PO (12:40)
[2022-11-02] MEDS ORDERED: DOCU-159 PO (12:40)
[2022-11-02] MEDS ORDERED: TRAM50TA2 PO (12:40)
[2022-11-02] MEDS ORDERED: DULR10 PR (12:40)
[2022-11-02] MEDS ORDERED: PRO40 PO (12:40)
[2022-11-02] MEDS ORDERED: FERR-57 PO (12:40)
[2022-11-02] MEDS ORDERED: METR500T PO (12:40)
[2022-11-02] MEDS ORDERED: SENN8.6T19 PO (12:40)
[2022-11-02] MEDS ORDERED: MOM PO (12:40)
[2022-11-02] MEDS ORDERED: IPRA3AMP9 INH (12:44)
[2022-11-02] MEDS ORDERED: PROPOFOL DRIP 100 ML IV ONE (12:45)
[2022-11-02] MEDS ORDERED: fentaNYL CITRATE/PF 100 MCG/2 ML AMP IVP ONE (12:45)
[2022-11-02 12:48] LABS: BILIRUBIN,URINE NEGATIVE (NEGATIVE); CLARITY/URINE CLEAR (CLEAR); COLOR,URINE YELLOW (YELLOW); GLUCOSE,URINE NEGATIVE (NEGATIVE); KETONES,URINE NEGATIVE (NEGATIVE); LEUKOCYTE ESTERASE ,URINE NEGATIVE (NEGATIVE); NITRITE, URINE NEGATIVE (NEGATIVE); PROTEIN URINE TRACE (NEGATIVE); UROBILINOGEN,URINE 0.2 (0.2-1.0)
[2022-11-02 12:52] LABS: BLOOD, URINE TRACE (NEGATIVE)
[2022-11-02] MEDS ORDERED: PIPERACILLIN/TAZO 4.5GM/DEX-IS 100 ML IV ONE (12:52)
[2022-11-02] MEDS ORDERED: PIPERACILLIN/TAZOBACTAM 4.5 GM/VIAL (ZOSYN) IV ONE (12:56)
[2022-11-02 12:58] LABS: BACTERIA,URINE RARE /HPF (None Seen); MUCUS,URINE 1+ /LPF (None Seen); WBC,URINE 0-3 /HPF (0-3)
[2022-11-02] MEDS ORDERED: NOREPINEPHRINE BITARTRATE 4 MG in NS 246 ML IV ONE (13:00)
[2022-11-02] MEDS ORDERED: VANCOMYCIN HCL 1,000 MG in NS 250 ML IV ONE (13:00)
--- NOTE | 2022-11-02 13:10 | NUR ---
RT NOTE: 1310 Increased rate to 20 breaths per min and FiO2 down to 50%. Made JESSICA Adkins aware. Addendum: 11/02/22 at 1321 by ALIYARTCA RT NOTE: 1310 Increased rate to 20 breaths per min and FiO2 down to 50% as per ABG result. Made JESSICA Adkins aware.
--- NOTE | 2022-11-02 13:27 | NUR ---
NOTIFIED ED ADMITTING, STEVE REGARDING DR. LATHAM'S REQUEST FOR ADMISSION. PER DR. LATHAM, PT IS NOT STABLE FOR TRANSFER. WILL CONTACT [employer]AT CABINET ATTENDANT REGARDING THIS MATTER. PER [facility]: ANNIE ALCALA
--- NOTE | 2022-11-02 13:28 | NUR ---
Levophed started 0.1 MCG/KG.MIN for persistent hypotension
--- NOTE | 2022-11-02 13:41 | NUR ---
Admit bed requested Patient will be admitted to care of Ronni Anderson Admitted to ICU unit. Diagnosis ACUTE RESP FAILURE Inpatient (Yes or No) Y Observation (Yes or No) N Orientation concerns or request close to nursing station (Yes or No) N Covid Status On vent or bipap YES Isolation requirements NO Needs a sitter NO From Home (Yes or if No enter name of facility) [facility] Requires Dialysis (Yes or No) NO Med Rec Completed (Yes of No) YES
[2022-11-02 13:44] LABS: BASOPHILS % (AUTO) 0.1 % (0.0-2.0); LYMPHOCYTES # (AUTO) 0.4 K/uL (1.0-5.5); LYMPHOCYTES % (AUTO) 4.8 % (20.5-51.5); MEAN CORPUSCULAR HEMOGLOBIN 31 pg (27-31); MEAN CORPUSCULAR HGB CONC 33 % (32-36); MEAN CORPUSCULAR VOLUME 93 fL (79.0-98.0); MONOCYTES # (AUTO) 0.3 K/uL (0.0-1.0); MONOCYTES % (AUTO) 3.8 % (1.7-9.3); NEUTROPHILS # (AUTO) 6.9 K/uL (1.8-7.7); NEUTROPHILS % (AUTO) 91.3 % (40.0-70.0); PLATELET COUNT (AUTO) 443 K/uL (130-430); RED BLOOD CELL COUNT(AUTO) 2.13 MIL/uL (4.2-6.2); RED CELL DISTRIBUTION WIDTH 15.1 % (9.0-15.0); WHITE BLOOD COUNT (AUTO) 7.6 K/uL (4.8-10.8)
[2022-11-02 13:50] LABS: HEMATOCRIT 19.9 % (36-48); HEMOGLOBIN 6.5 g/dL (12.0-16.0)
[2022-11-02 14:02] LABS: INR 1.2 (0.8-1.2); PROTHROMBIN TIME 12.6 SECS (9.5-12.5)
--- NOTE | 2022-11-02 14:08 | NUR ---
DIONI ALCALA IS REQEUSTING [facility] FAX: [phone] ATTN: LATHA
[2022-11-02] MEDS ORDERED: VANCOMYCIN HCL 1000 MG/VIAL IV ONE (14:09)
[2022-11-02 14:21] LABS: ANION GAP 1 (5-15); CALCIUM 7.3 mg/dL (8.4-11.0); CHLORIDE 102 mmol/L (98-107); CREATININE 0.54 mg/dL (0.55-1.30); GLUCOSE 97 mg/dL (70-99); UREA NITROGEN, BLOOD 20 mg/dL (8-21)
[2022-11-02] MEDS ORDERED: MAGNESIUM SULFATE 50 ML IV PRN (14:30)
[2022-11-02] MEDS ORDERED: ZOLPIDEM TARTRATE 5 MG TABLET PO PRN (14:30)
[2022-11-02] MEDS ORDERED: ONDANSETRON HCL 4 MG/2 ML VIAL IVP PRN (14:30)
[2022-11-02] MEDS ORDERED: DOCUSATE SODIUM 100 MG CAPSULE PO PRN (14:30)
[2022-11-02] MEDS ORDERED: NALOXONE HCL 0.4 MG/ML AMP (NARCAN) IVP PRN ×2 (14:30)
[2022-11-02] MEDS: D5NS 1,000 ML IV SCH (14:30)
[2022-11-02] MEDS ORDERED: MUPIROCIN 2% TOPICAL OINTMENT 22 GM NS PRN (14:30)
[2022-11-02] MEDS ORDERED: LORazepam 2 MG/ML VIAL IVP PRN (14:30)
--- NOTE | 2022-11-02 14:30 | NUR ---
Levophed increased to 0.2 MCG/KG/MIN for persistent low BP
[2022-11-02 14:39] LABS: ALANINE AMINOTRANSFERASE 13 U/L (12-78); ASPARTATE AMINOTRANSFERASE 21 U/L (10-37); C-REACTIVE PROTEIN QUANT 11.5 mg/dL (0-0.5); TOTAL BILIRUBIN 0.1 mg/dL (0.0-1.0)
[2022-11-02] MEDS ORDERED: PANTOPRAZOLE SODIUM 40 MG/VIAL (PROTONIX) IVP ONE (15:00)
--- NOTE | 2022-11-02 15:27 | NUR ---
Propofol started at this time, pt sedated, BP maintained with Levophed 0.2 MCG,KG/MIN
--- NOTE | 2022-11-02 15:45 | NUR ---
Patient will be admitted to care of Dr Horta . Admitted to ICU unit. Will go to room 06. Complete and up to date summary report printed. SBAR report to be given at bedside with opportunity for questions. Report given to Vinay LOPEZ
--- NOTE | 2022-11-02 15:50 | NUR ---
RT NOTE: 1550 Patient transferred from ER 1 with ambu bag and e-tank at 15LPM. Tolerated transfer well. No issues. Addendum: 11/02/22 at 1634 by Cindy Mello RT Amended: Links added.
[2022-11-02] MEDS ORDERED: CALCIUM CHLORIDE 1 GM/10 ML DISP.SYRIN (14 mEq Ca++/SYR) IV ONE (19:45)
[2022-11-02] MEDS: MIDAZOLAM IN NACL,ISO-OSMOT/PF 100 ML IV PRN (20:44)
[2022-11-02] MEDS: FENTANYL CITRATE-0.9 % NACL/PF 100 ML IV PRN (20:45)
[2022-11-02] MEDS: NOREPINEPHRINE BITARTRATE 4 MG in NS 246 ML IV PRN (20:48)
[2022-11-02] MEDS: ALBUMIN HUMAN 25% 100 ML IV SCH (20:48)
[2022-11-02] MEDS: LevETIRAcetam 500 MG/5 ML UDC ORAL LIQUID PO SCH (20:49)
[2022-11-02] MEDS: MEROPENEM 500 MG in NS 50 ML IV SCH (20:49)
[2022-11-02] MEDS: PANTOPRAZOLE SODIUM 40 MG/VIAL (PROTONIX) IVP SCH (20:50)
[2022-11-03] VITALS (34 sets, daily range): BP systolic 100–141
[2022-11-03] MEDS: D5NS 1,000 ML IV SCH ×2 (00:25→06:46)
[2022-11-03] MEDS: ALBUMIN HUMAN 25% 100 ML IV SCH ×2 (01:59→08:22)
[2022-11-03] MEDS: MEROPENEM 500 MG in NS 50 ML IV SCH ×3 (04:07→21:40)
[2022-11-03] MEDS: LevETIRAcetam 500 MG/5 ML UDC ORAL LIQUID PO SCH ×3 (04:07→21:40)
[2022-11-03 06:13] LABS: BASOPHILS # (AUTO) 0.1 K/uL (0.0-0.2); BASOPHILS % (AUTO) 1.6 % (0.0-2.0); EOSINOPHILS # (AUTO) 0.1 K/uL (0.0-0.4); EOSINOPHILS % (AUTO) 1.7 % (0.0-4.0); HEMATOCRIT 23.8 % (36-48); HEMOGLOBIN 8.1 g/dL (12.0-16.0); LYMPHOCYTES # (AUTO) 0.5 K/uL (1.0-5.5); LYMPHOCYTES % (AUTO) 10.9 % (20.5-51.5); MEAN CORPUSCULAR HEMOGLOBIN 31 pg (27-31); MEAN CORPUSCULAR HGB CONC 34 % (32-36); MEAN CORPUSCULAR VOLUME 92 fL (79.0-98.0); MONOCYTES # (AUTO) 0.2 K/uL (0.0-1.0); MONOCYTES % (AUTO) 3.8 % (1.7-9.3); NEUTROPHILS # (AUTO) 3.9 K/uL (1.8-7.7); PLATELET COUNT (AUTO) 371 K/uL (130-430); WHITE BLOOD COUNT (AUTO) 4.8 K/uL (4.8-10.8)
[2022-11-03 06:32] LABS: ANION GAP 5 (5-15); CALCIUM 8.3 mg/dL (8.4-11.0); CHLORIDE 104 mmol/L (98-107); CREATININE 0.44 mg/dL (0.55-1.30); GLUCOSE 100 mg/dL (70-99); UREA NITROGEN, BLOOD 18 mg/dL (8-21)
[2022-11-03] MEDS: POTASSIUM CHLORIDE 20 MEQ TAB.PRT.SR PO PRN (06:45)
[2022-11-03] MEDS: PANTOPRAZOLE SODIUM 40 MG/VIAL (PROTONIX) IVP SCH ×2 (08:22→21:40)
[2022-11-03] MEDS ORDERED: DIATR MEGLU/DIATRIZ SOD 30 ML SOLUTION PO ONE (08:27)
[2022-11-03] MEDS ORDERED: MAGNESIUM SULFATE 1 GM in NS 100 ML IV ONE (08:45)
[2022-11-03] MEDS ORDERED: POTASSIUM CHLORIDE 40 MEQ, LIDOCAINE JECT 2% PF 100 MG 50 MG in NS 250 ML IV ONE (08:45)
--- NOTE | 2022-11-03 11:23 | NUR ---
Dietitian Recommendations * If/when medically appropriate, consider EN support first versus TPN/PPN route within 1-2 days to promote gut integrity - Vital AF 1.2 at 35 ml/hr (goal rate), Free Water Flush: 100 ml Q6h via OGT Provides: 1260 kcal/day, 57 gm protein/day, and 1042 ml free water/day Meets: 122% of estimated caloric needs, 88% of lower end of estimated protein needs, and 104% of estimated fluid needs LP, MS, RD Please refer to Nutrition Assessment for details. Addendum: 11/03/22 at [address] Amended: Links added.
[2022-11-03] MEDS: FENTANYL CITRATE-0.9 % NACL/PF 100 ML IV PRN (13:44)
[2022-11-03] MEDS ORDERED: VANCOMYCIN HCL 1,000 MG in NS 250 ML IV SCH (15:00)
[2022-11-04] VITALS (31 sets, daily range): BP systolic 108–147
[2022-11-04 05:36] LABS: BASOPHILS % (AUTO) 0.3 % (0.0-2.0); HEMATOCRIT 27.2 % (36-48); HEMOGLOBIN 9.1 g/dL (12.0-16.0); LYMPHOCYTES # (AUTO) 0.5 K/uL (1.0-5.5); LYMPHOCYTES % (AUTO) 11.8 % (20.5-51.5); MEAN CORPUSCULAR HEMOGLOBIN 31 pg (27-31); MEAN CORPUSCULAR HGB CONC 33 % (32-36); MEAN CORPUSCULAR VOLUME 93 fL (79.0-98.0); MONOCYTES # (AUTO) 0.2 K/uL (0.0-1.0); MONOCYTES % (AUTO) 3.7 % (1.7-9.3); NEUTROPHILS # (AUTO) 3.6 K/uL (1.8-7.7); NEUTROPHILS % (AUTO) 83.2 % (40.0-70.0); PLATELET COUNT (AUTO) 361 K/uL (130-430); RED BLOOD CELL COUNT(AUTO) 2.94 MIL/uL (4.2-6.2); RED CELL DISTRIBUTION WIDTH 14.4 % (9.0-15.0); WHITE BLOOD COUNT (AUTO) 4.3 K/uL (4.8-10.8)
[2022-11-04] MEDS: MIDAZOLAM IN NACL,ISO-OSMOT/PF 100 ML IV PRN (05:41)
[2022-11-04 05:54] LABS: ANION GAP 4 (5-15); CALCIUM 7.5 mg/dL (8.4-11.0); CHLORIDE 110 mmol/L (98-107); CREATININE 0.42 mg/dL (0.55-1.30); GLUCOSE 108 mg/dL (70-99); UREA NITROGEN, BLOOD 17 mg/dL (8-21)
[2022-11-04] MEDS: MEROPENEM 500 MG in NS 50 ML IV SCH ×3 (06:41→21:41)
[2022-11-04] MEDS: LevETIRAcetam 500 MG/5 ML UDC ORAL LIQUID PO SCH ×3 (06:41→21:40)
[2022-11-04] MEDS: PANTOPRAZOLE SODIUM 40 MG/VIAL (PROTONIX) IVP SCH ×2 (08:28→21:40)
[2022-11-04] MEDS: POTASSIUM CHLORIDE 20 MEQ TAB.PRT.SR PO PRN (08:28)
--- NOTE | 2022-11-04 09:00 | NUR ---
ORAL CONTRAST GIVEN VIA OG TUBE, CONSENT SIGNED BY DAUGHTER AT BEDSIDE FOR CT SCAN OF ABD.
--- NOTE | 2022-11-04 09:48 | NUR ---
RECEIVED PATIENT IN BED INTUBATED , VENT TO ETT, SETTING: AC/20 TV 400 30% FIO2 PEEP 5 , OG TUBE IS CLAMPED . SEDATED WITH VERSED 3 MG/HR, FENTANYL 75 MCG/HR, AND IVF D5NS AT 100 ML/HR INFUSED AT [facility] , SITE INTACT, F/C IN PLACE DRAINING TO GRAVITY, ON ICU MONITOR.
--- NOTE | 2022-11-04 10:30 | NUR ---
RT NOTES 1030 MD Jalloh did bedside CPAP trial (cpap 5, ps12) pt went apneic immediately. Per MD Titrate sedations and daily cpap trial. will cont to monitor pt. Will try CPAP again later the day, will coordinate with the RN.
--- NOTE | 2022-11-04 10:31 | NUR ---
SEEN BY DR MCDERMOTT, DECREASE VERSED TO 2 AND FENTANYL 50, WILL DO CPAP TRIAL PER DR MCDERMOTT BY RT.
[2022-11-04] MEDS ORDERED: iohexoL 240 mgI/mL, 50 ML INFUS..BTL IV ONE (11:25)
--- NOTE | 2022-11-04 11:25 | NUR ---
RT NOTE: [address] for abdominal scan at this time. No issues during transport to and from CT.
--- NOTE | 2022-11-04 12:45 | NUR ---
rt notes 1245 RN still working on titrating pt sedations for CPAP trial. RT did try pt on CPAP 5, PS12 - Pt went apneic immediately. Tried coaching, arousing pt. still no spontaneous chest rise/VT seen. will try again later on. will cont to monitor pt.
--- NOTE | 2022-11-04 15:10 | NUR ---
Wound care nurse in to see pt and evaluate skin. Photos taken but did not capture on camera. Wound care nurse assisted with photos and printed some out, but they are not the photos that were taken of the pt. Bedside RN instructed to endorse to night shift supervisor to retake the photos.
--- NOTE | 2022-11-04 15:21 | NUR ---
Wound Evaluation: Wound Consult ordered for Low Pedro Score. Patient evaluated for a low Pedro score of 12. Patient was sedated, intubated, on ventilator, and received in a [facility] Bed with a low air-loss mattress. Patient needs to be turned in bed. Skin assessment: 1. Upper Back: Upper back near spinal levels C6-T6 has blanchable redness, present on admission. No odor, no drainage. Area is not soft or boggy. Skin is intact. Recommend: Cover site with foam dressing for protection. Reposition patient side to side only every 2 hours with 1 pillow underneath trunk and 1 pillow underneath pelvis bilaterally (use an additional pillow to facilitate turning side to side every 2 hours). 2. Sacral-Coccygeal/Buttocks areas: Blanchable redness from IAD. No odor, no drainage. Area is not soft or boggy. Skin is intact. Recommend: Cleanse soiled areas with mild soap and water. Gently pat dry. Apply moisture barrier cream to the previously soiled areas. Cover site with Sacral foam dressing for protection. Reposition patient side to side only every 2 hours with 1 pillow underneath trunk and 1 pillow underneath pelvis bilaterally (use an additional pillow to facilitate turning side to side every 2 hours). Recommend reposition patient side to side only every 2 hours with 1 pillow underneath trunk and 1 pillow underneath pelvis bilaterally (use an additional pillow to facilitate turning side to side every 2 hours). Elevate, off-load and float bilateral heels with 1 pillow lengthwise under each extremity at all times. Offload pressure areas with pillows for pressure re-distribution. Perform skin care and monitor skin integrity Q shift. Use moisture barrier cream on moisture susceptible areas QID and PRN for soiling. Maintain patient on a low air-loss mattress.
--- NOTE | 2022-11-04 17:52 | NUR ---
called consult for Dr. Sheth ordered yesterday and spoke with Ruthie.
[2022-11-04] MEDS: FENTANYL CITRATE-0.9 % NACL/PF 100 ML IV PRN (18:37)
[2022-11-04] MEDS: D5NS 1,000 ML IV SCH (18:37)
[2022-11-04] MEDS: metroNIDAZOLE 500 mg/NS 100 ML IV SCH (21:40)
[2022-11-05] VITALS (34 sets, daily range): BP systolic 109–153
[2022-11-05 05:26] LABS: BASOPHILS % (AUTO) 0.5 % (0.0-2.0); EOSINOPHILS % (AUTO) 0.5 % (0.0-4.0); HEMATOCRIT 28.5 % (36-48); HEMOGLOBIN 9.5 g/dL (12.0-16.0); LYMPHOCYTES # (AUTO) 0.4 K/uL (1.0-5.5); LYMPHOCYTES % (AUTO) 9.9 % (20.5-51.5); MEAN CORPUSCULAR HEMOGLOBIN 31 pg (27-31); MEAN CORPUSCULAR HGB CONC 33 % (32-36); MEAN CORPUSCULAR VOLUME 92 fL (79.0-98.0); MONOCYTES # (AUTO) 0.2 K/uL (0.0-1.0); MONOCYTES % (AUTO) 3.6 % (1.7-9.3); NEUTROPHILS # (AUTO) 3.7 K/uL (1.8-7.7); NEUTROPHILS % (AUTO) 85.5 % (40.0-70.0); PLATELET COUNT (AUTO) 307 K/uL (130-430); RED BLOOD CELL COUNT(AUTO) 3.09 MIL/uL (4.2-6.2); RED CELL DISTRIBUTION WIDTH 14.8 % (9.0-15.0); WHITE BLOOD COUNT (AUTO) 4.3 K/uL (4.8-10.8)
[2022-11-05 05:42] LABS: ANION GAP 4 (5-15); CALCIUM 7.1 mg/dL (8.4-11.0); CHLORIDE 111 mmol/L (98-107); GLUCOSE 102 mg/dL (70-99); UREA NITROGEN, BLOOD 16 mg/dL (8-21)
[2022-11-05] MEDS: MEROPENEM 500 MG in NS 50 ML IV SCH ×3 (05:55→21:54)
[2022-11-05] MEDS: LevETIRAcetam 500 MG/5 ML UDC ORAL LIQUID PO SCH ×3 (05:56→21:54)
[2022-11-05] MEDS: metroNIDAZOLE 500 mg/NS 100 ML IV SCH ×2 (08:47→21:53)
[2022-11-05] MEDS: PANTOPRAZOLE SODIUM 40 MG/VIAL (PROTONIX) IVP SCH ×2 (08:48→21:53)
--- NOTE | 2022-11-05 09:55 | NUR ---
RT NOTES Coordinated with JESSICA Meehan, vent to cpap 5 ps 12. Pt is arousable, made aware of SBT, nodded appropriately, but became tachypneic as soon as vent changes were made. Pt was coached and encouraged to slow breathing down, to no avail. Stayed with pt for 5 minutes, respiration did not improve. H.R increased from 101 to 113. RR mid to high 30s. Spont. Vt < 150. Vent back to previous settings. Rn made aware.
[2022-11-05] MEDS ORDERED: *TPN PER PHARMACY XX PRN (10:15)
[2022-11-05] MEDS ORDERED: PHYTONADIONE 10 MG/ML AMP SUBCUT ONE (15:00)
--- NOTE | 2022-11-05 19:05 | NUR ---
End of Shift Summary: Patient has had many visitors during the day (10 family members) and was awake and alert at times communicating with family and some physicians that came to evaluate patient today. Patient is sleeping deeply with no signs or symptoms of acute distress at the end of the shift.
[2022-11-05] MEDS ORDERED: FUROSEMIDE 40 MG/4 ML VIAL IVP ONE (19:15)
[2022-11-06] VITALS (34 sets, daily range): BP systolic 98–135
[2022-11-06 05:50] LABS: BASOPHILS % (AUTO) 0.5 % (0.0-2.0); EOSINOPHILS % (AUTO) 0.6 % (0.0-4.0); HEMATOCRIT 34.9 % (36-48); HEMOGLOBIN 11.5 g/dL (12.0-16.0); LYMPHOCYTES # (AUTO) 0.5 K/uL (1.0-5.5); LYMPHOCYTES % (AUTO) 13.2 % (20.5-51.5); MEAN CORPUSCULAR HEMOGLOBIN 30 pg (27-31); MEAN CORPUSCULAR HGB CONC 33 % (32-36); MEAN CORPUSCULAR VOLUME 93 fL (79.0-98.0); MONOCYTES # (AUTO) 0.2 K/uL (0.0-1.0); MONOCYTES % (AUTO) 4.6 % (1.7-9.3); NEUTROPHILS % (AUTO) 81.1 % (40.0-70.0); PLATELET COUNT (AUTO) 252 K/uL (130-430); RED BLOOD CELL COUNT(AUTO) 3.77 MIL/uL (4.2-6.2); RED CELL DISTRIBUTION WIDTH 14.8 % (9.0-15.0); WHITE BLOOD COUNT (AUTO) 3.7 K/uL (4.8-10.8)
[2022-11-06 06:35] LABS: ALANINE AMINOTRANSFERASE 11 U/L (12-78); ALBUMIN 1.8 g/dL (3.4-4.8); ANION GAP 7 (5-15); ASPARTATE AMINOTRANSFERASE 26 U/L (10-37); CALCIUM 7.4 mg/dL (8.4-11.0); CHLORIDE 107 mmol/L (98-107); CREATININE 0.42 mg/dL (0.55-1.30); GLUCOSE 140 mg/dL (70-99); TOTAL BILIRUBIN 0.4 mg/dL (0.0-1.0); TRIGLYCERIDES 67 mg/dL (30-150); UREA NITROGEN, BLOOD 18 mg/dL (8-21)
[2022-11-06] MEDS: MEROPENEM 500 MG in NS 50 ML IV SCH ×3 (07:19→21:00)
[2022-11-06] MEDS: LevETIRAcetam 500 MG/5 ML UDC ORAL LIQUID PO SCH ×3 (07:20→21:01)
[2022-11-06] MEDS: metroNIDAZOLE 500 mg/NS 100 ML IV SCH ×2 (09:04→20:47)
[2022-11-06] MEDS: PANTOPRAZOLE SODIUM 40 MG/VIAL (PROTONIX) IVP SCH ×2 (09:04→20:47)
--- NOTE | 2022-11-06 11:59 | NUR ---
Patient has been reating throughout the shift. Vital signs stable and patient is responding with nods when approached. Patient had difficulty with CPAP trail today. Managed to tolerate trial today for 8 minutes. Otherwise, patient has been resting without visitors at this time.
--- NOTE | 2022-11-06 13:17 | NUR ---
Nutrition F/U RD reviewed pts current EMR including diet hx, physician notes, nursing notes, pertinent labs/meds/procedures, care trends and care activity. Subjective Information Nutrition Consult recd 11/04/22 @ 0533 for low pedro score of 12. RD rounded to ICU and s/w RN, Zoran, regarding the pt. He reports that pt is tolerating TF well- no GRV; pt is at goal rate; no GI issues. Zoran states that pt has flexiseal but the stool seems to be more formed. He was wondering if the rate was correct because it seems too low; RD said she would reevaluate. RD called ICU and relayed the new goal rate rec.Per EMR review: abd distended, firm w/ hypoactive bowel sounds; Pedro 11 w/ erythema on sacrum and upper back. Pt is likely meeting nutritional needs at this time. Current Diet Order/Nutrition Support Vital AF 1.2 @ 35 mL/hr, FWF 100mL q6h via OGT x 2 days % PO intake N/A Last BM 11/05 x 1. Pt has flexiseal per RN New Estimated Energy Expenditure (kcals/day) 1216 (PSU d/t critical illness, intubated; MSJ: 942 Ve: 10.2; Tmax: 37.17'C) Estimated Protein Required (g/day) 65-100 (1.3-2 gm/kg CBW d/t critical illness, hypermetabolic state) Estimated Fluid Required (l/day) 1.2 (1 ml/kcal/day for GERIAT maintenance) Problem/Etiology/Signs/Symptoms Complicated GI function R/T pathophysiological factors AEB H/H 8.1L/23.8L and further GI workup. *labs improving Inadequate nutrient intakes R/T critical illness AEB no current nutrition support. *improving Expected Outcomes/Goals - Monitor provision of nutrition support w/ goal of pt meeting at least 50% of estimated nutritional needs, labs trending WNL, normal GI function, and skin integrity/wt maintenance Dietitian Recommendations *Increased rate: Vital AF 1.2 at 45 ml/hr (goal rate), Free Water Flush: 100 ml Q6h via OGT Provides: 1296 kcal/day, 81 gm protein/day, and 1276 ml free water/day Meets: 107% of estimated caloric needs, 125% of lower end of estimated protein needs, and 106% of estimated fluid needs *If/when pt is extubated, please contact RD to re-assess nutrient needs Follow up *Moderate risk: see pt in 3-5 days ISAIAH, MPH, RD
--- NOTE | 2022-11-06 13:19 | NUR ---
Dietitian Recommendations *Increased rate: Vital AF 1.2 at 45 ml/hr (goal rate), Free Water Flush: 100 ml Q6h via OGT Provides: 1296 kcal/day, 81 gm protein/day, and 1276 ml free water/day Meets: 107% of estimated caloric needs, 125% of lower end of estimated protein needs, and 106% of estimated fluid needs *If/when pt is extubated, please contact RD to re-assess nutrient needs GS, MPH, RD Please refer to Nutrition F/U for further details. Thanks!
[2022-11-06] MEDS: POTASSIUM CHLORIDE 20 MEQ/PKT PACKET PO PRN (13:28)
[2022-11-06] MEDS: MORPHINE 2 MG/ML INJ. SYRINGE IVP PRN (14:21)
[2022-11-06] MEDS ORDERED: FUROSEMIDE 40 MG/4 ML VIAL IVP ONE (17:45)
--- NOTE | 2022-11-06 18:27 | NUR ---
End of Shift Summary: Patient has been calm throughout the shift. Patient had several visitors in the afternoon and they indicated to nurse that patient stated that she was having generalized pain. Patient was given morphine and showed signs of improved pain. Otherwise, no issues noted today.
[2022-11-07] VITALS (36 sets, daily range): BP systolic 95–118
[2022-11-07] MEDS: MEROPENEM 500 MG in NS 50 ML IV SCH (05:23)
[2022-11-07] MEDS: LevETIRAcetam 500 MG/5 ML UDC ORAL LIQUID PO SCH ×3 (05:23→21:03)
[2022-11-07 05:50] LABS: BASOPHILS % (AUTO) 0.4 % (0.0-2.0); EOSINOPHILS % (AUTO) 0.6 % (0.0-4.0); HEMATOCRIT 28.3 % (36-48); HEMOGLOBIN 9.3 g/dL (12.0-16.0); LYMPHOCYTES # (AUTO) 0.8 K/uL (1.0-5.5); LYMPHOCYTES % (AUTO) 20.9 % (20.5-51.5); MEAN CORPUSCULAR HEMOGLOBIN 30 pg (27-31); MEAN CORPUSCULAR HGB CONC 33 % (32-36); MEAN CORPUSCULAR VOLUME 92 fL (79.0-98.0); MONOCYTES # (AUTO) 0.2 K/uL (0.0-1.0); MONOCYTES % (AUTO) 5.1 % (1.7-9.3); NEUTROPHILS # (AUTO) 2.7 K/uL (1.8-7.7); PLATELET COUNT (AUTO) 196 K/uL (130-430); RED BLOOD CELL COUNT(AUTO) 3.07 MIL/uL (4.2-6.2); WHITE BLOOD COUNT (AUTO) 3.7 K/uL (4.8-10.8)
[2022-11-07 06:34] LABS: ANION GAP 4 (5-15); CHLORIDE 110 mmol/L (98-107); CREATININE 0.38 mg/dL (0.55-1.30); GLUCOSE 149 mg/dL (70-99); UREA NITROGEN, BLOOD 21 mg/dL (8-21)
[2022-11-07 06:36] LABS: CALCIUM 6.6 mg/dL (8.4-11.0)
--- NOTE | 2022-11-07 07:54 | NUR ---
rt notes 0754 placed pt on CPAP 5, PS12 30% FIO2. Pt spon RR 21, VT 298. Pt saturating 100%, HR 71, Pt awake/alert. will cont to monitor pt. JESSICA Meehan made aware.
[2022-11-07] MEDS ORDERED: CALCIUM CARBONATE 650 MG TABLET PO SCH (09:00)
--- NOTE | 2022-11-07 09:40 | NUR ---
rt notes 0940 Pt back on AC 20 due to BP dropped, pt lasted almost 2 hours on CPAP. no distress noted. will cont to monitor pt. RN made aware.
[2022-11-07] MEDS: metroNIDAZOLE 500 mg/NS 100 ML IV SCH ×2 (09:54→21:02)
[2022-11-07] MEDS: PANTOPRAZOLE SODIUM 40 MG/VIAL (PROTONIX) IVP SCH ×2 (09:57→21:03)
[2022-11-07] MEDS: CALCIUM 500 MG/TAB PO SCH (09:59)
[2022-11-07] MEDS: POTASSIUM CHLORIDE 20 MEQ/PKT PACKET PO PRN (10:05)
[2022-11-07] MEDS: MORPHINE 2 MG/ML INJ. SYRINGE IVP PRN (10:11)
[2022-11-07] MEDS: ERTAPENEM SODIUM 1 GM in NS 50 ML IV SCH (12:22)
--- NOTE | 2022-11-07 17:59 | NUR ---
End of Shift Summary: Patient has been calm and without major concerns throughout the shift. Patient had visit from daughter this morning and all care was given. Patient is responsive to RN and daughter, she indicated that she was somewhat uncomfortable. Pain medicine was given and patient indicated that pain had subsided. Patient slept throughout the afternoon after CPAP trial which was much better today than during the weekend. Patient remains on same vent settings and has no problems at this time. Patient has visitor at the end of the shift and seems alert and aware when visiting with guest at this time.
--- NOTE | 2022-11-07 19:30 | NUR ---
RECEIVED AAO X2, QUIET AND FOLLOWS COMMANDS. PATIENT IS ORALLY INTUBATED, AC 20, TV 400, FIO2 30%, PEEP 5. SAT 95%. WELT TRIMMING MACHINE OPERATOR IS SHOWING NSR, DENIES CHEST PAIN. PRECEDEX DRIP IS INFUSING AT 0.4 MCG/KG/HR ON THE [facility] DOUBLE LUMEN PICC. ABDOMEN IS SOFT AND NON-DISTENDED. LEFT NARE NGT FEEDING OF PIVOT AT 45 ML/HR. RESIDUAL 5 ML. FLEXISEAL INTACT, DRAINING LOOSE BROWN STOOLS. HOOK INTACT AND PATENT, DRAINING WELL TO ELIGIO COLOR URINE. AFEBRILE.
[2022-11-08] VITALS (35 sets, daily range): BP systolic 104–133
[2022-11-08 05:30] LABS: BASOPHILS % (AUTO) 0.4 % (0.0-2.0); EOSINOPHILS % (AUTO) 0.6 % (0.0-4.0); HEMATOCRIT 31.2 % (36-48); HEMOGLOBIN 10.3 g/dL (12.0-16.0); LYMPHOCYTES # (AUTO) 0.8 K/uL (1.0-5.5); LYMPHOCYTES % (AUTO) 22.6 % (20.5-51.5); MEAN CORPUSCULAR HEMOGLOBIN 30 pg (27-31); MEAN CORPUSCULAR HGB CONC 33 % (32-36); MEAN CORPUSCULAR VOLUME 92 fL (79.0-98.0); MONOCYTES # (AUTO) 0.2 K/uL (0.0-1.0); MONOCYTES % (AUTO) 5.9 % (1.7-9.3); NEUTROPHILS # (AUTO) 2.4 K/uL (1.8-7.7); NEUTROPHILS % (AUTO) 70.5 % (40.0-70.0); PLATELET COUNT (AUTO) 220 K/uL (130-430); RED BLOOD CELL COUNT(AUTO) 3.39 MIL/uL (4.2-6.2); WHITE BLOOD COUNT (AUTO) 3.4 K/uL (4.8-10.8)
[2022-11-08] MEDS: LevETIRAcetam 500 MG/5 ML UDC ORAL LIQUID PO SCH ×3 (05:33→20:55)
[2022-11-08 05:52] LABS: ALANINE AMINOTRANSFERASE 14 U/L (12-78); ALBUMIN 1.4 g/dL (3.4-4.8); ANION GAP 6 (5-15); ASPARTATE AMINOTRANSFERASE 31 U/L (10-37); CHLORIDE 111 mmol/L (98-107); CREATININE 0.36 mg/dL (0.55-1.30); GLUCOSE 135 mg/dL (70-99); TOTAL BILIRUBIN 0.2 mg/dL (0.0-1.0); UREA NITROGEN, BLOOD 25 mg/dL (8-21)
--- NOTE | 2022-11-08 07:22 | NUR ---
RT NOTES 0722 PLACED PT ON CPAP, PT ONLY LASTED 5 MINUTES, PT SPON RR 38. WILL TRY CPAP ON PT LATER THE DAY AGAIN. RN MADE AWARE.
[2022-11-08] MEDS: PANTOPRAZOLE SODIUM 40 MG/VIAL (PROTONIX) IVP SCH ×2 (08:50→20:54)
[2022-11-08] MEDS: metroNIDAZOLE 500 mg/NS 100 ML IV SCH ×2 (08:51→20:53)
--- NOTE | 2022-11-08 09:00 | NUR ---
FAMILY PT'S DAUGHTER CALLED UP ON THE PHONE, UPDATED HER ON THE STATUS. MADE PT AWARE OF THE CONVERSATION WITH HER DAUGHTER AFTER SPEAKING TO HER DAUGHTER, FAMILY PLANS TO COME VISIT HER IN THE LATE AFTERNOON.
[2022-11-08] MEDS: CALCIUM 500 MG/TAB PO SCH (09:21)
--- NOTE | 2022-11-08 13:39 | NUR ---
RT NOTES 1302 PLACED PT ON CPAP 5, PS12 AGAIN, PT RR 36-38. PT PULLING ADEQUATE VOLUME, WILL GIVE PT TIME TO ADJUST. WILL CONT TO MONITOR PT. 1339 PT BACK TO AC 20, PT STARTED TO GET TACHYCARDIC - 129. PT SATURATING 94%. RN JAKE MADE AWARE. PT LASTED 37 MINS ON CPAP TODAY. WILL TRY CPAP AGAIN TOMORROW.
[2022-11-08] MEDS: ERTAPENEM SODIUM 1 GM in NS 50 ML IV SCH (13:51)
--- NOTE | 2022-11-08 14:00 | NUR ---
TACHYCARDIA PT ALERT, ASSESSED FOR PAIN, TEMP RECHECKED, 101.7. ADMINISTERED TYLENOL 325 MG TAB VIA OGT. BEDBATH PROVIDED TO HELP BRING FEVER DOWN. REPOSITIONED TO HER SIDE Q2H. ELEVATED EXTREMITIES ON PILLOW.
[2022-11-08] MEDS: ACETAMINOPHEN 325 MG TABLET PO PRN (14:10)
--- NOTE | 2022-11-08 17:59 | NUR ---
FAMILY PT'S SON AT BEDSIDE, EUNICE, GIVEN UPDATE ON STATUS OF THE PATIENT.
[2022-11-09] VITALS (32 sets, daily range): BP systolic 86–132
[2022-11-09 05:31] LABS: BASOPHILS % (AUTO) 0.2 % (0.0-2.0); EOSINOPHILS % (AUTO) 0.4 % (0.0-4.0); HEMATOCRIT 28.4 % (36-48); HEMOGLOBIN 9.3 g/dL (12.0-16.0); LYMPHOCYTES # (AUTO) 1.1 K/uL (1.0-5.5); LYMPHOCYTES % (AUTO) 22.7 % (20.5-51.5); MEAN CORPUSCULAR HEMOGLOBIN 30 pg (27-31); MEAN CORPUSCULAR HGB CONC 33 % (32-36); MEAN CORPUSCULAR VOLUME 91 fL (79.0-98.0); MONOCYTES # (AUTO) 0.2 K/uL (0.0-1.0); MONOCYTES % (AUTO) 3.7 % (1.7-9.3); NEUTROPHILS # (AUTO) 3.4 K/uL (1.8-7.7); PLATELET COUNT (AUTO) 197 K/uL (130-430); RED BLOOD CELL COUNT(AUTO) 3.11 MIL/uL (4.2-6.2); RED CELL DISTRIBUTION WIDTH 14.9 % (9.0-15.0); WHITE BLOOD COUNT (AUTO) 4.7 K/uL (4.8-10.8)
[2022-11-09] MEDS: LevETIRAcetam 500 MG/5 ML UDC ORAL LIQUID PO SCH ×2 (05:46→16:18)
[2022-11-09 05:58] LABS: ANION GAP 5 (5-15); CHLORIDE 113 mmol/L (98-107); CREATININE 0.35 mg/dL (0.55-1.30); GLUCOSE 110 mg/dL (70-99); UREA NITROGEN, BLOOD 27 mg/dL (8-21)
--- NOTE | 2022-11-09 07:57 | NUR ---
RT NOTES Dr Malik is also rounding, made aware that pt becomes tachypneic during cpap trials. did not think nicotine will benefit pt, stated pt likely breathes "this way". Coordinated with APOLLO Rodriguez, Vent to CPAP 5 PS 12, almost immediately, R.R went up to high 30s (36-38) to low 40s (41-42). No improvement noted despite re-education and reassurance. @0808 H.R 93, significant increased from before SBT. Vent back to AC. Will try again later. Apollo Rodriguez aware.
--- NOTE | 2022-11-09 09:20 | NUR ---
RT NOTES cpap Pt became tachypneic (high 30s-40s)as soon as second attempt for CPAP was done. Recommended a slight increase in precedex might help with SBT. @0930, R.R 33, H.R did not increase, no distress noted, pt resting comfortably. Will monitor pt.
[2022-11-09] MEDS ORDERED: IPRATROPIUM/ALBUTEROL SULFATE 3 ML AMPUL.NEB (DUONEB) INH PRN (10:00)
[2022-11-09] MEDS: metroNIDAZOLE 500 mg/NS 100 ML IV SCH (10:26)
[2022-11-09] MEDS: MORPHINE 2 MG/ML INJ. SYRINGE IVP PRN (10:27)
[2022-11-09] MEDS: methylPREDNISolone SOD SUCC/PF 62.5 MG/ML VIAL IVP SCH (10:27)
[2022-11-09] MEDS: PANTOPRAZOLE SODIUM 40 MG/VIAL (PROTONIX) IVP SCH (10:28)
[2022-11-09] MEDS: CALCIUM 500 MG/TAB PO SCH (10:28)
--- NOTE | 2022-11-09 10:47 | NUR ---
RT NOTES increase R.R high 30s, per RN, pt is about to receive pain meds. if no improvement, will switch back to AC.
--- NOTE | 2022-11-09 11:22 | NUR ---
RT NOTES end cpap pt remains tachypneic, vent back to AC. RN aware.
[2022-11-09] MEDS: IPRATROPIUM/ALBUTEROL SULFATE 3 ML AMPUL.NEB (DUONEB) INH SCH ×2 (13:48→20:29)
[2022-11-09] MEDS: ERTAPENEM SODIUM 1 GM in NS 50 ML IV SCH (16:19)
[2022-11-09] MEDS: FLUCONAZOLE 200 mg/ NS 100 ML IV SCH (16:19)
[2022-11-09] MEDS: FENTANYL CITRATE-0.9 % NACL/PF 100 ML IV PRN (20:30)
[2022-11-10] VITALS (32 sets, daily range): BP systolic 90–118
[2022-11-10] MEDS: IPRATROPIUM/ALBUTEROL SULFATE 3 ML AMPUL.NEB (DUONEB) INH SCH ×4 (01:00→20:38)
[2022-11-10] MEDS: PANTOPRAZOLE SODIUM 40 MG/VIAL (PROTONIX) IVP SCH ×3 (01:56→22:00)
[2022-11-10] MEDS: metroNIDAZOLE 500 mg/NS 100 ML IV SCH ×3 (01:56→21:59)
[2022-11-10] MEDS: LevETIRAcetam 500 MG/5 ML UDC ORAL LIQUID PO SCH ×4 (01:57→22:01)
[2022-11-10] MEDS: methylPREDNISolone SOD SUCC/PF 62.5 MG/ML VIAL IVP SCH ×3 (01:57→22:00)
[2022-11-10 06:28] LABS: BASOPHILS % (AUTO) 0.1 % (0.0-2.0); HEMATOCRIT 28.4 % (36-48); HEMOGLOBIN 9.4 g/dL (12.0-16.0); LYMPHOCYTES # (AUTO) 1.5 K/uL (1.0-5.5); LYMPHOCYTES % (AUTO) 26.4 % (20.5-51.5); MEAN CORPUSCULAR HEMOGLOBIN 30 pg (27-31); MEAN CORPUSCULAR HGB CONC 33 % (32-36); MEAN CORPUSCULAR VOLUME 91 fL (79.0-98.0); MONOCYTES # (AUTO) 0.2 K/uL (0.0-1.0); NEUTROPHILS # (AUTO) 3.9 K/uL (1.8-7.7); NEUTROPHILS % (AUTO) 69.5 % (40.0-70.0); PLATELET COUNT (AUTO) 218 K/uL (130-430); RED BLOOD CELL COUNT(AUTO) 3.11 MIL/uL (4.2-6.2); WHITE BLOOD COUNT (AUTO) 5.7 K/uL (4.8-10.8)
[2022-11-10 06:54] LABS: ANION GAP 6 (5-15); CALCIUM 7.1 mg/dL (8.4-11.0); CHLORIDE 114 mmol/L (98-107); CREATININE 0.44 mg/dL (0.55-1.30); GLUCOSE 139 mg/dL (70-99); UREA NITROGEN, BLOOD 30 mg/dL (8-21)
--- NOTE | 2022-11-10 07:45 | NUR ---
RT NOTES Dr Malik, witnessed pt being severely tachypneic in the 40s and tachycardic on AC settings and aware that HHN tx was just given. Rn Li at bedside during 's rounding. @0748 FIO2 to 0.40 due to low sat 89-91%, improved 92-94%. Rn aware.
[2022-11-10] MEDS: FUROSEMIDE 40 MG/4 ML VIAL IVP SCH ×2 (08:47→22:00)
[2022-11-10] MEDS: CALCIUM 500 MG/TAB PO SCH (08:48)
[2022-11-10] MEDS: MORPHINE 2 MG/ML INJ. SYRINGE IVP PRN ×3 (09:21→18:27)
--- NOTE | 2022-11-10 09:22 | NUR ---
RT NOTES RN at bedside. Pt is still tachycardic and tachypneic (39), unable to do cpap trial. Will try once pt's breathing condition is stable.
[2022-11-10] MEDS: ACETAMINOPHEN 325 MG TABLET PO PRN (09:56)
[2022-11-10] MEDS: ERTAPENEM SODIUM 1 GM in NS 50 ML IV SCH (12:59)
--- NOTE | 2022-11-10 13:30 | NUR ---
Nutrition F/U RD reviewed pts current EMR including diet hx, physician notes, nursing notes, pertinent labs/meds/procedures, care trends and care activity. Admitting Dx: Acute Respiratory Failure 11/10 Sx Progress Notes: pt tolerating TF; sigmoid stricture; respiratory failure 11/10 GI Progress Notes: perforated viscous s/p Sx September 2022; anemia; EGD showed gastritis; colo showed tortuous sigmoid colon and could not pass; no overt GI bleeding; CT showed thickening of the descending/sigmoid and dilation ofd the transverse Subjective Information: RD attended LOS meeting this morning -- credit charge authorizer reported that pt continues on vent/sedation/daily CPAP trials. RD spoke w/ Dr. Sheth (surgeon) today, and he was concerned w/ pt's high sodium levels, and would like for pt to increase water flush frequency as well as TF rate to improve ALB levels/lean muscle mass preservation. RD suggested protein supplement, however, he was not interested at this time d/t pt's currently increasing BUN levels. RD visited ICU this afternoon and relayed new recs to primary RN. He stated pt remains under contact iso d/t ESBL/Klebsiella of sputum. He stated pt has been tolerating TF well, and has had a bit of loose BM via flexiseal today. RD also visited pt's room and spoke w/ pt's daughter to relay new plans for TF and water flush increase. Current Diet Order/Nutrition Support: Vital AF 1.2 at 45 mm/hr, Free Water Flush: 100 ml Q4h via OGT x4 days Pertinent Labs: H/H 9.4 L/28.4 L, Na 147 H, K 3.5 WNL, BUN 30 H, CRE 0.44 L, BG 139 H, ALB 1.4 L; 11/02: HgA1c 4.88 WNL % PO intake N/A Last BM 200 ml via flexiseal 11/09 NEW Estimated Energy Expenditure (kcals/day) 1317 (PSU d/t critical illness, intubated; MSJ: 942; Ve: 14.9; Tmax: 36.9'C) Estimated Protein Required (g/day) 65-100 (1.3-2 gm/kg CBW d/t critical illness, hypermetabolic state) NEW Estimated Fluid Required (l/day) 1.3-1.5 (25-30 ml/kg CBW d/t GERIAT maintenance) Problem/Etiology/Signs/Symptoms Complicated GI function R/T pathophysiological factors AEB H/H 8.1L/23.8L and further GI workup. *Improving Inadequate nutrient intakes R/T critical illness AEB no current nutrition support. *Improving w/ current TF Expected Outcomes/Goals - Monitor provision of nutrition support w/ goal of pt meeting at least 50% of estimated nutritional needs, labs trending WNL, normal GI function, and skin integrity/wt maintenance Dietitian Recommendations * Vital AF 1.2 at 50 ml/hr (new goal rate), Free Water Flush: 100 ml Q4h via OGT Provides: 1440 kcal/day, 90 gm protein/day, and 1573 ml free water/day Meets: 109% of estimated caloric needs, 90% of upper end of estimated protein needs, and 105% of upper end of estimated fluid needs *If/when pt is extubated, please contact RD to re-assess nutrient needs Follow up * High Risk: RD to F/U within 2-3 days
--- NOTE | 2022-11-10 13:35 | NUR ---
Dietitian Recommendations * Vital AF 1.2 at 50 ml/hr (new goal rate), Free Water Flush: 100 ml Q4h via OGT Provides: 1440 kcal/day, 90 gm protein/day, and 1573 ml free water/day Meets: 109% of estimated caloric needs, 90% of upper end of estimated protein needs, and 105% of upper end of estimated fluid needs *If/when pt is extubated, please contact RD to re-assess nutrient needs LP, MS, RD Please refer to Nutrition F/U for details.
[2022-11-10] MEDS: FLUCONAZOLE 200 mg/ NS 100 ML IV SCH (14:04)
[2022-11-11] VITALS (34 sets, daily range): BP systolic 86–113
[2022-11-11] MEDS: IPRATROPIUM/ALBUTEROL SULFATE 3 ML AMPUL.NEB (DUONEB) INH SCH ×4 (01:28→19:54)
--- NOTE | 2022-11-11 02:28 | NUR ---
PT DID NOT WANT THE BIPAP ANYMORE. PUT THE PT ON A NRB AND SHE HER SATS WERE 97.
--- NOTE | 2022-11-11 02:30 | NUR ---
RT NOTES DISREGARD LAST NOTE.
[2022-11-11] MEDS: MORPHINE 2 MG/ML INJ. SYRINGE IVP PRN ×2 (04:33→14:06)
[2022-11-11 05:45] LABS: BASOPHILS % (AUTO) 0.1 % (0.0-2.0); HEMATOCRIT 25.6 % (36-48); HEMOGLOBIN 8.5 g/dL (12.0-16.0); LYMPHOCYTES # (AUTO) 0.9 K/uL (1.0-5.5); LYMPHOCYTES % (AUTO) 17.3 % (20.5-51.5); MEAN CORPUSCULAR HEMOGLOBIN 30 pg (27-31); MEAN CORPUSCULAR HGB CONC 33 % (32-36); MEAN CORPUSCULAR VOLUME 91 fL (79.0-98.0); MONOCYTES # (AUTO) 0.1 K/uL (0.0-1.0); MONOCYTES % (AUTO) 1.3 % (1.7-9.3); NEUTROPHILS # (AUTO) 4.1 K/uL (1.8-7.7); NEUTROPHILS % (AUTO) 81.3 % (40.0-70.0); PLATELET COUNT (AUTO) 205 K/uL (130-430); RED BLOOD CELL COUNT(AUTO) 2.81 MIL/uL (4.2-6.2); RED CELL DISTRIBUTION WIDTH 15.2 % (9.0-15.0)
[2022-11-11 06:27] LABS: ANION GAP 8 (5-15); CHLORIDE 113 mmol/L (98-107); CREATININE 0.54 mg/dL (0.55-1.30); GLUCOSE 189 mg/dL (70-99); UREA NITROGEN, BLOOD 35 mg/dL (8-21)
[2022-11-11 06:34] LABS: CALCIUM 6.7 mg/dL (8.4-11.0)
[2022-11-11] MEDS: LevETIRAcetam 500 MG/5 ML UDC ORAL LIQUID PO SCH ×3 (06:34→21:29)
--- NOTE | 2022-11-11 07:30 | NUR ---
RECEIVED REPORT FROM RN PT IN BED RESTING, VS 85 HR, 22 RR, 98% SAO2, 102/60 BP. PRECEDEX RUNNING AT 1.4, NS RUNNING AT 10 (TKO). VENT SETTINGS 23CM AT LIP, AC/VC AT 20, FIO2 40%, TV 400, AND PEEP 5.0
[2022-11-11] MEDS: PANTOPRAZOLE SODIUM 40 MG/VIAL (PROTONIX) IVP SCH ×2 (08:09→21:28)
[2022-11-11] MEDS: metroNIDAZOLE 500 mg/NS 100 ML IV SCH ×2 (08:09→20:54)
[2022-11-11] MEDS: CALCIUM 500 MG/TAB PO SCH (08:09)
[2022-11-11] MEDS: FUROSEMIDE 40 MG/4 ML VIAL IVP SCH (08:11)
[2022-11-11] MEDS: METHYLPREDNISOLONE SOD SUCC 40 MG/ML VIAL IVP SCH ×2 (08:12→21:28)
--- NOTE | 2022-11-11 10:00 | NUR ---
DR. LONG ROUNDED AT PATIENT BEDSIDE INFORMED OF PATIENT C.DIFF STATUS. NO CHANGES IN ORDERS AT THIS TIME.
--- NOTE | 2022-11-11 10:22 | NUR ---
ATTEMPTED DAILY CPAP TRIAL BUT PATIENT NOT TOLERATED AT THIS TIME. IMMEDIATELY AFTER CHANGING TO CPAP MODE PATIENT BECAME TACHYPNEIC, RR 30'S AND STATED DIFFICULTLY OF BREATHING. WILL ATTEMPT CPAP TRIAL LATER.
[2022-11-11] MEDS ORDERED: FUROSEMIDE 40 MG/4 ML VIAL IVP ONE (12:00)
[2022-11-11] MEDS: VANCOMYCIN HCL ORAL SOLUTION 125 MG/5 ML, 150 ML PO SCH ×3 (12:03→20:53)
[2022-11-11] MEDS: ERTAPENEM SODIUM 1 GM in NS 50 ML IV SCH (12:04)
[2022-11-11] MEDS: POTASSIUM CHLORIDE 20 MEQ/PKT PACKET PO PRN (12:04)
--- NOTE | 2022-11-11 12:30 | NUR ---
TEMP INCREASE TO 100.3 AT 1200 LIGHTS TURNED OFF AND BLANKET REMOVED, 325 MG ACETAMINOPHEN GIVEN. 1230 TEMP DECREASED TO 99.3
[2022-11-11] MEDS: ACETAMINOPHEN 325 MG TABLET PO PRN ×2 (12:41→18:48)
[2022-11-11] MEDS ORDERED: VANCOMYCIN HCL Non-Formulary 125 MG CAPSULE PO SCH (13:00)
[2022-11-11] MEDS: FLUCONAZOLE 200 mg/ NS 100 ML IV SCH (13:04)
--- NOTE | 2022-11-11 16:00 | NUR ---
WATER FLUSHES INCREASED TO 150 ML Q4H PATIENT TEMPERATURE DOWN TO 98.1, LIGHTS OFF, ONE BLANKET ON, ICEPACK (UNUSED) AT BEDSIDE. LEVEL OF ALERTNESS HAS NOT CHANGED OVER COURSE OF DAY. RESPONDS TO COMMANDS.
--- NOTE | 2022-11-11 19:10 | NUR ---
CARE ENDORSED TO LABOR TRAINING MANAGER RN.
--- NOTE | 2022-11-11 19:30 | NUR ---
RECEIVED SEDATED WITH PRECEDEX AT 1.4 MCG/KG/HR, RASS -2. OPENS EYES TO VOICE AND TOUCH. ORALLY INTUBATED, AC 20, FIO2 40%, TV 400 AND PEEP 5. SAT 94-96%. SUCTIONED SMALL AMOUNT OF WHITISH SECRETIONS. HAS NS AT TKO RATE, INFUSING ON THE LEFT UPPER ARM DOUBLE LUMEN PICC.ABDOMEN IS SOFT AND NON-DISTENDED. NGT FEEDING OF VITAL AF AT 50 ML/HR. RESIDUAL IS GREATER THAN 80 ML. WILL MONITOR. HOB ELEVATED. ON ASPIRATION PRECAUTION.FLEXISEAL IS INTACT AND PATENT. HOOK INTACT AND PATENT WELL. TEMP 97.9.
[2022-11-11] MEDS: DESMOPRESSIN ACETATE 4 MCG/ML AMP IVP SCH (21:26)
[2022-11-11] MEDS: LACTOBACILLUS RHAMNOSUS GG 1 CAP CAPSULE PO SCH (21:29)
[2022-11-12] VITALS (30 sets, daily range): BP systolic 86–101
[2022-11-12] MEDS: IPRATROPIUM/ALBUTEROL SULFATE 3 ML AMPUL.NEB (DUONEB) INH SCH ×4 (01:59→19:59)
[2022-11-12 05:41] LABS: BASOPHILS % (AUTO) 0.1 % (0.0-2.0); HEMATOCRIT 24.5 % (36-48); HEMOGLOBIN 7.9 g/dL (12.0-16.0); LYMPHOCYTES # (AUTO) 0.6 K/uL (1.0-5.5); LYMPHOCYTES % (AUTO) 9.1 % (20.5-51.5); MEAN CORPUSCULAR HEMOGLOBIN 30 pg (27-31); MEAN CORPUSCULAR HGB CONC 32 % (32-36); MEAN CORPUSCULAR VOLUME 92 fL (79.0-98.0); MONOCYTES # (AUTO) 0.2 K/uL (0.0-1.0); MONOCYTES % (AUTO) 2.7 % (1.7-9.3); NEUTROPHILS # (AUTO) 5.5 K/uL (1.8-7.7); NEUTROPHILS % (AUTO) 88.1 % (40.0-70.0); PLATELET COUNT (AUTO) 194 K/uL (130-430); RED BLOOD CELL COUNT(AUTO) 2.67 MIL/uL (4.2-6.2); RED CELL DISTRIBUTION WIDTH 15.4 % (9.0-15.0); WHITE BLOOD COUNT (AUTO) 6.3 K/uL (4.8-10.8)
[2022-11-12 06:05] LABS: ANION GAP 7 (5-15); CALCIUM 7.1 mg/dL (8.4-11.0); CHLORIDE 113 mmol/L (98-107); CREATININE 0.48 mg/dL (0.55-1.30); GLUCOSE 174 mg/dL (70-99); UREA NITROGEN, BLOOD 37 mg/dL (8-21)
--- NOTE | 2022-11-12 07:56 | NUR ---
rt notes 0750 cpap trial, will monitor hr 86 rr27 sat 98% Addendum: 11/12/22 at 0757 by Elizabeth Pearson RT Amended: Links added.
[2022-11-12] MEDS: FUROSEMIDE 40 MG/4 ML VIAL IVP SCH (08:06)
[2022-11-12] MEDS: PANTOPRAZOLE SODIUM 40 MG/VIAL (PROTONIX) IVP SCH ×2 (08:07→21:34)
[2022-11-12] MEDS: METHYLPREDNISOLONE SOD SUCC 40 MG/ML VIAL IVP SCH ×2 (08:07→21:34)
[2022-11-12] MEDS: CALCIUM 500 MG/TAB PO SCH (08:08)
[2022-11-12] MEDS: ACETAMINOPHEN 325 MG TABLET PO PRN ×2 (08:08→15:17)
[2022-11-12] MEDS: LACTOBACILLUS RHAMNOSUS GG 1 CAP CAPSULE PO SCH ×2 (08:09→21:35)
[2022-11-12] MEDS: metroNIDAZOLE 500 mg/NS 100 ML IV SCH ×2 (08:09→21:32)
[2022-11-12] MEDS: DESMOPRESSIN ACETATE 4 MCG/ML AMP IVP SCH ×2 (08:20→21:33)
[2022-11-12] MEDS: POTASSIUM CHLORIDE 20 MEQ/PKT PACKET PO PRN (09:00)
[2022-11-12] MEDS: VANCOMYCIN HCL ORAL SOLUTION 125 MG/5 ML, 150 ML PO SCH ×4 (09:00→21:36)
--- NOTE | 2022-11-12 09:58 | NUR ---
rt notes 0950 pt placed back to , tolerated 2hr cpap trial. pete aware. Addendum: 11/12/22 at 1000 by Elizabeth Pearson RT Amended: Links added.
[2022-11-12] MEDS: FLUCONAZOLE 200 mg/ NS 100 ML IV SCH (14:10)
[2022-11-12] MEDS: LevETIRAcetam 500 MG/5 ML UDC ORAL LIQUID PO SCH ×2 (14:10→21:35)
[2022-11-12] MEDS: SULFAMETHOXAZOLE /TRIMETHOPRIM 10 ML in D5W 250 ML IV SCH ×2 (15:17→21:37)
--- NOTE | 2022-11-12 19:30 | NUR ---
RECEIVED SEDATED WITH PRECEDEX AT 0.9 MCG/KG/HR. RASS -2. OPENS EYES TO VERBAL STIMULI. ORALLY INTUBATED. ON AC 20, FIO2 40%, TV 400 AND PEEP 5. DIMINISHED BREATH SOUNDS ON THE LUNG BASES. CASHIER TUBE ROOM IS SHOWING NSR, DENIES CHEST PAIN. NS AT 10 ML/HR. ALL IVS ARE INFUSING VIA LUE DOUBLE LUMEN PICC. ABDOMEN IS SOFT. OGT FEEDING OF VITAL AF 1.2 AT 50 ML/HR. RESIDUAL IS > 100 ML, FEEDING ON HOLD FOR NOW AND WILL CONTINUE TO MONITOR. RECTAL TUBE DRAINING WELL, HOOK INTACT AND PATENT, DRAINING WELL. TEMP 100.1.
[2022-11-13] VITALS (29 sets, daily range): BP systolic 94–118
[2022-11-13] MEDS: IPRATROPIUM/ALBUTEROL SULFATE 3 ML AMPUL.NEB (DUONEB) INH SCH ×4 (01:55→20:00)
[2022-11-13] MEDS: SULFAMETHOXAZOLE /TRIMETHOPRIM 10 ML in D5W 250 ML IV SCH ×3 (05:48→21:06)
[2022-11-13] MEDS: LevETIRAcetam 500 MG/5 ML UDC ORAL LIQUID PO SCH ×3 (05:49→21:04)
[2022-11-13 06:18] LABS: BASOPHILS % (AUTO) 0.1 % (0.0-2.0); EOSINOPHILS % (AUTO) 0.1 % (0.0-4.0); HEMATOCRIT 27.7 % (36-48); HEMOGLOBIN 9.2 g/dL (12.0-16.0); LYMPHOCYTES # (AUTO) 0.4 K/uL (1.0-5.5); LYMPHOCYTES % (AUTO) 6.7 % (20.5-51.5); MEAN CORPUSCULAR HEMOGLOBIN 30 pg (27-31); MEAN CORPUSCULAR HGB CONC 33 % (32-36); MEAN CORPUSCULAR VOLUME 91 fL (79.0-98.0); MONOCYTES # (AUTO) 0.2 K/uL (0.0-1.0); NEUTROPHILS % (AUTO) 90.1 % (40.0-70.0); PLATELET COUNT (AUTO) 174 K/uL (130-430); RED BLOOD CELL COUNT(AUTO) 3.04 MIL/uL (4.2-6.2); RED CELL DISTRIBUTION WIDTH 14.5 % (9.0-15.0); WHITE BLOOD COUNT (AUTO) 5.5 K/uL (4.8-10.8)
[2022-11-13 07:04] LABS: ANION GAP 8 (5-15); CALCIUM 7.3 mg/dL (8.4-11.0); CHLORIDE 111 mmol/L (98-107); CREATININE 0.54 mg/dL (0.55-1.30); GLUCOSE 218 mg/dL (70-99); UREA NITROGEN, BLOOD 36 mg/dL (8-21)
--- NOTE | 2022-11-13 07:49 | NUR ---
RT NOTES 0735 CPAP TRIAL STARTED, PT TOLERATING, SAT 97% RR27 WILL CONT TO MONITOR. Addendum: 11/13/22 at 0750 by Elizabeth Pearson RT Amended: Links added.
[2022-11-13] MEDS: FUROSEMIDE 40 MG/4 ML VIAL IVP SCH (08:14)
[2022-11-13] MEDS: metroNIDAZOLE 500 mg/NS 100 ML IV SCH ×2 (08:14→21:03)
[2022-11-13] MEDS: PANTOPRAZOLE SODIUM 40 MG/VIAL (PROTONIX) IVP SCH ×2 (08:15→21:04)
[2022-11-13] MEDS: VANCOMYCIN HCL ORAL SOLUTION 125 MG/5 ML, 150 ML PO SCH ×4 (08:15→22:06)
[2022-11-13] MEDS: METHYLPREDNISOLONE SOD SUCC 40 MG/ML VIAL IVP SCH ×2 (08:15→21:04)
[2022-11-13] MEDS: LACTOBACILLUS RHAMNOSUS GG 1 CAP CAPSULE PO SCH ×2 (08:15→21:06)
[2022-11-13] MEDS: CALCIUM 500 MG/TAB PO SCH (08:16)
[2022-11-13] MEDS ORDERED: HYDROcodone/ACETAMIN 5-325 MG TAB (NORCO/ VICODIN) PO PRN (09:45)
[2022-11-13] MEDS ORDERED: NALOXONE HCL 0.4 MG/ML AMP (NARCAN) IVP PRN ×2 (09:45→22:45)
--- NOTE | 2022-11-13 10:17 | NUR ---
rt notes 0950 weaning parameters on CPAP 5 ps12 NIF -21,-30,-24 VC 611 RSBI 64,58,55 RN AWARE Addendum: 11/13/22 at 1020 by Elizabeth Pearson RT Amended: Links added.
--- NOTE | 2022-11-13 11:14 | NUR ---
Nutrition F/U RD reviewed pts current EMR including diet hx, physician notes, nursing notes, pertinent labs/meds/procedures, care trends and care activity. Admitting Dx: Acute Respiratory Failure 11/10 Sx Progress Notes: pt tolerating TF; sigmoid stricture; respiratory failure 11/10 GI Progress Notes: perforated viscous s/p Sx September 2022; anemia; EGD showed gastritis; colo showed tortuous sigmoid colon and could not pass; no overt GI bleeding; CT showed thickening of the descending/sigmoid and dilation of the transverse 11/13: Progress note: pt respirations improving but has a ways to go before extubation. Prognosis guarded. Subjective Information: RD rounded to pt room and s/w pt RN, Vinay. She reports that she stopped TF for giving meds but would turn it back on soon to the goal rate of 50 mL/hr. RN reports no BM during her shift and GRV of ~160mL this morning. RD clarified if pt had OGT or NGT, d/t both being charted; Vinay confirmed pt has OGT. Per EMR review: abd firm, tender w/ active bowel sounds; GRV <100mL since 11/13; BP trending low (117/57L). Pt is likely meeting nutritional needs at this time. Current Diet Order/Nutrition Support: Vital AF 1.2 at 50 mL/hr, Free Water Flush: 100 ml Q4h via OGT x 3 days Pertinent Labs: H/H 9.2 L/27.7 L, Na 145 WNL, K 3.1 L, BUN 36 H, CRE 0.54 L, BG 218 H, ALB 1.4 L; 11/02: HgA1c 4.88 WNL % PO intake N/A Last BM 300 ml via flexiseal 11/13 Estimated Energy Expenditure (kcals/day) 1317 (PSU 2002b d/t critical illness, intubated; MSJ: 942; Ve: 14.9; Tmax: 36.9'C) Estimated Protein Required (g/day) 65-100 (1.3-2 gm/kg CBW d/t critical illness, hypermetabolic state) Estimated Fluid Required (l/day) 1.3-1.5 (25-30 ml/kg CBW d/t GERIAT maintenance) Problem/Etiology/Signs/Symptoms Complicated GI function R/T pathophysiological factors AEB H/H 8.1L/23.8L and further GI workup. *Improving Inadequate nutrient intakes R/T critical illness AEB no current nutrition support. *Improving w/ current TF Expected Outcomes/Goals - Monitor provision of nutrition support w/ goal of pt meeting at least 50% of estimated nutritional needs, labs trending WNL, normal GI function, and skin integrity/wt maintenance Dietitian Recommendations * Vital AF 1.2 at 50 ml/hr, Free Water Flush: 100 ml Q4h via OGT Provides: 1440 kcal/day, 90 gm protein/day, and 1573 ml free water/day Meets: 109% of estimated caloric needs, 90% of upper end of estimated protein needs, and 105% of upper end of estimated fluid needs *If/when pt is extubated, please contact RD to re-assess nutrient needs Follow up * High Risk: RD to F/U within 2-3 days ISAIAH, MPH, RD
--- NOTE | 2022-11-13 11:15 | NUR ---
Dietitian Recommendations * Vital AF 1.2 at 50 ml/hr, Free Water Flush: 100 ml Q4h via OGT Provides: 1440 kcal/day, 90 gm protein/day, and 1573 ml free water/day Meets: 109% of estimated caloric needs, 90% of upper end of estimated protein needs, and 105% of upper end of estimated fluid needs *If/when pt is extubated, please contact RD to re-assess nutrient needs GS, MPH, RD Please refer to Nutrition F/U for further details. Thanks!
[2022-11-13] MEDS: FLUCONAZOLE 200 mg/ NS 100 ML IV SCH (13:45)
--- NOTE | 2022-11-13 18:02 | NUR ---
RT NOTES 7935 PT PLACED BACK TO AC TOLERATED CPAP TRIAL, RN AWARE. Addendum: 11/13/22 at 1803 by Elizabeth Pearson RT Amended: Links added.
--- NOTE | 2022-11-13 22:30 | NUR ---
DR LONG GROUP CALLED PAIN 03/07 MORPHINE ORDERED
[2022-11-13] MEDS ORDERED: MORPHINE 2 MG/ML INJ. SYRINGE IVP ONE (22:45)
[2022-11-14] VITALS (11 sets, daily range): BP systolic 87–142
--- NOTE | 2022-11-14 00:30 | NUR ---
CALLED MD PT HAD EMESIS AND POSSIBLE ASPIRATION STAT CXR ORDERED
[2022-11-14] MEDS: IPRATROPIUM/ALBUTEROL SULFATE 3 ML AMPUL.NEB (DUONEB) INH SCH ×4 (01:00→19:50)
--- NOTE | 2022-11-14 01:15 | NUR ---
INCREASE O2 DEMAND PT SAT'S DECREASEING AND FIO2 INCREASED FROM 40% TO 100%
--- NOTE | 2022-11-14 03:00 | NUR ---
CXR RESLUT CAN NOT RULE OUT ASPIRATION OF LEFT LUNG
--- NOTE | 2022-11-14 03:30 | NUR ---
CXR REPORT ET TUBE AT THE STEPHANIE SUGGEST REDRAW 2-3 CM. CALLED
--- NOTE | 2022-11-14 03:35 | NUR ---
NEELA CALLED OK TO WITHDRAW ET TUBE 2-3 CM
--- NOTE | 2022-11-14 04:30 | NUR ---
RT ADJUST ET TUBE ET TUBE CHANGE TO 21 AT THE LIP
[2022-11-14 05:40] LABS: BASOPHILS % (AUTO) 0.2 % (0.0-2.0); HEMATOCRIT 36.7 % (36-48); LYMPHOCYTES # (AUTO) 0.6 K/uL (1.0-5.5); LYMPHOCYTES % (AUTO) 12.1 % (20.5-51.5); MEAN CORPUSCULAR HEMOGLOBIN 30 pg (27-31); MEAN CORPUSCULAR HGB CONC 33 % (32-36); MEAN CORPUSCULAR VOLUME 92 fL (79.0-98.0); MONOCYTES # (AUTO) 0.1 K/uL (0.0-1.0); MONOCYTES % (AUTO) 1.5 % (1.7-9.3); NEUTROPHILS # (AUTO) 4.2 K/uL (1.8-7.7); NEUTROPHILS % (AUTO) 86.2 % (40.0-70.0); PLATELET COUNT (AUTO) 181 K/uL (130-430); RED BLOOD CELL COUNT(AUTO) 3.98 MIL/uL (4.2-6.2); RED CELL DISTRIBUTION WIDTH 15.3 % (9.0-15.0); WHITE BLOOD COUNT (AUTO) 4.8 K/uL (4.8-10.8)
[2022-11-14] MEDS: LevETIRAcetam 500 MG/5 ML UDC ORAL LIQUID PO SCH ×2 (06:00→14:00)
--- NOTE | 2022-11-14 06:01 | NUR ---
DR LR NOTIFIED PT TACHYCARDIC, WILL BE IN TO SEE PT
--- NOTE | 2022-11-14 06:05 | NUR ---
SHARRON NOTIFIED PT INCREASE NEED OF O2 AFTER EMESIS.
[2022-11-14 06:10] LABS: ANION GAP 6 (5-15); CALCIUM 7.6 mg/dL (8.4-11.0); CHLORIDE 111 mmol/L (98-107); CREATININE 0.72 mg/dL (0.55-1.30); GLUCOSE 159 mg/dL (70-99); UREA NITROGEN, BLOOD 39 mg/dL (8-21)
--- NOTE | 2022-11-14 06:44 | NUR ---
SPOKE WITH JAYCE REGARDING ORDERS FROM DR. GONZALEZ REQUESTED BY THE RN FOR SILVIA
--- NOTE | 2022-11-14 06:54 | NUR ---
SPOKE WITH ADAM REQUESTING ORDERS FROM DR. MCDERMOTT FOR TACHYPNEA.
[2022-11-14] MEDS ORDERED: FENTANYL CITRATE-0.9 % NACL/PF 100 ML IV PRN (08:00)
--- NOTE | 2022-11-14 08:04 | NUR ---
DR LONG GROUP CALLED PT REPORT PAIN LEVEL 10/10 AFTER NORCO GIVEN
[2022-11-14] MEDS: SULFAMETHOXAZOLE /TRIMETHOPRIM 10 ML in D5W 250 ML IV SCH ×2 (08:30→15:09)
[2022-11-14] MEDS: LACTOBACILLUS RHAMNOSUS GG 1 CAP CAPSULE PO SCH (08:31)
[2022-11-14] MEDS: VANCOMYCIN HCL ORAL SOLUTION 125 MG/5 ML, 150 ML PO SCH ×3 (08:32→17:00)
[2022-11-14] MEDS: CALCIUM 500 MG/TAB PO SCH (08:32)
[2022-11-14] MEDS: PANTOPRAZOLE SODIUM 40 MG/VIAL (PROTONIX) IVP SCH (08:42)
[2022-11-14] MEDS: METHYLPREDNISOLONE SOD SUCC 40 MG/ML VIAL IVP SCH (08:42)
[2022-11-14] MEDS: FUROSEMIDE 40 MG/4 ML VIAL IVP SCH (08:43)
[2022-11-14] MEDS ORDERED: PROPOFOL DRIP 100 ML IV ONE (08:51)
[2022-11-14] MEDS ORDERED: PROPOFOL DRIP 100 ML IV PRN (09:00)
[2022-11-14] MEDS ORDERED: NS 500 ML IV ONE (09:00)
[2022-11-14] MEDS: metroNIDAZOLE 500 mg/NS 100 ML IV SCH (10:59)
[2022-11-14] MEDS ORDERED: MIDAZOLAM IN NACL,ISO-OSMOT/PF 100 ML IV ONE (11:10)
[2022-11-14] MEDS: FLUCONAZOLE 200 mg/ NS 100 ML IV SCH (13:10)
[2022-11-14] MEDS ORDERED: MIDAZOLAM IN NACL,ISO-OSMOT/PF 100 ML IV PRN (14:00)
[2022-11-14] MEDS ORDERED: metroNIDAZOLE 500 mg/NS 100 ML IV SCH (14:00)
--- NOTE | 2022-11-14 15:28 | NUR ---
PATIENT CODED, HEART RATE WENT FROM 80s TO 45. NO PULSES PALPATED. CODE BLUE CALLED.
--- NOTE | 2022-11-14 16:00 | NUR ---
PATIENT STARTED ON LEVOPHED AND DOPAMINE, FAMILY AT BEDSIDE. DR. MCDERMOTT SPOKE TO FAMILY, FAMILY DISCUSSED THEIR WISHES TO MAKE PATIENT A DNR. DR. MCDERMOTT SIGNED THE CODE STATUS TO MAKE PATIENT A DNR.
--- NOTE | 2022-11-14 16:00 | NUR ---
At bedside due to a code blue being called. The family waited in the ICU waiting room. At the direction of JESSICA Hinds, I went to invite the family back n to see the patient. At bedside, ED Dr. Marie spoke to the family and discussed her clinical condition. At this time, the patient remains a full code. I advised the nurse if there was anything else needed from Safety Assistant, we would be available.
[2022-11-14] MEDS ORDERED: DOPamine PREMIX 250 ML IV ONE (16:10)
[2022-11-14] MEDS ORDERED: DOPamine PREMIX 250 ML IV PRN (16:15)
[2022-11-14] MEDS ORDERED: SODIUM BICARBONATE 8.4% JECT 50 MEQ/50 ML SYRINGE ONE (16:44)
[2022-11-14 16:47] LABS: HEMATOCRIT 29.2 % (36-48); MEAN CORPUSCULAR HEMOGLOBIN 30 pg (27-31); MEAN CORPUSCULAR HGB CONC 31 % (32-36); MEAN CORPUSCULAR VOLUME 99 fL (79.0-98.0); RED BLOOD CELL COUNT(AUTO) 2.96 MIL/uL (4.2-6.2); RED CELL DISTRIBUTION WIDTH 16.5 % (9.0-15.0); WHITE BLOOD COUNT (AUTO) 6.5 K/uL (4.8-10.8)
[2022-11-14 17:12] LABS: PLATELET COUNT (AUTO) 103 K/uL (130-430)
[2022-11-14 17:15] LABS: BAND % (MANUAL) 22 % (0-6); BASOPHILS % (MANUAL) 0 % (0-2); CORRECTED WHITE BLOOD COUNT 5.2 K/uL (4.5-11.0); EOSINOPHILS % (MANUAL) 0 % (0-7); LYMPHOCYTES % (MANUAL) 18 % (20-46); METAMYELOCYTES % 2 % (0-0); MONOCYTES % (MANUAL) 2 % (0-11)
[2022-11-14] MEDS: NOREPINEPHRINE BITARTRATE 4 MG in NS 246 ML IV PRN (17:56)
[2022-11-14] MEDS ORDERED: SODIUM BICARBONATE 8.4% JECT 100 MEQ in 0.45% NACL 1,000 ML IV SCH (18:00)
[2022-11-14] MEDS ORDERED: NOREPINEPHRINE BITARTRATE 16 MG in NS 234 ML IV PRN (21:15)
[2022-11-14] MEDS ORDERED: NOREPINEPHRINE 4 MG/4 ML VIAL IV ONE (21:34)
[2022-11-15] MEDS: IPRATROPIUM/ALBUTEROL SULFATE 3 ML AMPUL.NEB (DUONEB) INH SCH (00:55)
[2022-11-15 01:34] LABS: BASOPHILS % (AUTO) 0.1 % (0.0-2.0); EOSINOPHILS # (AUTO) 0.1 K/uL (0.0-0.4); EOSINOPHILS % (AUTO) 2.7 % (0.0-4.0); HEMATOCRIT 32.7 % (36-48); HEMOGLOBIN 9.9 g/dL (12.0-16.0); LYMPHOCYTES # (AUTO) 0.7 K/uL (1.0-5.5); LYMPHOCYTES % (AUTO) 14.8 % (20.5-51.5); MEAN CORPUSCULAR HEMOGLOBIN 31 pg (27-31); MEAN CORPUSCULAR HGB CONC 30 % (32-36); MEAN CORPUSCULAR VOLUME 101 fL (79.0-98.0); MONOCYTES # (AUTO) 0.1 K/uL (0.0-1.0); MONOCYTES % (AUTO) 1.7 % (1.7-9.3); NEUTROPHILS # (AUTO) 3.8 K/uL (1.8-7.7); NEUTROPHILS % (AUTO) 80.7 % (40.0-70.0); RED BLOOD CELL COUNT(AUTO) 3.23 MIL/uL (4.2-6.2); RED CELL DISTRIBUTION WIDTH 17.3 % (9.0-15.0); WHITE BLOOD COUNT (AUTO) 4.7 K/uL (4.8-10.8)
[2022-11-15 01:45] LABS: PLATELET COUNT (AUTO) 59 K/uL (130-430)
[2022-11-15 01:58] LABS: ALANINE AMINOTRANSFERASE 2092 U/L (12-78); ALBUMIN 0.8 g/dL (3.4-4.8); ANION GAP 21 (5-15); ASPARTATE AMINOTRANSFERASE < 5 U/L (10-37); CALCIUM 7.5 mg/dL (8.4-11.0); CHLORIDE 107 mmol/L (98-107); CREATININE 1.28 mg/dL (0.55-1.30); LIPASE 127 U/L (73-393); TOTAL BILIRUBIN 1.5 mg/dL (0.0-1.0); UREA NITROGEN, BLOOD 53 mg/dL (8-21)
[2022-11-15 02:12] LABS: GLUCOSE 16 mg/dL (70-99)
[2022-11-15 05:40] VITALS: BP_SYST 87
--- NOTE | 2022-11-16 11:25 | NUR ---
Telephone call made to the daughter, Aster Christianson, regarding the remains of the patient. Condolences were provided to the daughter on behalf of the hospital. I informed her of the reason for the call and inquired if the family had made a decision on who will pickling machine operator the remains of the body. She states her and her daughter have two options in made and will make a determination today. She advised that she would call me back by 4:30p to advise me of the final arrangements.
--- NOTE | 2022-11-16 14:06 | NUR ---
Email sent to the daughter, Aster Christianson, after she called requesting referrals from the hospital on local cremation services. Several referrals were sent to the daughter for her review. The daughter states she will call back by 4:30p. Aster Christianson: [email or web address]
--- NOTE | 2022-11-17 13:36 | NUR ---
Window Shade Ring Coverer GENERATOR OPERATOR called pts. dtr, Aster Christianson, who stated the family has gone with "A [facility] in [place], . Joel's brother Brandie paid in full already. Contact at [facility] is Elliot or Franc. GENERATOR OPERATOR called and spoke to Elliot at [facility] who will forward the release to our House Sup. Aly. GENERATOR OPERATOR gave Elliot Tejada's fax. Remains can be picked up today. GENERATOR OPERATOR called Jermain to give him info and asked him to contact [facility] to make arrangements for pickle water pump operator. GENERATOR OPERATOR will remain available as needed.
== END 2022-11-15 03:16 | DRG 870 ==
LOC: SED 12:15 → EDBD 12:15 → SIC 13:38 → MERGE 13:38 → SIC 15:18
PROVIDERS: ADMIT General Practice; ATTEND General Practice
PROC: 5A1955Z Respiratory Ventilation, Greater than 96 Consecutive Hours (ICD-10-PCS; principal; 2022-11-02)
PROC: 30233N1 Transfusion of Nonautologous Red Blood Cells into Peripheral Vein, Percutaneous Approach (ICD-10-PCS; 2022-11-02)
PROC: 0BH17EZ Insertion of Endotracheal Airway into Trachea, Via Natural or Artificial Opening (ICD-10-PCS; 2022-11-02)
PROC: 5A12012 Performance of Cardiac Output, Single, Manual (ICD-10-PCS; 2022-11-14)
PROC: 0B918ZZ Drainage of Trachea, Via Natural or Artificial Opening Endoscopic (ICD-10-PCS; 2022-11-14)
DX: A41.9 Sepsis, unspecified organism (principal); R65.21 Severe sepsis with septic shock; J69.0 Pneumonitis due to inhalation of food and vomit; I21.A1 Myocardial infarction type 2; E43 Unspecified severe protein-calorie malnutrition; J96.21 Acute and chronic respiratory failure with hypoxia; G93.1 Anoxic brain damage, not elsewhere classified; E87.0 Hyperosmolality and hypernatremia; J43.9 Emphysema, unspecified; E87.6 Hypokalemia; D50.0 Iron deficiency anemia secondary to blood loss (chronic); G40.909 Epilepsy, unspecified, not intractable, without status epilepticus; Z68.20 Body mass index [BMI] 20.0-20.9, adult; Z86.73 Personal history of transient ischemic attack (TIA), and cerebral infarction without residual deficits; Z79.1 Long term (current) use of non-steroidal anti-inflammatories (NSAID); Z79.899 Other long term (current) drug therapy; Z98.2 Presence of cerebrospinal fluid drainage device; Z87.891 Personal history of nicotine dependence; Z74.01 Bed confinement status; I46.9 Cardiac arrest, cause unspecified
CPT/HCPCS: 36415; 36600; 70450-TC; 71045; 74018; 74021; 76376; 80048; 80053; 80202; 81000; 82803; 83037; 83605; 83690; 83735; 83880; 84100; 84132; 84478; 84484; 85007; 85025; 85027; 85610-TC; 85730-TC; 86140; 86886; 86900; 86901; 86920; 87040; 87070; 87070-TC; 87081; 87086; 87101; 87205-TC; 87230-TC; 93005; 94002; 94003; 94640; 94760; 99291; C9113; J1030; J1265; J1335; J1450; J1940; J2185; J2270; J2543; J2597; J2704; J2930; J3010; J3370; J3430; J3475; J3480; J3490; J7050; J7060; P9021; Q9964; Q9966; Q9967